=== PATIENT | male | born 1955 | race Caucasian/White ===

== ENCOUNTER 2017-01-04 21:58 | Emergency (ER) | payer MEDICARE, BC ==
[2017-01-04] MEDS ORDERED: HYDROmorphone 1 MG/ML 1 ML SYRINGE IM STA (22:17)
[2017-01-04 22:19] VITALS: RESP 16
--- NOTE | 2017-01-05 00:01 | XR ---
HIP AND PELVIS, 3 views INDICATION: Fall COMPARISON: None FINDINGS: AP view of the pelvis and AP and crosstable lateral views of the left hip are obtained. The bones are osteopenic. The sacroiliac joints, hip joints, and pubic symphysis are normally aligned. Stool-filled rectum partially obscures the sacrum and coccyx. There is lumbosacral fusion hardware with fractured sacral screw visible on the lateral view. Surgical clips project over the left sacrum. There is severe osteoarthritis of the left hip with bone on bone articulation, femoral collar osteophytes, subchondral sclerosis, and cystic changes involving both the acetabulum and the femoral head there is remodeling of the femoral head with flattening superiorly. No acute displaced fracture is visualized. IMPRESSION: 1. No acute fracture or dislocation identified. 2. Severe left hip osteoarthritis. 3. Lumbosacral fusion hardware with fractured sacral screw.
--- NOTE | 2017-01-05 00:37 | ED ---
Fall HPI - General Stated Complaint: FALL Time Seen by Provider: 01/04/17 22:04 Source: patient, EMS Mode of arrival: EMS - Related Data Home Medications Medication Instructions Recorded Confirmed Baclofen [Lioresal] 10 mg PO TID 08/08/15 01/04/17 HYDROcodone/APAP 10-325MG [[place] 1 tab PO Q6HR PRN 08/08/15 01/04/17 10-325] Phentermine HCl [Adipex-P] 37.5 mg PO QAM PRN 08/08/15 01/04/17 Furosemide [Lasix] 40 mg PO HS 01/04/17 01/04/17 Sertraline HCl [Zoloft] 50 mg PO HS 01/04/17 01/04/17 Allergies Allergy/AdvReac Type Severity Reaction Status Date / Time No Known Allergies Allergy Verified 01/04/17 22:19 Review of Systems ROS Statement: Those systems with pertinent positive or pertinent negative responses have been documented in the HPI. ROS Other: All systems not noted in ROS Statement are negative. Past Medical History Past Medical History: No Reported History Additional Past Medical History / Comment(s): falls(most recent 08-08-15) MS, arthritis lt hip, occ leg tremors, migraines in past. past bedsore between buttocks-since healed History of Any Multi-Drug Resistant Organisms: None Reported Past Surgical History: Appendectomy, Back Surgery, Orthopedic Surgery Additional Past Surgical History / Comment(s): pain pump, lt knee meniscus repair, back sx plate/screws, nose severed off when salt grinder flew into face-had sx to repair Past Anesthesia/Blood Transfusion Reactions: No Reported Reaction Additional Past Anesthesia/Blood Transfusion Reaction / Comment(s): clausterphobia Past Psychological History: Depression Smoking Status: Never smoker Past Alcohol Use History: None Reported Past Drug Use History: Marijuana - Past Family History Mother Family Medical History: Cancer, Dementia Additional Family Medical History / Comment(s): breast cancer Father Additional Family Medical History / Comment(s): after anuerysm sx General Exam Limitations: physical limitation Course Vital Signs 01/04/17 01/04/17 22:14 22:57 Temperature 98.3 F Pulse Rate 88 Respiratory 16 16 Rate Blood Pressure 143/86 O2 Sat by Pulse 99 Oximetry Disposition Clinical Impression: Fall, Hip pain, left Disposition: HOME SELF-CARE Condition: Good Instructions: Fall Prevention (ED), Hip Pain (ED) Referrals: Brendan Magaña MD [Primary Care Provider] - 1-2 days
[2017-01-05 00:59] VITALS: BP 168/70; PULSE 60; TEMP 98
== END 2017-01-05 00:58 | disposition home or self-care (01) ==
LOC: EC 21:58
DX: M25.552 Pain in left hip (principal); M16.12 Unilateral primary osteoarthritis, left hip; Z98.890 Other specified postprocedural states; Z79.899 Other long term (current) drug therapy; W05.0XXA Fall from non-moving wheelchair, initial encounter
CPT/HCPCS: 73502; 99283; 96372; J1170

== ENCOUNTER 2018-11-11 11:11 | Inpatient (IN) | payer BC, MEDICARE ==
[2018-11-11] MEDS ORDERED: SODIUM CHLORIDE 0.9% 500 ML 500 ML IV STA (11:55)
[2018-11-11] MEDS ORDERED: MORPHINE SULFATE 4 MG/ML SYRINGE IV STA (11:55)
[2018-11-11] MEDS ORDERED: SODIUM CHLORIDE 0.9% 1,000 ML IV STA ×2 (11:55)
--- NOTE | 2018-11-11 12:11 | ED ---
Weakness HPI - General Chief complaint: Extremity Problem,Nontraumatic Stated complaint: LEG PAIN Time Seen by Provider: 11/11/18 11:27 Source: patient, RN notes reviewed, old records reviewed Mode of arrival: EMS Limitations: no limitations - History of Present Illness Initial comments: This is a 63-year-old male the ER for evaluation. Patient has significant medical history significant for severe debility, patient has significant contractures and states having significant left hip pain. Muscle tightness and feels weak. No recent change in medications. No significant new injuries. MD Complaint: generalized weakness -: days(s) Location: generalized, LLE Severity: severe Severity scale (1-10): 8 Quality: aching Consistency: constant Improves with: none Worsens with: none Associated Symptoms: denies other symptoms - Related Data Home Medications Medication Instructions Recorded Confirmed Baclofen [Lioresal] 30 mg PO DAILY@2200 08/08/15 11/11/18 HYDROcodone/APAP 10-325MG [[place] 1 tab PO Q6HR PRN 08/08/15 11/11/18 10-325] Acetaminophen Tab [Tylenol Tab] 650 mg PO Q4H PRN 11/11/18 11/11/18 Baclofen [Lioresal] 20 mg PO BID@0600,1400 11/11/18 11/11/18 Bisacodyl 10 mg PO Q12H PRN 11/11/18 11/11/18 Cholecalciferol [Vitamin D3 (25 1,000 unit PO DAILY@0800 11/11/18 11/11/18 Mcg = 1000 Iu)] Cyanocobalamin (Vitamin B-12) 1,000 mcg PO DAILY@0800 11/11/18 11/11/18 [Vitamin B-12] Magnesium Oxide [Mag-Ox] 400 mg PO BID@0800,2000 11/11/18 11/11/18 Modafinil [Provigil] 200 mg PO DAILY PRN 11/11/18 11/11/18 Sennosides [Senna] 8.6 mg PO BID@0800,1600 11/11/18 11/11/18 Sertraline [Zoloft] 100 mg PO DAILY@0600 11/11/18 11/11/18 Allergies Allergy/AdvReac Type Severity Reaction Status Date / Time No Known Allergies Allergy Verified 11/11/18 11:29 Review of Systems ROS Statement: Those systems with pertinent positive or pertinent negative responses have been documented in the HPI. ROS Other: All systems not noted in ROS Statement are negative. Past Medical History Past Medical History: No Reported History Additional Past Medical History / Comment(s): falls(most recent 08-08-15) MS, arthritis lt hip, occ leg tremors, migraines in past. past bedsore between buttocks-since healed History of Any Multi-Drug Resistant Organisms: None Reported Past Surgical History: Appendectomy, Back Surgery, Orthopedic Surgery Additional Past Surgical History / Comment(s): pain pump, lt knee meniscus repair, back sx plate/screws, nose severed off when sausage grinder flew into face-had sx to repair Past Anesthesia/Blood Transfusion Reactions: No Reported Reaction Additional Past Anesthesia/Blood Transfusion Reaction / Comment(s): clausterphobia Past Psychological History: Depression Smoking Status: Never smoker Past Alcohol Use History: None Reported Past Drug Use History: None Reported, Marijuana - Past Family History Mother Family Medical History: Cancer, Dementia Additional Family Medical History / Comment(s): breast cancer Father Additional Family Medical History / Comment(s): after anuerysm sx General Exam Limitations: no limitations General appearance: alert, in no apparent distress Head exam: Present: atraumatic, normocephalic, normal inspection Eye exam: Present: normal appearance, PERRL, EOMI. Absent: scleral icterus, conjunctival injection, periorbital swelling ENT exam: Present: normal exam, mucous membranes moist Neck exam: Present: normal inspection. Absent: tenderness, meningismus, lymphadenopathy Respiratory exam: Present: normal lung sounds bilaterally. Absent: respiratory distress, wheezes, rales, rhonchi, stridor Cardiovascular Exam: Present: regular rate, normal rhythm, normal heart sounds. Absent: systolic murmur, diastolic murmur, rubs, gallop, clicks GI/Abdominal exam: Present: soft, normal bowel sounds. Absent: distended, tenderness, guarding, rebound, rigid Extremities exam: Present: normal inspection, full ROM, normal capillary refill. Absent: tenderness, pedal edema, joint swelling, calf tenderness Back exam: Present: normal inspection Neurological exam: Present: alert, oriented X3, CN II-XII intact Psychiatric exam: Present: normal affect, normal mood Skin exam: Present: warm, dry, intact, normal color. Absent: rash Course Vital Signs 11/11/18 11/11/18 11:20 13:05 Temperature 98.0 F Pulse Rate 81 64 Respiratory 18 18 Rate Blood Pressure 114/86 119/72 O2 Sat by Pulse 96 96 Oximetry - Reevaluation(s) Reevaluation #1: 11/11/18 12:43 Medical records reviewed Reevaluation #2: 11/11/18 14:22 Patient still with significant pain. Weakness. EKG Findings - EKG Comments: EKG Findings:: EKG shows sinus rhythm rate of 60, VT 126, QRS 80, QTC 41 Medical Decision Making - Medical Decision Making 63 male with chronic debility, patient currently was severe muscle contractures and pain. Will admit for symptomatic therapy and hydration - Lab Data Result diagrams: 11/11/18 12:14 11/11/18 12:14 Lab Results 11/11/18 11/11/18 11/11/18 Range/Units 12:14 12:14 12:14 WBC 7.3 (3.8-10.6) k/uL RBC 4.56 (4.30-5.90) m/uL Hgb 13.7 (13.0-17.5) gm/dL Hct 41.6 (39.0-53.0) % MCV 91.2 (80.0-100.0) fL MCH 29.9 (25.0-35.0) pg MCHC 32.8 (31.0-37.0) g/dL RDW 12.7 (11.5-15.5) % Plt Count 254 (150-450) k/uL Neutrophils % 73 % Lymphocytes % 17 % Monocytes % 7 % Eosinophils % 0 % Basophils % 0 % Neutrophils # 5.3 (1.3-7.7) k/uL Lymphocytes # 1.3 (1.0-4.8) k/uL Monocytes # 0.5 (0-1.0) k/uL Eosinophils # 0.0 (0-0.7) k/uL Basophils # 0.0 (0-0.2) k/uL PT (9.0-12.0) sec INR (<1.2) APTT (22.0-30.0) sec Sodium 143 (137-145) mmol/L Potassium 4.4 (3.5-5.1) mmol/L Chloride 108 H (98-107) mmol/L Carbon Dioxide 25 (22-30) mmol/L Anion Gap 10 mmol/L BUN 31 H (9-20) mg/dL Creatinine 0.72 (0.66-1.25) mg/dL Est GFR (CKD-EPI)AfAm >90 (>60 ml/min/1.73 sqM) Est GFR (CKD-EPI)NonAf >90 (>60 ml/min/1.73 sqM) Glucose 97 (74-99) mg/dL Plasma Lactic Acid Aung 0.8 (0.7-2.0) mmol/L Calcium 9.6 (8.4-10.2) mg/dL Phosphorus 3.7 (2.5-4.5) mg/dL Total Bilirubin 0.6 (0.2-1.3) mg/dL AST 13 L (17-59) U/L ALT 17 L (21-72) U/L Alkaline Phosphatase 91 (38-126) U/L Troponin I (0.000-0.034) ng/mL NT-Pro-B Natriuret Pep pg/mL Total Protein 6.8 (6.3-8.2) g/dL Albumin 4.1 (3.5-5.0) g/dL 11/11/18 11/11/18 11/11/18 Range/Units 12:14 12:14 12:14 WBC (3.8-10.6) k/uL RBC (4.30-5.90) m/uL Hgb (13.0-17.5) gm/dL Hct (39.0-53.0) % MCV (80.0-100.0) fL MCH (25.0-35.0) pg MCHC (31.0-37.0) g/dL RDW (11.5-15.5) % Plt Count (150-450) k/uL Neutrophils % % Lymphocytes % % Monocytes % % Eosinophils % % Basophils % % Neutrophils # (1.3-7.7) k/uL Lymphocytes # (1.0-4.8) k/uL Monocytes # (0-1.0) k/uL Eosinophils # (0-0.7) k/uL Basophils # (0-0.2) k/uL PT 9.7 (9.0-12.0) sec INR 0.9 (<1.2) APTT 25.0 (22.0-30.0) sec Sodium (137-145) mmol/L Potassium (3.5-5.1) mmol/L Chloride (98-107) mmol/L Carbon Dioxide (22-30) mmol/L Anion Gap mmol/L BUN (9-20) mg/dL Creatinine (0.66-1.25) mg/dL Est GFR (CKD-EPI)AfAm (>60 ml/min/1.73 sqM) Est GFR (CKD-EPI)NonAf (>60 ml/min/1.73 sqM) Glucose (74-99) mg/dL Plasma Lactic Acid Aung (0.7-2.0) mmol/L Calcium (8.4-10.2) mg/dL Phosphorus (2.5-4.5) mg/dL Total Bilirubin (0.2-1.3) mg/dL AST (17-59) U/L ALT (21-72) U/L Alkaline Phosphatase (38-126) U/L Troponin I <0.012 (0.000-0.034) ng/mL NT-Pro-B Natriuret Pep 26 pg/mL Total Protein (6.3-8.2) g/dL Albumin (3.5-5.0) g/dL - Radiology Data Radiology results: report reviewed (X-ray pelvis and left hip is negative for acute disease), image reviewed Disposition Clinical Impression: Muscle spasticity, Multiple falls, Left leg weakness, Weakness, Chronic pain, Dehydration Disposition: ADMITTED IP TO THIS [facility] Condition: Good Is patient prescribed a controlled substance at d/c from ED?: No Referrals: Brendan Magaña MD [Primary Care Provider] - 1-2 days
[2018-11-11 12:31] LABS: Basophils % (A) 0 %; Eosinophils % (A) 0 %; HCT 41.6 % (39.0-53.0); HGB 13.7 gm/dL (13.0-17.5); Lymphocytes # (A) 1.3 k/uL (1.0-4.8); Lymphocytes % (A) 17 %; MCH 29.9 pg (25.0-35.0); MCHC 32.8 g/dL (31.0-37.0); MCV 91.2 fL (80.0-100.0); Mean Platelet Volume 6.7; Monocytes # (A) 0.5 k/uL (0-1.0); Monocytes % (A) 7 %; Neutrophils # (A) 5.3 k/uL (1.3-7.7); Neutrophils % (A) 73 %; Platelet Count 254 k/uL (150-450); RBC 4.56 m/uL (4.30-5.90); RDW 12.7 % (11.5-15.5); WBC 7.3 k/uL (3.8-10.6)
[2018-11-11] MEDS ORDERED: DIAZEPAM 5 MG/ML 2 ML INJ IVP STA (12:36)
[2018-11-11 12:41] LABS: INR 0.9 (<1.2); Prothrombin Time 9.7 sec (9.0-12.0)
--- NOTE | 2018-11-11 13:03 | XR ---
EXAMINATION TYPE: XR chest 1V DATE OF EXAM: 11/11/2018 COMPARISON: NONE HISTORY: Weakness TECHNIQUE: Single frontal view of the chest is obtained. FINDINGS: There is no focal air space opacity, pleural effusion, or pneumothorax seen. The cardiac silhouette size is within normal limits. The osseous structures are intact. AC joint arthropathy. IMPRESSION: No acute process.
[2018-11-11 13:06] LABS: ALT 17 U/L (21-72); AST 13 U/L (17-59); African American GFR (CKD) >90 (>60 ml/min/1.73 sqM); Albumin 4.1 g/dL (3.5-5.0); Alkaline Phosphatase 91 U/L (38-126); Anion Gap 10 mmol/L; Blood Urea Nitrogen 31 mg/dL (9-20); Calcium 9.6 mg/dL (8.4-10.2); Carbon Dioxide 25 mmol/L (22-30); Chloride 108 mmol/L (98-107); Glucose 97 mg/dL (74-99); Phosphorus 3.7 mg/dL (2.5-4.5); Potassium 4.4 mmol/L (3.5-5.1); Sodium 143 mmol/L (137-145); Total Bilirubin 0.6 mg/dL (0.2-1.3); Total Protein 6.8 g/dL (6.3-8.2)
--- NOTE | 2018-11-11 13:06 | XR ---
EXAMINATION TYPE: XR Hip LT and AP Pelvis DATE OF EXAM: 11/11/2018 COMPARISON: 01/04/2017 HISTORY: Pain TECHNIQUE: A single AP view of the pelvis is obtained. Two views of the left hip are obtained. FINDINGS: The bones are osteopenic. The sacroiliac joints, hip joints, and pubic symphysis are brandon lly aligned. Stool-filled rectum partially obscures the sacrum and coccyx. There is lumbosacral fusio n hardware with fractured sacral screw visible on the lateral view. Surgical clips project over the l eft sacrum. There is severe osteoarthritis of the left hip with bone on bone articulation, femoral collar osteoph ytes, subchondral sclerosis, and cystic changes involving both the acetabulum and the femoral head th ere is remodeling of the femoral head with flattening superiorly. No acute displaced fracture is visu alized. IMPRESSION: 1. No acute fracture or dislocation identified. 2. Severe left hip osteoarthritis. Complete loss of joint space and remodeling of the femoral head ca n be seen with osteonecrosis. Sclerotic density along the neck of the femur could be on the basis of a chronic stress injury or fracture and is similar in appearance to the previous exam 3. Lumbosacral fusion hardware with fractured sacral screw.
[2018-11-11] MEDS ORDERED: ONDANSETRON 4 MG/2 ML VIAL IVP PRN (14:20)
[2018-11-11] MEDS ORDERED: MORPHINE SULFATE 4 MG/ML SYRINGE IVP PRN (14:20)
[2018-11-11] MEDS ORDERED: ONDANSETRON 4 MG/2 ML VIAL IVP STA (14:20)
[2018-11-11] MEDS ORDERED: ACETAMINOPHEN TAB 325 MG TAB PO PRN (16:34)
[2018-11-11] MEDS ORDERED: MODAFINIL 200 MG TAB PO PRN (16:34)
[2018-11-11] MEDS ORDERED: BISACODYL 5 MG TABLET.DR PO PRN (16:34)
[2018-11-11] MEDS ORDERED: ALPRAZolam 0.25 MG TAB PO PRN (16:36)
[2018-11-11] MEDS ORDERED: TEMAZEPAM 15 MG CAP PO PRN (16:36)
[2018-11-11 18:33] LABS: Appearance,Urine Clear (Clear); Bilirubin,Urine Negative (Negative); Blood,Urine Negative (Negative); Color,Urine Yellow; Glucose,Urine (UA) Negative (Negative); Ketones,Urine Negative (Negative); Leukocyte Esterase,Urine Negative (Negative); Nitrite,Urine Negative (Negative); PH, Urine 5.5 (5.0-8.0); Protein,Urine Negative (Negative); Specific Gravity,Urine 1.026 (1.001-1.035); Urobilinogen,Urine <2.0 mg/dL (<2.0)
[2018-11-11] MEDS: HYDROcodone/APAP 10-325MG 1 EACH TAB PO PRN (19:32)
[2018-11-11] MEDS: MAGNESIUM OXIDE 400 MG TAB PO SCH (19:32)
[2018-11-11] MEDS: BACLOFEN 10 MG TAB PO SCH (21:03)
[2018-11-11] MEDS: HEPARIN SODIUM,PORCINE 5,000 UNIT/ML 1 ML VIAL SQ SCH (21:03)
[2018-11-11] MEDS: HYDROmorphone 0.5 MG/0.5 ML SYRINGE IVP PRN (21:33)
--- NOTE | 2018-11-11 22:44 | HP ---
HISTORY AND PHYSICAL CHIEF COMPLAINT: Back pain and leg pain. HISTORY OF PRESENT ILLNESS: This 63-year-old gentleman with a past medical history of multiple medical problems including history of multiple sclerosis, history of chronic pain syndrome, history of DJD, had a pain pump inserted about 10 years ago and apparently subsequently pain pump was removed recently and the patient also had significant pains and aches as well. The patient was in [facility] at this time. The patient is complaining of severe pain especially when transferring. The patient taken to [facility] and admitted to the hospital for further evaluation and treatment. There is no history of fever, rigors or chills. No history of headache, loss of consciousness, seizures. The patient being followed by Dr. Magaña in the outpatient setting. PAST MEDICAL HISTORY: Past medical history of multiple sclerosis, history of chronic low back pain, history of back surgery, history of multiple falls and gait dysfunction. MEDICATIONS: Prior to admission include home medications are: 1. Zoloft 100 mg p.o. daily. 2. Senna 8.6 mg p.o. b.i.d. 4. Magnesium oxide 400 mg p.o. b.i.d. 5. [place] 10 mg q.6h p.r.n. 6. Vitamin B12 1000 mcg. 7. Vitamin D3 1000 units daily. 8. Bisacodyl 10 mg p.o. b.i.d. p.r.n. 9. Lioresal 20 mg p.o. b.i.d. 10.Lioresal 30 mg p.o. daily. 11.Tylenol 650 q.4 p.r.n. ALLERGIES: None. FAMILY HISTORY: History of cancer, dementia, breast cancer. SOCIAL HISTORY: No history of smoking. No history of alcohol. REVIEW OF SYSTEMS: ENT: No diminished vision. No diminished hearing. Cardiovascular: No angina or palpitations. RESPIRATORY: As mentioned earlier. GI no nausea or vomiting. no dysuria or hematuria. CENTRAL NERVOUS SYSTEM: As mentioned earlier. ALLERGY/IMMUNOLOGY: No asthma. No hayfever. MUSCULOSKELETAL: As mentioned earlier. HEMATOLOGY/ONCOLOGY: No anemia. Endocrine no history of diabetes or hypothyroid. CONSTITUTIONAL: As mentioned earlier. DERMATOLOGY: Negative. RHEUMATOLOGY: Negative. PSYCHIATRY: As mentioned earlier. PHYSICAL EXAMINATION: Patient is alert, oriented x3. The pulse is 64, blood pressure 119/72, respiration 18, temperature 98 degrees, pulse ox 97% on room air. HEENT: Conjunctivae normal. NECK: No jugular venous distention. Cardiovascular: S1, S2 muffled. RESPIRATORY: Breath sounds diminished in the bases. Bilateral scattered rhonchi and crackles. ABDOMEN: Soft, nontender. No mass palpable. LEGS: No edema. No swelling. NERVOUS SYSTEM: Higher functions as mentioned earlier, significant weakness and wasting in the present bilateral lower leg and lower legs, which is rather contracted. Wounds are very painful. Gait cannot be tested. SKIN: No ulcers, rashes or bleeding. JOINTS: No active deforming arthropathy. LYMPHATICS: No lymph nodes palpable in the neck, axillae or groin. LABS: CBC within normal limits, sodium 143, potassium 4.4, anion gap 31. AST, ALT normal. ASSESSMENT: 1. Severe back pain, leg pain as well as gait dysfunction. Dehydration with high BUN 2. Possible degenerative joint disease. 3. History of multiple sclerosis. 4. History of leg tremors. 5. History of migraine. 6. History of pain pump insertion and removal. 7. History of appendectomy. 8. Depression. RECOMMENDATIONS AND DISCUSSION: This 63-year-old gentleman who presented with multiple complex medical issues, we will monitor the patient closely, continue the current medications, management and symptomatic treatment. iv fluids. Otherwise, at this time, I recommend continue with symptomatic treatment and DVT prophylaxis, PT/OT evaluation. Patient is started on p.r.n. morphine. Resume the home medications. Guarded prognosis because of multiple complex medical issues. Further recommendations to follow. MMODL / IJN: [id number] / DANIS
[2018-11-11] MEDS: DIAZEPAM 5 MG/ML 2 ML INJ IVP PRN (23:02)
[2018-11-12] MEDS: BACLOFEN 10 MG TAB PO SCH ×3 (05:54→20:47)
[2018-11-12] MEDS: HYDROcodone/APAP 10-325MG 1 EACH TAB PO PRN ×4 (05:54→23:18)
[2018-11-12] MEDS: SERTRALINE 100 MG TAB PO SCH (05:54)
[2018-11-12 08:02] LABS: Basophils % (A) 0 %; Eosinophils % (A) 0 %; HCT 40.9 % (39.0-53.0); HGB 12.9 gm/dL (13.0-17.5); Lymphocytes # (A) 1.3 k/uL (1.0-4.8); Lymphocytes % (A) 21 %; MCH 29.2 pg (25.0-35.0); MCHC 31.5 g/dL (31.0-37.0); MCV 92.7 fL (80.0-100.0); Mean Platelet Volume 6.8; Monocytes # (A) 0.3 k/uL (0-1.0); Monocytes % (A) 6 %; Neutrophils # (A) 4.4 k/uL (1.3-7.7); Neutrophils % (A) 71 %; Platelet Count 252 k/uL (150-450); RBC 4.41 m/uL (4.30-5.90); RDW 12.7 % (11.5-15.5); WBC 6.2 k/uL (3.8-10.6)
[2018-11-12 08:06] LABS: African American GFR (CKD) >90 (>60 ml/min/1.73 sqM); Anion Gap 6 mmol/L; Blood Urea Nitrogen 25 mg/dL (9-20); Calcium 9.2 mg/dL (8.4-10.2); Carbon Dioxide 31 mmol/L (22-30); Chloride 106 mmol/L (98-107); Glucose 90 mg/dL (74-99); Potassium 4.4 mmol/L (3.5-5.1); Sodium 143 mmol/L (137-145)
[2018-11-12] MEDS: DIAZEPAM 5 MG/ML 2 ML INJ IVP PRN ×2 (08:24→15:43)
[2018-11-12] MEDS: CHOLECALCIFEROL 1,000 UNIT TAB PO SCH (08:33)
[2018-11-12] MEDS: SENNOSIDES 8.6 MG TAB PO SCH ×2 (08:33→17:50)
[2018-11-12] MEDS: CYANOCOBALAMIN 500 MCG TAB PO SCH (08:34)
[2018-11-12] MEDS: HEPARIN SODIUM,PORCINE 5,000 UNIT/ML 1 ML VIAL SQ SCH ×2 (08:35→20:46)
[2018-11-12] MEDS: PANTOPRAZOLE 40 MG TABLET PO SCH (08:35)
[2018-11-12] MEDS: MAGNESIUM OXIDE 400 MG TAB PO SCH ×2 (08:35→20:46)
--- NOTE | 2018-11-12 10:05 | P.CNOR ---
History of Present Illness - [facility] Consult date: 11/12/18 Consult reason: joint pain History of present illness: Patient is a 63-year-old male that was admitted to [facility] yesterday with regards to generalized weakness and left hip pain. Patient has a very detailed history of left lower extremity weakness, muscle spasticity, history of MS, and previous back surgery. Patient was admitted to internal medicine for further workup, orthopedic team was consulted with regards to the left hip pain. Patient was evaluated today at bedside, Dr. Melendez was available to examine the patient with me. Patient is a poor historian on the timeline of his previous surgeries. Patient states he's had left hip pain for many years. He has a history of a lumbar surgery, he states this was done about 10 years ago in [place]. He admits to left lower extremity weakness for a number of years. Patient had some type of pain pump placed at a different hospital, nursing mentioned Jeffery Giron. The pump was recently removed, patient states that this was done in [place] this was done about a week ago. He states since then, the leg is significantly contracted and he is unable to move it. Patient denies any previous orthopedic surgery involving the left lower extremity. Patient states that he does not ambulate, he does transfer. He does have help at home from his family. Review of Systems Constitutional: Reports as per [facility] Past Medical History Past Medical History: No Reported History, Neurologic Disorder Additional Past Medical History / Comment(s): Patient diagnosed with MS 2008. Falls(most recently 11/04/2018). Arthritis left hip. Leg tremors. Bilateral LE contractures. migraines in past. Hx. of past bedsore between buttocks-since he aled. History of Any Multi-Drug Resistant Organisms: None Reported Past Surgical History: Appendectomy, Back Surgery, Orthopedic Surgery Additional Past Surgical History / Comment(s): pain pump removed about 2 weeks ago 10/2018. lt knee meniscus repair. back sx plate/screws, nose severed off when double end production grinder flew into face-had sx to repair Past Anesthesia/Blood Transfusion Reactions: No Reported Reaction Additional Past Anesthesia/Blood Transfusion Reaction / Comm: clausterphobia Past Psychological History: Depression Additional Psychological History / Comment(s): mild depression.stated no thoughts of harming self. Smoking Status: Never smoker Past Alcohol Use History: None Reported Past Drug Use History: None Reported, Marijuana Additional Drug Use History / Comment(s): past marijuana in high school none since - Past Family History Mother Family Medical History: Cancer, Dementia Additional Family Medical History / Comment(s): breast cancer Father Additional Family Medical History / Comment(s): after anuerysm sx Medications and Allergies Home Medications Medication Instructions Recorded Confirmed Type Baclofen [Lioresal] 30 mg PO DAILY@2200 08/08/15 11/11/18 History HYDROcodone/APAP 10-325MG [[place] 1 tab PO Q6HR PRN 08/08/15 11/11/18 History 10-325] Acetaminophen Tab [Tylenol Tab] 650 mg PO Q4H PRN 11/11/18 11/11/18 History Baclofen [Lioresal] 20 mg PO BID@0600,1400 11/11/18 11/11/18 History Bisacodyl 10 mg PO Q12H PRN 11/11/18 11/11/18 History Cholecalciferol [Vitamin D3 (25 1,000 unit PO DAILY@0800 11/11/18 11/11/18 His tory Mcg = 1000 Iu)] Cyanocobalamin (Vitamin B-12) 1,000 mcg PO DAILY@0800 11/11/18 11/11/18 History [Vitamin B-12] Magnesium Oxide [Mag-Ox] 400 mg PO BID@0800,2000 11/11/18 11/11/18 History Modafinil [Provigil] 200 mg PO DAILY PRN 11/11/18 11/11/18 History Sennosides [Senna] 8.6 mg PO BID@0800,1600 11/11/18 11/11/18 History Sertraline [Zoloft] 100 mg PO DAILY@0600 11/11/18 11/11/18 History Allergies Allergy/AdvReac Type Severity Reaction Status Date / Time No Known Allergies Allergy Verified 11/11/18 11:29 Physical Examination Left lower extremity: No obvious open lesions or sores visualized throughout the extremity, no significant areas of soft tissue swelling or erythema Severe contraction of the left hip and knee, the hip is flexed past 90 and the knee is at least to 130 Attempt at passive motion of the hip and knee is unachievable, this reproduces significant discomfort Skin is warm to touch Results - Labs Labs: Abnormal Lab Results - Last 24 Hours (Table) 11/11/18 11/12/18 11/12/18 Range/Units 12:14 07:40 07:40 Hgb 12.9 L (13.0-17.5) gm/dL Chloride 108 H (98-107) mmol/L Carbon Dioxide 31 H (22-30) mmol/L BUN 31 H 25 H (9-20) mg/dL AST 13 L (17-59) U/L ALT 17 L (21-72) U/L H & H 11/11/18 11/12/18 Range/Units 12:14 07:40 Hgb 13.7 12.9 L (13.0-17.5) gm/dL Hct 41.6 40.9 (39.0-53.0) % Coagulation 11/11/18 Range/Units 12:14 INR 0.9 (<1.2) Result Diagrams: 11/12/18 07:40 11/12/18 07:40 - Diagnostic results Hip x-ray: report reviewed, image reviewed Assessment and Plan Plan: Imaging: X-rays of the left hip were obtained and reviewed, images demonstrate severe osteoarthritis of left hip. Evidence of lumbar hardware present. Assessment: 1. Severe left hip osteoarthritis 2. Severe muscle contractures left lower extremity 3. Multiple medical comorbidities Plan: Dr. Melendez was available to examine the patient and discuss his current condition at bedside today. No orthopedic surgical intervention at this time. Due to the patient's severe contractures and current medical state, hip arthroplasty is not an option Recommend neurology evaluation for further workup regarding muscle contractures and history of recent pain pump removal Pain control per primary medical service GI and DVT prophylaxis per primary medical service We'll be available for any further questions regarding this patient Time with Patient: Less than 30
[2018-11-12] MEDS: HYDROmorphone 0.5 MG/0.5 ML SYRINGE IVP PRN ×2 (12:59→20:47)
--- NOTE | 2018-11-12 17:50 | PN ---
PROGRESS NOTE . DATE OF SERVICE: 11/12/2018 This 63-year-old gentleman being followed by Dr. Magaña in the outpatient setting was admitted with significant pain and weakness referred from [facility] in [place]. The patient apparently had difficulties in transferring also. The pain pump was recently discontinued for unknown reasons from [facility]. Orthopedics following the patient. Patient has significant DJD as well as left hip arthroplasty also. PAST MEDICAL HISTORY: Reviewed. REVIEW OF SYSTEMS: CARDIOVASCULAR: No angina or palpitations. RESPIRATORY: As mentioned earlier. GI: As mentioned earlier. : No dysuria. CENTRAL NERVOUS SYSTEM: No numbness, weakness. CURRENT MEDICATIONS: Reviewed and include: 1. Tylenol 650 q.4h. 2. [facility] 10 mg q6h. 3. Xanax 0.5 t.i.d. 4. Lioresal 30 mg. 5. Dulcolax 10 mg b.i.d. 6. Vitamin D3 1000 daily. 7. Vitamin B 1000 daily. 8. Valium 5 mg IV q.6h. 9. Heparin 5000 subcu b.i.d. 10.Dilaudid 0.5 mg IV q.3. 11.Magnesium oxide 400 mg p.o. b.i.d. 12.Provigil 200 mg. 13.Zofran 4 mg q.6h. 14.Protonix 40 mg. 15.Senokot 8.6 b.i.d. 16.Zoloft 100 mg. 17.Restoril 50 mg q.h.s. p.r.n. PHYSICAL EXAM: Patient is alert and oriented x3. Pulse 67, blood pressure 107/68, respirations 16, temperature 98.2, pulse ox 98% on room air. HEENT: Conjunctivae normal. NECK: No jugular venous distention. CARDIAC: S1, S2 muffled. RESPIRATIONS: Breath sounds diminished in the bases. Bilateral scattered rhonchi and crackles. ABDOMEN: Soft, nontender. No mass palpable. LEGS: Minimal wasting and significant weakness, severe tenderness moving the legs also. NERVOUS SYSTEM: Diffusely weak. LABS: WBC 6.2, hemoglobin 12.9, sodium 143, potassium 4.3. ASSESSMENT: 1. Severe back pain, leg pain as well as gait dysfunction. 2. Dehydration with high BUN present on admission. 3. Acute on chronic back pain and leg pain with failure of outpatient treatment. 4. Severe degenerative joint disease of the left hip. 5. Paraparesis. 6. History of multiple sclerosis. 7. History of leg tremors. 8. History of migraine. 9. History of pain pump removal insertion recently. 10.History of appendectomy. 11.History of depression. RECOMMENDATIONS AND DISCUSSION: In this 63-year-old gentleman who presented with multiple complex medical issues, we will monitor the patient closely, continue the current medications, management and symptomatic treatment. I would also recommend continue with pain medications. PT/OT evaluation. Orthopedic input appreciated. I would continue with high IV hydration and I would also recommend pain medication consultation and neurology consultation. Prognosis guarded. The patient will require more than 2 nights stay in the hospital for evaluation and treatment of the multiple medical issues as listed above. Further recommendations to follow. SONU / JESUS: [id number] /
[2018-11-13] MEDS: HYDROmorphone 0.5 MG/0.5 ML SYRINGE IVP PRN ×4 (02:36→22:29)
[2018-11-13] MEDS: DIAZEPAM 5 MG/ML 2 ML INJ IVP PRN (03:08)
[2018-11-13] MEDS: SERTRALINE 100 MG TAB PO SCH (05:00)
[2018-11-13] MEDS: BACLOFEN 10 MG TAB PO SCH ×3 (05:00→22:27)
[2018-11-13] MEDS: CYANOCOBALAMIN 500 MCG TAB PO SCH (07:39)
[2018-11-13] MEDS: SENNOSIDES 8.6 MG TAB PO SCH ×2 (07:39→17:57)
[2018-11-13] MEDS: CHOLECALCIFEROL 1,000 UNIT TAB PO SCH (07:39)
[2018-11-13] MEDS: HEPARIN SODIUM,PORCINE 5,000 UNIT/ML 1 ML VIAL SQ SCH ×2 (07:39→20:46)
[2018-11-13] MEDS: PANTOPRAZOLE 40 MG TABLET PO SCH (07:39)
[2018-11-13] MEDS: MAGNESIUM OXIDE 400 MG TAB PO SCH ×2 (07:39→20:48)
[2018-11-13] MEDS: HYDROcodone/APAP 10-325MG 1 EACH TAB PO PRN ×3 (07:42→20:45)
[2018-11-13 09:29] LABS: Basophils % (A) 0 %; Eosinophils % (A) 1 %; HCT 40.8 % (39.0-53.0); HGB 13.2 gm/dL (13.0-17.5); Lymphocytes # (A) 1.4 k/uL (1.0-4.8); Lymphocytes % (A) 26 %; MCH 29.4 pg (25.0-35.0); MCHC 32.3 g/dL (31.0-37.0); MCV 90.8 fL (80.0-100.0); Mean Platelet Volume 7.4; Monocytes # (A) 0.3 k/uL (0-1.0); Monocytes % (A) 5 %; Neutrophils # (A) 3.7 k/uL (1.3-7.7); Neutrophils % (A) 67 %; Platelet Count 235 k/uL (150-450); RDW 12.9 % (11.5-15.5); WBC 5.5 k/uL (3.8-10.6)
[2018-11-13 09:33] LABS: African American GFR (CKD) >90 (>60 ml/min/1.73 sqM); Anion Gap 4 mmol/L; Blood Urea Nitrogen 18 mg/dL (9-20); Calcium 9.6 mg/dL (8.4-10.2); Carbon Dioxide 33 mmol/L (22-30); Chloride 104 mmol/L (98-107); Glucose 111 mg/dL (74-99); Potassium 4.2 mmol/L (3.5-5.1); Sodium 141 mmol/L (137-145)
--- NOTE | 2018-11-13 16:57 | PN ---
PROGRESS NOTE DATE OF SERVICE: 11/13/2018 This 63-year-old gentleman being followed by Dr. Magaña in the outpatient setting was admitted with significant pain and weakness. The patient recently had a baclofen pump removed from the abdomen because of concerns about leaking into the CSF fluid causing extraocular muscle weakness and paralysis, according to the patient. Multiple consultants, including Pain Management and Orthopedic Surgery, are following the patient closely. Past medical history reviewed. REVIEW OF SYSTEMS: CARDIOVASCULAR SYSTEM: No angina, palpitations. RESPIRATORY SYSTEM: As mentioned earlier. GI: As mentioned earlier. : No dysuria or retention. NERVOUS SYSTEM: No numbness. CURRENT MEDICATIONS: Reviewed. They include: 1. Tylenol 650 q.4 p.r.n. 2. Carrizozo 10 mg q.6 p.r.n. 3. Xanax 0.25 t.i.d. 4. Lioresal. 5. Dulcolax. 6. Vitamin D3. 7. Vitamin B12. 8. Valium. 9. Heparin subcutaneously b.i.d. 10.Provigil. 11.Zofran. 12.Zoloft. 13.Restoril p.r.n. Medication doses are reviewed. PHYSICAL EXAMINATION: Patient is alert, oriented x3. Pulse 63, blood pressure 126/81, respiration 17, temperature 98.1, pulse ox 94% on room air. HEENT: Conjunctivae normal. NECK: No jugular venous distention. CARDIOVASCULAR SYSTEM: S1, S2 muffled. RESPIRATORY SYSTEM: Breath sounds diminished at the bases. A few scattered rhonchi and crackles. ABDOMEN: Soft, non-tender. LEGS: Diffuse contractures and tenderness also present. LABS: WBC 5.2, hemoglobin 13.2. Sodium 140, potassium 4.2. ASSESSMENT: 1. Severe back pain, leg pain, gait dysfunction, possible acute on chronic back pain. 2. Dehydration with high BUN, present on admission. 3. Acute on chronic back pain with leg pain with failure of outpatient treatment. 4. Severe degenerative joint disease of the left hip. 5. History of recent removal of the baclofen pain pump on the left abdomen because of extravasation to CSF apparently. 6. History of paraparesis. 7. History of multiple sclerosis. 8. History of leg tremors. 9. History of migraine. 10.History of appendectomy. 11.History of depression. RECOMMENDATIONS AND DISCUSSION: In this 63-year-old gentleman who presented with multiple complex medical issues, we will monitor the patient closely, continue the current management, continue with symptomatic treatment, continue with p.r.n. medications currently. Otherwise, I would also recommend continuing with pain management as well as Orthopedic Surgery. Neurology will also be consulted. Further recommendations to follow. Prognosis guarded because of multiple complex medical issues. See orders for further details. Discussed with the patient. DVT prophylaxis. Further recommendations to follow. MMODL / IJN: [id number] /
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
--- NOTE | 2018-11-14 00:27 | CONS ---
CONSULTATION DATE OF SERVICE: 11/13/2018 REFERRING PHYSICIAN: Dr. Mckenzie. HISTORY OF PRESENT ILLNESS: Thank you for allowing me to elevate David Ramachandran, who is a 63-year-old right- handed white male who presented to [facility] on 11/14/2015 for evaluation of a intractable left hip pain. The patient states he was having severe pain in the left hip, which he described as "cramping up really bad" and states it felt like the hip was "dislocated." The patient states this has been going on over the past 2 weeks and developed after a baclofen pump was removed at [facility] 2 weeks ago. The patient states the baclofen pump had been in place for several years and he claims this was removed because the battery was about to go and he was developing blurring of vision, which he attributed to the intrathecal baclofen. Apparently they were gradually reducing the intrathecal baclofen and increasing his oral baclofen; however, as the pump was turned down, the patient developed contractures of the lower extremities. He states after the baclofen pump was removed, they increased his oral dose of baclofen at [facility] and the patient states that he was doing fairly well regarding the lower extremity spasticity and tolerating the baclofen at the dose [facility] was providing. The patient is not sure what the previous dose of baclofen was, nor the dose being provided at [facility]. He claims that after being discharged from [facility], he went to [facility] and states that they were not providing the proper dose of baclofen, giving him less than he should be receiving. During this hospitalization, the patient had x-rays of his left hip, which demonstrated severe left hip osteoarthritis with complete loss of the joint space and remodeling of the femoral head with osteonecrosis. Orthopedic surgery has evaluated the patient during this hospitalization and does not intend to pursue surgical intervention. The patient also follows with Dr. Levi of Pain Management on an outpatient basis, who he has seen over the past year. Dr. Levi has been providing Libby which patient takes between a half and 1 tab q.6 hours. The patient has a history of relapsing remitting multiple sclerosis which was diagnosed in 2004 by a neurologist in [place]. The patient states he was briefly on Copaxone before for 5 months and discontinued this medication on his own. He states that his last exacerbation occurred around [id number] and his examination has remained stable for several years. The patient has been unable to ambulate over the past over the past 3-4 years secondary to a spastic paraparesis with more prominent involvement of the left lower extremity at baseline for the patient. The patient has no upper/lower extremity numbness or numbness in genital/rectal region. He does report urinary urgency, but denies urine/stool incontinence: The patient does wear a disposable undergarment because he is unable to ambulate to the bathroom. He reports a left upper extremity weakness, but denies difficulty chewing/swallowing, dysarthria, or visual loss/diplopia secondary to multiple sclerosis. The patient stated there is some doubt in his mind regarding the diagnosis of multiple sclerosis, despite being diagnosed with this by a neurologist in [place] and another neurologist after he moved to [place] 6 years ago. Outside of the brief period of time he was on Copaxone, he states he has not been on any other disease modifying therapy. ALLERGIES: No known drug allergies. HOME MEDICATIONS: Zoloft, senna, Provigil, Mag-Ox, Libby 10/325, B12, vitamin D, Bisacodyl , baclofen 20 mg-30 mg on a t.i.d. basis, and Tylenol. PAST MEDICAL HISTORY: Multiple sclerosis, degenerative joint disease, and depression. PAST SURGICAL HISTORY: Baclofen pump placement and recent removal 2 weeks ago, appendectomy, left knee arthroscopy and lumbar decompressive surgery x1. SOCIAL HISTORY: The patient denied tobacco use and states he quit drinking alcohol 15-20 years ago. He is with 1 child and lives in a house with his and 3 grandchildren. He is wheelchair bound, but transfers between the wheelchair and bed using a lift. FAMILY HISTORY: There is no family history of multiple sclerosis. The patient's father had abdominal AA with aortic aneurysm. REVIEW OF SYSTEMS: Fourteen systems are reviewed and no additional points identified. The review of systems as documented in history and physical. PHYSICAL EXAM: Upon my arrival to the patient's room, he was lying in bed, receptive to the examiner. Affect is mildly flat. He is fair/tangential historian and appears of stated age. VITAL SIGNS: Blood pressure is 126/81 with a pulse of 63, respiratory rate 17, temperature 98.1, weight is 80.2 kg on a 5 foot 7 inch frame. Extremities: The patient has contractures of both lower extremities with scissoring, more prominent on the left and neck. There is a scar over the right cheek, lateral to the nose, which she states was related to a previous trauma. NECK: Supple without meningeal signs. Arteries are nontender and without bruits. HEART: Regular rate and rhythm. HIGHER CORTICAL FUNCTION: MENTAL STATUS: Patient was alert, oriented, to time, place, person. He was able to name repeat and read there is no right or left disorientation, finger-nose extinction to double simultaneous stimulation or dysarthria. Cranial nerves 2-12. Pupils are equal and reactive to light symmetrically. No afferent pupillary defect. Visual samson are intact to confrontation with each eye assessed individually. 3,4,6: No ptosis, extraocular movements were full. No nystagmus. V pinprick light touch intact in all 3 divisions. Motor 5 intact. IIV no facial asymmetry or weakness. Acuity intact to finger rub. 9,10: Palate sen in the midline. 11: shoulder shrug was delayed on the left, 12 tongue protruded midline without fasciculation or atrophy. MOTOR EXAMINATION: There is a left upper extremity pronator drift. Normal. There is reduced bulk in hand intrinsic muscles with increased tone involving the left upper and bilateral lower extremities and no involuntary movements are noted. Strength in the upper extremities is listed on a 0-5 MRC scale, right side listed 1st. The deltoid 5/4+, biceps 5/5-, triceps 5/4+. Wrist extensors 5/4+, finger centers 5/4, interossei 4+/4. In lower extremities, the patient had no movement except subtle wiggling of the toes on the right foot. Sensory intact to light touch in all extremities. REFLEXES: Right sided listed first: Biceps 2/2+, brachioradialis 2/2+, triceps 2/2; lower extremity reflexes cannot be elicited in the setting of spasticity/contractures. Plantar response is extensor bilaterally. Camilo's is absent. COORDINATION: Finger to nose movements are intact. Cvad-[id number] cannot be performed. Rapid movements are slowed in left finger tapping. His chest x-ray demonstrated no acute pathology. Urinalysis demonstrated negative nitrite and leuko esterase. White blood cell count 5.5 with hemoglobin of 13.2, platelet count 235. Sodium 141, potassium 4.2, BUN 18 with a creatinine of 0.84. INR 0.9. Calcium 9.6, phosphorus 3.7, ALT 17, AST of 13. Troponin negative. BNP 26. IMPRESSION: 1. Secondary progressive multiple sclerosis without evidence of exacerbation, the patient was initially diagnosed with relapsing/remitting multiple sclerosis in 2004 by MRI/CSF results. Current deficits include spastic left hemiparesis/paraparesis and urinary urgency. 2. Intractable left hip pain, likely multifactorial in nature secondary to severe osteoarthritis (with complete loss of joint space and remodeling of the femoral head on x-ray)/contractures/spasticity. The patient developed increased left hip pain following baclofen pump removal at [facility] 2 weeks ago and claims after being discharged from [facility] was not receiving his proper baclofen dose. 3. Prerenal azotemia, resolved. 4. Since intrathecal baclofen has been discontinued, the patient reports improved cognitive function. 5. Depression. RECOMMENDATION: 1. I discussed my impression with the patient and nursing staff. 2. Records from [facility] have already been requested to clarify the appropriate oral baclofen dose, which the patient states he was tolerating and doing well with before being discharged from [facility]. 3. The patient follows with a pain management physician on an outpatient basis. 4. Orthopedic surgery has already evaluated the patient and does not plan to pursue surgical intervention. 5. Please feel free to contact me if there are further questions from a neurologic standpoint. Thank you for allowing me to participate in the care of this patient. SONU / JESUS: [id number] / [id number]
[2018-11-14] MEDS: HYDROmorphone 0.5 MG/0.5 ML SYRINGE IVP PRN ×3 (02:33→18:18)
[2018-11-14] MEDS: HYDROcodone/APAP 10-325MG 1 EACH TAB PO PRN ×3 (04:43→20:14)
[2018-11-14] MEDS: SERTRALINE 100 MG TAB PO SCH (06:20)
[2018-11-14] MEDS: BACLOFEN 10 MG TAB PO SCH ×3 (06:20→20:14)
[2018-11-14] MEDS: HEPARIN SODIUM,PORCINE 5,000 UNIT/ML 1 ML VIAL SQ SCH ×2 (07:52→20:15)
[2018-11-14] MEDS: PANTOPRAZOLE 40 MG TABLET PO SCH (07:52)
[2018-11-14] MEDS: SENNOSIDES 8.6 MG TAB PO SCH ×2 (07:52→15:21)
[2018-11-14] MEDS: MAGNESIUM OXIDE 400 MG TAB PO SCH ×2 (07:52→20:15)
[2018-11-14] MEDS: CYANOCOBALAMIN 500 MCG TAB PO SCH (07:52)
[2018-11-14] MEDS: CHOLECALCIFEROL 1,000 UNIT TAB PO SCH (07:52)
[2018-11-14 09:35] LABS: Basophils % (A) 0 %; Eosinophils % (A) 0 %; HCT 38.7 % (39.0-53.0); HGB 12.8 gm/dL (13.0-17.5); Lymphocytes # (A) 1.3 k/uL (1.0-4.8); Lymphocytes % (A) 19 %; MCHC 33.2 g/dL (31.0-37.0); MCV 90.6 fL (80.0-100.0); Mean Platelet Volume 7.1; Monocytes # (A) 0.4 k/uL (0-1.0); Monocytes % (A) 6 %; Neutrophils # (A) 4.8 k/uL (1.3-7.7); Neutrophils % (A) 72 %; Platelet Count 236 k/uL (150-450); RBC 4.28 m/uL (4.30-5.90); RDW 13.5 % (11.5-15.5); WBC 6.7 k/uL (3.8-10.6)
[2018-11-14 09:52] LABS: African American GFR (CKD) >90 (>60 ml/min/1.73 sqM); Anion Gap 7 mmol/L; Blood Urea Nitrogen 23 mg/dL (9-20); Calcium 9.5 mg/dL (8.4-10.2); Carbon Dioxide 30 mmol/L (22-30); Chloride 103 mmol/L (98-107); Glucose 101 mg/dL (74-99); Potassium 4.4 mmol/L (3.5-5.1); Sodium 140 mmol/L (137-145)
[2018-11-14] MEDS: DIAZEPAM 5 MG/ML 2 ML INJ IVP PRN (10:26)
--- NOTE | 2018-11-14 17:40 | P.PN ---
Subjective Progress Note Date: 11/14/18 Principal diagnosis: Severe back pain, leg pain. Acute on chronic. Patient is a 63-year-old male with a known history of multiple sclerosis with spastic left hemiparesis, with recent removal of intrathecal baclofen pump and chronic left hip pain due to osteoarthritis and contractures came to ER with the complaints of severe left hip pain and weakness. Patient is being followed by neurology, orthopedic surgery and pain management service. 11/14/2018 Patient is still complaining of left hip pain and back pain and spasms. Patient is being continued on baclofen and Dilaudid IV. No complaints of chest pain or shortness of breath. Denied any abdominal pain. No nausea vomiting. Tolerating oral diet. No fever no chills. Improving slowly. All other review of systems negative except the above. Active Medications Generic Name Dose Route Start Last Admin Trade Name Freq PRN Reason Stop Dose Admin Acetaminophen 650 mg 11/11/18 16:34 Tylenol Tab PO Q4H PRN MILD Pain Hydrocodone Bitart/Acetaminophen 1 each 11/11/18 16:34 11/14/18 15:21 [place] 10 PO 1 each Q6HR PRN Administration MODERATE Pain Alprazolam 0.25 mg 11/11/18 16:36 Xanax PO TID PRN Anxiety Baclofen 30 mg 11/11/18 22:00 11/13/18 22:27 Lioresal PO 30 mg DAILY@2200 MARLEEN Administration Baclofen 20 mg 11/12/18 06:00 11/14/18 15:21 Lioresal PO 20 mg BID@0600,1400 MARLEEN Administration Bisacodyl 10 mg 11/11/18 16:34 Dulcolax PO Q12H PRN Constipation Cholecalciferol 1,000 unit 11/12/18 08:00 11/14/18 07:52 Vitamin D3 (25 Mcg = 1000 Iu) PO 1,000 unit DAILY@0800 [facility] Administration Cyanocobalamin 1,000 mcg 11/12/18 08:00 11/14/18 07:52 Vitamin B-12 PO 1,000 mcg DAILY@0800 MARLEEN Administration Diazepam 5 mg 11/11/18 14:20 11/14/18 10:26 Valium IVP 5 mg Q6H PRN Administration Breakthrough Pain Heparin Sodium (Porcine) 5,000 unit 11/11/18 21:00 11/14/18 07:52 Heparin SQ 5,000 unit Q12HR MARLEEN Administration Hydromorphone HCl 0.5 mg 11/11/18 16:36 11/14/18 07:51 Dilaudid IVP 0.5 mg Q3HR PRN Administration Severe Pain Magnesium Oxide 400 mg 11/11/18 20:00 11/14/18 07:52 Mag-Ox PO 400 mg BID@0800,2000 MARLEEN Administration Modafinil 200 mg 11/11/18 16:34 Provigil PO DAILY PRN MS PAIN Ondansetron HCl 4 mg 11/11/18 14:20 Zofran IVP Q6HR PRN Nausea And Vomiting Pantoprazole Sodium 40 mg 11/12/18 07:30 11/14/18 07:52 Protonix PO 40 mg AC-BRKFST MARLEEN Administration Senna 8.6 mg 11/12/18 08:00 11/14/18 15:21 Senokot PO 8.6 mg BID@0800,1600 [facility] Administration Sertraline HCl 100 mg 11/12/18 06:00 11/14/18 06:20 Zoloft PO 100 mg DAILY@0600 [facility] Administration Temazepam 15 mg 11/11/18 16:36 11/13/18 22:28 Restoril PO 15 mg HS PRN Administration Insomnia Objective - Vital Signs Vital signs: Vital Signs Temp 98.9 F 11/14/18 12:09 Pulse 65 11/14/18 12:09 Resp 17 11/14/18 12:09 BP 120/71 11/14/18 12:09 Pulse Ox 96 11/14/18 12:09 Intake & Output 11/13/18 11/14/18 11/14/18 18:59 06:59 18:59 Output Total 300 Balance -300 Output: Urine 300 Other: Voiding Method Urinal Urinal # Voids 6 2 - Exam PHYSICAL EXAMINATION: Patient is lying in the bed comfortably, no acute distress, awake alert and oriented.. HEENT: Normocephalic. Neck is supple. Pupils reactive. Nostrils clear. Oral cavity is moist. Ears reveal no drainage. Neck reveals no JVD, carotid bruits, or thyromegaly. CHEST EXAMINATION: Trachea is central. Symmetrical expansion. Bibasilar diminished air entry. Lung samson clear to auscultation and percussion. CARDIAC: Normal S1, S2 with no gallops. No murmurs ABDOMEN: Soft. Bowel sounds normal. No organomegaly. No abdominal bruits. Extremities: reveal no edema. No clubbing or cyanosis Bilateral lower extremities contractures and tenderness over the left hip and diffuse tenderness. Neurologically awake, alert, oriented x3. Bilateral lower extremities contr actures. Skin: No rash or skin lesions. Psychiatric: Coperative. Nonsuicidal - Labs CBC & Chem 7: 11/14/18 09:04 11/14/18 09:04 Labs: Abnormal Lab Results - Last 24 Hours (Table) 11/14/18 11/14/18 Range/Units 09:04 09:04 RBC 4.28 L (4.30-5.90) m/uL Hgb 12.8 L (13.0-17.5) gm/dL Hct 38.7 L (39.0-53.0) % BUN 23 H (9-20) mg/dL Glucose 101 H (74-99) mg/dL Assessment and Plan Assessment: Acute on chronic intractable back pain and left hip pain. Multiple sclerosis with spastic left hemiparesis/paraparesis. Prerenal azotemia. Recent removal of intrathecal baclofen pump at [facility]. Anxiety/depression Severe degenerative joint disease of the left hip Leg tremors History of migraine headache DVT prophylaxis with heparin subcu Plan: Patient has multiple complex medical problems. Continue with baclofen at current dose and Dilaudid IV as needed. Continue to follow closely. Pain management service, orthopedic surgery and neurology on board. Further recommendations based on the clinical course. Continue with laxatives and stool shortness as needed. DVT prophylaxis. Time with Patient: Greater than 30
[2018-11-15] MEDS: HYDROmorphone 0.5 MG/0.5 ML SYRINGE IVP PRN (02:52)
[2018-11-15] MEDS: BACLOFEN 10 MG TAB PO SCH ×3 (05:31→21:47)
[2018-11-15] MEDS: HYDROcodone/APAP 10-325MG 1 EACH TAB PO PRN ×3 (05:31→19:36)
[2018-11-15] MEDS: SERTRALINE 100 MG TAB PO SCH (05:36)
[2018-11-15] MEDS: PANTOPRAZOLE 40 MG TABLET PO SCH (08:15)
[2018-11-15] MEDS: CYANOCOBALAMIN 500 MCG TAB PO SCH (08:15)
[2018-11-15] MEDS: HEPARIN SODIUM,PORCINE 5,000 UNIT/ML 1 ML VIAL SQ SCH ×2 (08:15→21:47)
[2018-11-15] MEDS: MAGNESIUM OXIDE 400 MG TAB PO SCH ×2 (08:15→19:34)
[2018-11-15] MEDS: SENNOSIDES 8.6 MG TAB PO SCH ×2 (08:16→18:01)
[2018-11-15] MEDS: CHOLECALCIFEROL 1,000 UNIT TAB PO SCH (08:16)
[2018-11-15 09:09] LABS: African American GFR (CKD) >90 (>60 ml/min/1.73 sqM); Anion Gap 7 mmol/L; Basophils % (A) 0 %; Blood Urea Nitrogen 25 mg/dL (9-20); Calcium 9.9 mg/dL (8.4-10.2); Carbon Dioxide 32 mmol/L (22-30); Chloride 102 mmol/L (98-107); Eosinophils # (A) 0.1 k/uL (0-0.7); Eosinophils % (A) 1 %; Glucose 103 mg/dL (74-99); HCT 44.3 % (39.0-53.0); HGB 14.3 gm/dL (13.0-17.5); Lymphocytes # (A) 1.5 k/uL (1.0-4.8); Lymphocytes % (A) 20 %; MCH 29.8 pg (25.0-35.0); MCHC 32.4 g/dL (31.0-37.0); MCV 92.2 fL (80.0-100.0); Mean Platelet Volume 7.9; Monocytes # (A) 0.4 k/uL (0-1.0); Monocytes % (A) 6 %; Neutrophils # (A) 5.2 k/uL (1.3-7.7); Neutrophils % (A) 72 %; Platelet Count 278 k/uL (150-450); Potassium 4.4 mmol/L (3.5-5.1); RBC 4.81 m/uL (4.30-5.90); RDW 13.9 % (11.5-15.5); Sodium 141 mmol/L (137-145); WBC 7.2 k/uL (3.8-10.6)
[2018-11-15 12:06] VITALS: RESP 18
--- NOTE | 2018-11-16 01:20 | P.PN ---
Subjective Progress Note Date: 11/15/18 Principal diagnosis: Severe back pain, leg pain. Acute on chronic. Patient is a 63-year-old male with a known history of multiple sclerosis with spastic left hemiparesis, with recent removal of intrathecal baclofen pump and chronic left hip pain due to osteoarthritis and contractures came to ER with the complaints of severe left hip pain and weakness. Patient is being followed by neurology, orthopedic surgery and pain management service. 11/14/2018 Patient is still complaining of left hip pain and back pain and spasms. Patient is being continued on baclofen and Dilaudid IV. No complaints of chest pain or shortness of breath. Denied any abdominal pain. No nausea vomiting. Tolerating oral diet. No fever no chills. Improving slowly. All other review of systems negative except the above. 11 15 2018 Patient says that he is feeling better today. Left hip pain is improving. Currently being continued on baclofen dose. Pain management service is planning for intra-articular injection possibly tomorrow. Otherwise patient denied a complaints of chest pain or shortness of breath. No other acute overnight issues. Active Medications Generic Name Dose Route Start Last Admin Trade Name Freq PRN Reason Stop Dose Admin Acetaminophen 650 mg 11/11/18 16:34 Tylenol Tab PO Q4H PRN MILD Pain Hydrocodone Bitart/Acetaminophen 1 each 11/11/18 16:34 11/14/18 15:21 [place] 10 PO 1 each Q6HR PRN Administration MODERATE Pain Alprazolam 0.25 mg 11/11/18 16:36 Xanax PO TID PRN Anxiety Baclofen 30 mg 11/11/18 22:00 11/13/18 22:27 Lioresal PO 30 mg DAILY@2200 MARLEEN Administration Baclofen 20 mg 11/12/18 06:00 11/14/18 15:21 Lioresal PO 20 mg BID@0600,1400 MARLEEN Administration Bisacodyl 10 mg 11/11/18 16:34 Dulcolax PO Q12H PRN Constipation Cholecalciferol 1,000 unit 11/12/18 08:00 11/14/18 07:52 Vitamin D3 (25 Mcg = 1000 Iu) PO 1,000 unit DAILY@0800 MARLEEN Administration Cyanocobalamin 1,000 mcg 11/12/18 08:00 11/14/18 07:52 Vitamin B-12 PO 1,000 mcg DAILY@0800 MARLEEN Administration Diazepam 5 mg 11/11/18 14:20 11/14/18 10:26 Valium IVP 5 mg Q6H PRN Administration Breakthrough Pain Heparin Sodium (Porcine) 5,000 unit 11/11/18 21:00 11/14/18 07:52 Heparin SQ 5,000 unit Q12HR MARLEEN Administration Hydromorphone HCl 0.5 mg 11/11/18 16:36 11/14/18 07:51 Dilaudid IVP 0.5 mg Q3HR PRN Administration Severe Pain Magnesium Oxide 400 mg 11/11/18 20:00 11/14/18 07:52 Mag-Ox PO 400 mg BID@0800,2000 [facility] Administration Modafinil 200 mg 11/11/18 16:34 Provigil PO DAILY PRN MS PAIN Ondansetron HCl 4 mg 11/11/18 14:20 Zofran IVP Q6HR PRN Nausea And Vomiting Pantoprazole Sodium 40 mg 11/12/18 07:30 11/14/18 07:52 Protonix PO 40 mg AC-BRKFST MARLEEN Administration Senna 8.6 mg 11/12/18 08:00 11/14/18 15:21 Senokot PO 8.6 mg BID@0800,1600 [facility] Administration Sertraline HCl 100 mg 11/12/18 06:00 11/14/18 06:20 Zoloft PO 100 mg DAILY@0600 [facility] Administration Temazepam 15 mg 11/11/18 16:36 11/13/18 22:28 Restoril PO 15 mg HS PRN Administration Insomnia Objective - Vital Signs Vital signs: Vital Signs Temp 97.7 F 11/15/18 19:22 Pulse 84 11/15/18 19:22 Resp 18 11/15/18 19:22 BP 110/69 11/15/18 19:22 Pulse Ox 99 11/15/18 19:22 Intake & Output 11/15/18 11/15/18 11/16/18 06:59 18:59 06:59 Intake Total 1310 Output Total 400 300 Balance 910 -300 Intake: Oral 1310 Output: Urine 400 300 Other: Voiding Method Urinal # Voids 2 5 2 - Exam PHYSICAL EXAMINATION: Patient is lying in the bed comfortably, no acute distress, awake alert and orie nted.. HEENT: Normocephalic. Neck is supple. Pupils reactive. Nostrils clear. Oral cavity is moist. Ears reveal no drainage. Neck reveals no JVD, carotid bruits, or thyromegaly. CHEST EXAMINATION: Trachea is central. Symmetrical expansion. Bibasilar diminished air entry. Lung samson clear to auscultation and percussion. CARDIAC: Normal S1, S2 with no gallops. No murmurs ABDOMEN: Soft. Bowel sounds normal. No organomegaly. No abdominal bruits. Extremities: reveal no edema. No clubbing or cyanosis Bilateral lower extremities contractures and tenderness over the left hip and diffuse tenderness. Neurologically awake, alert, oriented x3. Bilateral lower extremities contractures. Skin: No rash or skin lesions. Psychiatric: Coperative. Nonsuicidal - Labs CBC & Chem 7: 11/15/18 07:54 11/15/18 07:54 Labs: Abnormal Lab Results - Last 24 Hours (Table) 11/15/18 Range/Units 07:54 Carbon Dioxide 32 H (22-30) mmol/L BUN 25 H (9-20) mg/dL Glucose 103 H (74-99) mg/dL Assessment and Plan Assessment: Acute on chronic intractable back pain and left hip pain. Multiple sclerosis with spastic left hemiparesis/paraparesis. Prerenal azotemia. Recent removal of intrathecal baclofen pump at [facility]. Anxiety/depression Severe degenerative joint disease of the left hip Leg tremors History of migraine headache DVT prophylaxis with heparin subcu Plan: Patient has multiple complex medical problems. Continue with baclofen at current dose and Dilaudid IV as needed. Continue to follow closely. Pain management service, orthopedic surgery and neurology on board. Further recommendations based on the clinical course. Continue with laxatives and stool shortness as needed. DVT prophylaxis. Time with Patient: Greater than 30
[2018-11-16] MEDS: HYDROcodone/APAP 10-325MG 1 EACH TAB PO PRN ×2 (02:52→13:57)
[2018-11-16] MEDS: SERTRALINE 100 MG TAB PO SCH (05:33)
[2018-11-16] MEDS: BACLOFEN 10 MG TAB PO SCH ×2 (05:33→13:54)
[2018-11-16 09:37] LABS: Basophils % (A) 0 %; Eosinophils # (A) 0.1 k/uL (0-0.7); Eosinophils % (A) 1 %; HCT 41.8 % (39.0-53.0); HGB 13.3 gm/dL (13.0-17.5); Lymphocytes # (A) 1.5 k/uL (1.0-4.8); Lymphocytes % (A) 21 %; MCH 29.5 pg (25.0-35.0); MCHC 31.8 g/dL (31.0-37.0); MCV 92.6 fL (80.0-100.0); Mean Platelet Volume 6.6; Monocytes # (A) 0.4 k/uL (0-1.0); Monocytes % (A) 5 %; Neutrophils # (A) 5.2 k/uL (1.3-7.7); Neutrophils % (A) 71 %; Platelet Count 268 k/uL (150-450); RBC 4.51 m/uL (4.30-5.90); WBC 7.4 k/uL (3.8-10.6)
[2018-11-16] MEDS ORDERED: LACTATED RINGERS 1,000 ML IV ONE (09:43)
[2018-11-16 09:53] LABS: African American GFR (CKD) >90 (>60 ml/min/1.73 sqM); Anion Gap 7 mmol/L; Blood Urea Nitrogen 35 mg/dL (9-20); Calcium 9.6 mg/dL (8.4-10.2); Carbon Dioxide 30 mmol/L (22-30); Chloride 105 mmol/L (98-107); Glucose 93 mg/dL (74-99); Potassium 4.7 mmol/L (3.5-5.1); Sodium 142 mmol/L (137-145)
[2018-11-16 11:38] VITALS: BP 101/56; PULSE 67; TEMP 96
[2018-11-16] MEDS: SENNOSIDES 8.6 MG TAB PO SCH (13:23)
[2018-11-16] MEDS: MAGNESIUM OXIDE 400 MG TAB PO SCH (13:23)
[2018-11-16] MEDS: CHOLECALCIFEROL 1,000 UNIT TAB PO SCH (13:23)
[2018-11-16] MEDS: CYANOCOBALAMIN 500 MCG TAB PO SCH (13:23)
[2018-11-16] MEDS: PANTOPRAZOLE 40 MG TABLET PO SCH (13:24)
--- NOTE | 2018-11-16 15:23 | P.DS ---
Providers Date of admission: 11/13/18 13:09 Expected date of discharge: 11/16/18 Attending physician: Judit Mckenzie Consults: 11/11/18 16:49 Consult Physician Routine Consulting Provider: Selvin Beltran Consult Reason/Comments: Left hip pain/Hx. of MS/contractures Do you want consulting provider notified?: Yes, Notify in am 11/12/18 15:40 Consult Physician Routine Consulting Provider: Neto Limon Consult Reason/Comments: MS/increased pain/contractures Do you want consulting provider notified?: Yes, Notify in am Primary care physician: [facility] Course: Final diagnosis Acute on chronic intractable back pain and left hip pain Multiple sclerosis with spastic left hemiparesis/paraparesis Prerenal azotemia Recent removal of intrathecal baclofen pump [facility] History of anxiety/depression Severe degenerative joint disease of the left hip Leg tremors History of migraine headaches Discharge disposition The patient is being discharged in a stable condition with guarded prognosis to [facility]. Time taken 30 minutes. Patient to continue pain management. Prescription printed for discharge. History of present illness This is a 63-year-old male with a known history of multiple sclerosis with spastic left hemiparesis, chronic left hip pain due to osteoarthritis, and contractures. Patient states that he is feeling better and ready for discharge. Patient did receive an intra-articular injection of the left hip this morning and has been doing well. Patient currently denies any shortness of breath, chest pain, or palpitations. Patient is afebrile at this time. Patient is currently stable. Patient is being discharged in a stable condition with guarded prognosis for further evaluation and treatment at the [facility]. On exam vital signs are stable. Cardio S1 and S2 are normal. Respiratory system is clear to auscultation. Abdomen is soft and non-tender. Nervous system is diffuse weakness with chronic contractures noted. Patient does use a brace. Please refer to the medication reconciliation sheet for a list of medications. Patient Condition at Discharge: Good Plan - Discharge Summary New Discharge Prescriptions: Continue Baclofen [Lioresal] 30 mg PO DAILY@2200 Acetaminophen Tab [Tylenol] 650 mg PO Q4H PRN PRN Reason: Pain Bisacodyl 10 mg PO Q12H PRN PRN Reason: Constipation Cholecalciferol [Vitamin D3 (25 Mcg = 1000 Iu)] 1,000 unit PO DAILY@0800 Cyanocobalamin (Vitamin B-12) [Vitamin B-12] 1,000 mcg PO DAILY@0800 Magnesium Oxide [Mag-Ox] 400 mg PO BID@0800,1999 Modafinil [Provigil] 200 mg PO DAILY PRN PRN Reason: MS PAIN Sennosides [Senna] 8.6 mg PO BID@0800,1600 Sertraline [Zoloft] 100 mg PO DAILY@0600 Baclofen [Lioresal] 20 mg PO BID@0600,1400 #6 tablet HYDROcodone/APAP 10-325MG [Henry 10-325] 1 tab PO Q6HR PRN #6 tab PRN Reason: Pain Discharge Medication List Baclofen [Lioresal] 30 mg PO DAILY@2200 08/08/15 [History] Acetaminophen Tab [Tylenol] 650 mg PO Q4H PRN 11/11/18 [History] Bisacodyl 10 mg PO Q12H PRN 11/11/18 [History] Cholecalciferol [Vitamin D3 (25 Mcg = 1000 Iu)] 1,000 unit PO DAILY@0800 11/11/18 [History] Cyanocobalamin (Vitamin B-12) [Vitamin B-12] 1,000 mcg PO DAILY@0800 11/11/18 [History] Magnesium Oxide [Mag-Ox] 400 mg PO BID@0800,2000 11/11/18 [History] Modafinil [Provigil] 200 mg PO DAILY PRN 11/11/18 [History] Sennosides [Senna] 8.6 mg PO BID@0800,1600 11/11/18 [History] Sertraline [Zoloft] 100 mg PO DAILY@0600 11/11/18 [History] Baclofen [Lioresal] 20 mg PO BID@0600,1400 #6 tablet 11/16/18 [Rx] HYDROcodone/APAP 10-325MG [Henry 10-325] 1 tab PO Q6HR PRN #6 tab 11/16/18 [Rx] Follow up Appointment(s)/Referral(s): Brendan aMgaña MD [Primary Care Provider] - 1-2 days Activity/Diet/Wound Care/Special Instructions: Activity as tolerated continue current diet Discharge Disposition: TRANSFER TO SNF/ECF
[2018-11-16] MEDS ORDERED: HEPARIN SODIUM,PORCINE 5,000 UNIT/ML 1 ML VIAL SQ SCH (21:00)
--- NOTE | 2018-11-17 11:24 | FL ---
EXAMINATION TYPE: FL guided pain mgmt statistic DATE OF EXAM: 11/16/2018 HISTORY: Flouroscopy time 8 seconds of fluoroscopy provided. IMPRESSION: 1. Fluoroscopy time.
--- NOTE | 2018-11-30 15:33 | P.PCN ---
Date of Procedure: 11/16/18 Procedure(s) Performed: Preoperative diagnoses = left hip joint osteoarthritis. Postoperative diagnoses= same Procedure= intra-articular left hip injection with fluoroscopy Anesthesia= local anesthetic with lidocaine 1% Procedure indication= patient with a history of severe hip pain secondary to o steoarthritis which is not responsive to the conservative treatment. Description of the procedure= patient was seen and identified in the preoperative holding area, risk and benefits , complications ,and alternatives of the procedure were discussed with the patient and patient agreed with the preceding, patient signed the consent and IV was started and vital signs were monitored throughout the procedure and it was stable. The patient was taken to the operating room and placed in supine position the left lateral hip area was prepped with chlorhexidine 2 and draped with the standard fashion, a needle was advanced through the skin and subcutaneous tissue from lateral to medial into the hip joint. After negative aspiration,.the solution of 4 cc lidocaine with 40 mg of Kenalog was injected. The patient tolerated the procedure well without any complications Complications= there was no acute complication identified. Disposition= patient was placed advanced supine position and transferred to recovery room in stable condition for observation and was discharged home after meeting discharge criteria, and discharge instruction was given.
== END 2018-11-16 16:55 | DRG 552 ==
LOC: EC 11:11 → 3NMEDONC 14:22 → OBSVTOIN 11-13 13:09
PROVIDERS: ADMIT Hospitalist; ATTEND Hospitalist
PROC: 3E0U33Z Introduction of Anti-inflammatory into Joints, Percutaneous Approach (ICD-10-PCS; 2018-11-16)
PROC: 3E0U3BZ Introduction of Anesthetic Agent into Joints, Percutaneous Approach (ICD-10-PCS; principal; 2018-11-16 11:30)
DX: M54.5 Low back pain (principal); G81.14 Spastic hemiplegia affecting left nondominant side; G82.20 Paraplegia, unspecified; M87.9 Osteonecrosis, unspecified; M16.12 Unilateral primary osteoarthritis, left hip; E86.0 Dehydration; F32.9 Major depressive disorder, single episode, unspecified; F41.9 Anxiety disorder, unspecified; G35 Multiple sclerosis; G47.00 Insomnia, unspecified; G89.4 Chronic pain syndrome; K59.00 Constipation, unspecified; M62.462 Contracture of muscle, left lower leg; M62.461 Contracture of muscle, right lower leg; R29.6 Repeated falls; Z79.899 Other long term (current) drug therapy; Z80.3 Family history of malignant neoplasm of breast; Z90.49 Acquired absence of other specified parts of digestive tract; Z91.81 History of falling; Z96.642 Presence of left artificial hip joint; Z99.3 Dependence on wheelchair; G43.909 Migraine, unspecified, not intractable, without status migrainosus; R39.2 Extrarenal uremia; R26.9 Unspecified abnormalities of gait and mobility; F40.240 Claustrophobia; R39.15 Urgency of urination
CPT/HCPCS: 20610; 36415; 71045; 73502; 80048; 80053; 81003; 83605; 83880; 84100; 84484; 85025; 85610; 85730; 93005; 94760; 96361; 96374; 96375; 96376; 99285

== ENCOUNTER 2018-11-28 17:16 | Emergency (ER) | payer MEDICARE, OTHER ==
[2018-11-28 17:30] VITALS: TEMP 98.5
[2018-11-28] MEDS ORDERED: HYDROmorphone 1 MG/ML 1 ML SYRINGE IM STA (17:44)
[2018-11-28] MEDS ORDERED: DIAZEPAM 5 MG/ML 2 ML INJ IM ONE (17:44)
--- NOTE | 2018-11-28 17:47 | ED ---
General Adult HPI - General Chief complaint: Extremity Problem,Nontraumatic Stated complaint: Leg pain Time Seen by Provider: 11/28/18 17:30 Source: patient, RN notes reviewed Mode of arrival: ambulatory Limitations: no limitations - History of Present Illness Initial comments: This is a 63-year-old male who presents emergency Department with a history of MS and contraction in both legs. Patient states she's had a pain pump for quite a while and it was removed 2 weeks ago and since then his left leg appears more contracted to him and he isn't slightly more pain. Patient states his been no injury or trauma is been no increased redness or swelling he states it's the pain is had for quite a few years except for the fact that is now getting worse. Patient states this has happened in the past when the medications for pain is been reduced or eliminated. - Related Data Home Medications Medication Instructions Recorded Confirmed Baclofen [Lioresal] 30 mg PO DAILY@2200 08/07/11/28/18 Acetaminophen Tab [Tylenol] 650 mg PO Q4H PRN 11/11/18 11/28/18 Bisacodyl 10 mg PO Q12H PRN 11/11/18 11/28/18 Cholecalciferol [Vitamin D3 (25 1,000 unit PO DAILY@0800 11/11/18 11/28/18 Mcg = 1000 Iu)] Cyanocobalamin (Vitamin B-12) 1,000 mcg PO DAILY@0800 11/11/18 11/28/18 [Vitamin B-12] Magnesium Oxide [Mag-Ox] 400 mg PO BID@0800,2000 11/11/18 11/28/18 Modafinil [Provigil] 200 mg PO DAILY PRN 11/11/18 11/28/18 Sennosides [Senna] 8.6 mg PO BID@0800,1600 11/11/18 11/28/18 Sertraline [Zoloft] 100 mg PO DAILY@0600 11/11/18 11/28/18 Baclofen [Lioresal] 10 mg PO Q8H PRN 11/28/18 11/28/18 HYDROcodone/APAP 10-325MG [[place] 1 tab PO Q4H PRN 11/28/18 11/28/18 10-325] Ondansetron [Zofran] 4 mg PO Q6H PRN 11/28/18 11/28/18 Polyethylene Glycol 3350 [Miralax] 17 gram PO DAILY PRN 11/28/18 11/28/18 tiZANidine HCL 4 mg PO Q6H PRN 11/28/18 11/28/18 Previous Rx's Medication Instructions Recorded Baclofen [Lioresal] 20 mg PO BID@0600,1400 #6 tablet 11/16/18 Allergies Allergy/AdvReac Type Severity Reaction Status Date / Time No Known Allergies Allergy Verified 11/28/18 18:13 Review of Systems ROS Statement: Those systems with pertinent positive or pertinent negative responses have been documented in the HPI. ROS Other: All systems not noted in ROS Statement are negative. Past Medical History Past Medical History: No Reported History, Neurologic Disorder Additional Past Medical History / Comment(s): Patient diagnosed with MS 2008. Falls(most recently 11/04/2018). Arthritis left hip. Leg tremors. Bilateral LE contractures. migraines in past. Hx. of past bedsore between buttocks-since healed. History of Any Multi-Drug Resistant Organisms: None Reported Past Surgical History: Appendectomy, Back Surgery, Orthopedic Surgery Additional Past Surgical History / Comment(s): pain pump removed about 2 weeks ago 10/2018. lt knee meniscus repair. back sx plate/screws, nose severed off when knife grinder flew into face-had sx to repair Past Anesthesia/Blood Transfusion Reactions: No Reported Reaction Additional Past Anesthesia/Blood Transfusion Reaction / Comment(s): clausterphobia Past Psychological History: Depression Smoking Status: Never smoker Past Alcohol Use History: None Reported Past Drug Use History: None Reported, Marijuana - Past Family History Mother Family Medical History: Cancer, Dementia Additional Family Medical History / Comment(s): breast cancer Father Additional Family Medical History / Comment(s): after anuerysm sx General Exam - General Exam Comments Initial Comments: GENERAL: Patient is well-developed and well-nourished. Patient is nontoxic and well- hydrated and is in mild distress. ENT: Moist mucous membranes. EYES: The sclera were anicteric and conjunctiva were pink and moist. Extraocular movements were intact and pupils were equal round and reactive to light. Eyelids were unremarkable. PULMONARY: Unlabored respirations. Good breath sounds bilaterally. No audible rales rhonchi or wheezing was noted. CARDIOVASCULAR: There is a regular rate and rhythm without any murmurs gallops or rubs. ABDOMEN: Soft and nontender with normal bowel sounds. SKIN: Skin is clear with no lesions or rashes and otherwise unremarkable. NEUROLOGIC: Patient is alert and oriented x3. Cranial nerves II through XII are grossly intact. MUSCULOSKELETAL: Both legs are contracted however the left leg is more contracted than the right patient's legs are not swollen there is no areas of erythema patient states there in the same position they normally are with slightly more flexion of the left leg. LYMPHATICS: No significant lymphadenopathy is noted PSYCHIATRIC: Normal psychiatric evaluation. Limitations: no limitations Course Vital Signs 11/28/18 17:28 Temperature 98.5 F Pulse Rate 69 Respiratory 18 Rate Blood Pressure 131/85 O2 Sat by Pulse 95 Oximetry Medical Decision Making - Medical Decision Making Patient received Valium and Dilaudid. I went back into the room to reevaluate the patient he was doing considerably better and his legs were slightly more straight than the were previously. Patient agreed that he would follow-up with his primary medical care doctor. Disposition Clinical Impression: Chronic leg pain Disposition: HOME SELF-CARE Instructions (If sedation given, give patient instructions): Leg Pain (ED) Is patient prescribed a controlled substance at d/c from ED?: No Referrals: John Nolan MD [Primary Care Provider] - 1-2 days Time of Disposition: 20:19
[2018-11-28 20:49] VITALS: BP 124/90; PULSE 70; RESP 16
== END 2018-11-28 21:20 | disposition home or self-care (01) ==
LOC: EC 17:16 → EEVIPCON 17:16 → EC 21:20
DX: G89.29 Other chronic pain (principal); M79.605 Pain in left leg; M62.461 Contracture of muscle, right lower leg; M62.462 Contracture of muscle, left lower leg; G35 Multiple sclerosis; F32.9 Major depressive disorder, single episode, unspecified; Z79.899 Other long term (current) drug therapy
CPT/HCPCS: 99283; 96372 ×2; J3360; J1170

== ENCOUNTER 2023-05-12 13:43 | Inpatient (IN) | payer MEDICARE, OTHER ==
[2023-05-12] MEDS ORDERED: SODIUM CHLORIDE 0.9% 1,000 ML IV ONE (13:56)
--- NOTE | 2023-05-12 14:00 | ED ---
General Adult HPI - General Chief complaint: Altered Mental Status Stated complaint: Altered Mental Status Time Seen by Provider: 05/12/23 13:48 Source: patient, EMS, RN notes reviewed, old records reviewed Mode of arrival: EMS Limitations: altered mental status - History of Present Illness Initial comments: 68 old male presenting with increased lethargy, dark urine and sacral decubitus ulcer. Patient presented from care home for evaluation. Apparently is less alert than baseline. He is bedbound and had previous CVA with residual left- sided hemiplegia. No reported fever. Patient does have PEG tube and Cassidy catheter. According to paramedics he is not currently using PEG tube and is eating by mouth. - Related Data Home Medications Medication Instructions Recorded Confirmed Cyanocobalamin (Vitamin B-12) 1,000 mcg PO DAILY 11/11/18 05/12/23 [Vitamin B-12] bisacodyL [Bisacodyl] 10 mg PO Q12H PRN 11/11/18 05/12/23 Baclofen [Lioresal] 10 mg PO Q8H PRN 11/28/18 05/12/23 HYDROcodone/APAP 10-325MG [[place] 1 tab PO Q6H 11/28/18 05/12/23 10-325] polyethylene glycoL 3350 [Miralax] 17 gram PO DAILY PRN 11/28/18 05/12/23 tiZANidine HCL 4 mg PO Q6H PRN 11/28/18 05/12/23 Ascorbic Acid [Vitamin C] 500 mg PO DAILY 05/12/23 05/12/23 Baclofen [Lioresal] 20 mg PO TID@0500,1300,2100 05/12/23 05/12/23 Cholecalciferol [Vitamin D3 (25 25 mcg PO DAILY 05/12/23 05/12/23 Mcg = 1000 Iu)] Doxazosin [Cardura] 1 mg PO HS 05/12/23 05/12/23 Famotidine [Pepcid] 20 mg PO BID 05/12/23 05/12/23 Menthol [Biofreeze] 1 applic TOPICAL Q8H PRN 05/12/23 05/12/23 Multivitamins, Thera [Multivitamin 1 tab PO HS 05/12/23 05/12/23 (formulary)] Prostat 30 ml PO BID 05/12/23 05/12/23 guaiFENesin [guaiFENesin Oral 200 mg PO TID PRN 05/12/23 05/12/23 Solution] Allergies Allergy/AdvReac Type Severity Reaction Status Date / Time No Known Allergies Allergy Verified 05/12/23 15:03 Review of Systems ROS Statement: Those systems with pertinent positive or pertinent negative responses have been documented in the HPI. ROS Other: All systems not noted in ROS Statement are negative. Past Medical History Past Medical History: No Reported History, Neurologic Disorder Additional Past Medical History / Comment(s): Patient diagnosed with MS 2009. Falls(most recently 11/04/2018). Arthritis left hip. Leg tremors. Bilateral LE contractures. migraines in past. Hx. of past bedsore between buttocks-since healed. History of Any Multi-Drug Resistant Organisms: None Reported Past Surgical History: Appendectomy, Back Surgery, Orthopedic Surgery Additional Past Surgical History / Comment(s): pain pump removed about 2 weeks ago 10/2018. lt knee meniscus repair. back sx plate/screws, nose severed off when centerless grinder flew into face-had sx to repair Past Anesthesia/Blood Transfusion Reactions: No Reported Reaction Additional Past Anesthesia/Blood Transfusion Reaction / Comment(s): clausterphobia Past Psychological History: Depression Past Alcohol Use History: None Reported Past Drug Use History: None Reported, Marijuana - Past Family History Mother Family Medical History: Cancer, Dementia Additional Family Medical History / Comment(s): breast cancer Father Additional Family Medical History / Comment(s): after anuerysm sx General Exam Limitations: altered mental status General appearance: alert, in no apparent distress Head exam: Present: atraumatic, normocephalic Eye exam: Present: normal appearance, PERRL ENT exam: Present: normal exam Neck exam: Present: normal inspection. Absent: tenderness, meningismus Respiratory exam: Present: normal lung sounds bilaterally. Absent: respiratory distress, wheezes Cardiovascular Exam: Present: regular rate, normal rhythm GI/Abdominal exam: Present: soft, distended. Absent: tenderness, guarding Back exam: Present: other (stage 4 sacral decubitus ulcer) Neurological exam: Present: alert Skin exam: Present: warm Course Vital Signs 05/12/23 05/12/23 13:49 17:19 Temperature 98.4 F Pulse Rate 96 98 Respiratory 20 20 Rate Blood Pressure 96/59 99/60 Medical Decision Making - Medical Decision Making Was pt. sent in by a medical professional or institution (SHANNAN Laugerre, COSTUMED CHARACTER, urgent care, hospital, or care home...) When possible be specific @ -No Did you speak to anyone other than the patient for history (EMS, parent, family, police, friend...)? What history was obtained from this source @ -[Patient's and daughter. Did you review nursing and triage notes (agree or disagree)? Why? @ -I reviewed and agree with nursing and triage notes Were old charts reviewed (outside hosp., previous admission, EMS record, old EKG, old radiological studies, urgent care reports/EKG's, care home records)? Report findings @ -No old charts were reviewed Differential Diagnosis (chest pain, altered mental status, abdominal pain women, abdominal pain men, vaginal bleeding, weakness, fever, dyspnea, syncope, headache, dizziness, GI bleed, back pain, seizure, CVA, palpatations, mental health, musculoskeletal)? @ Differential Altered Mental Status: Hypoglycemia, DKA, hypercapnia, ETOH, overdose, CO poisoning, trauma, myxedema coma, HTN encephalopathy, infection, encephalitis, psychosis, intercranial hemorrhage, hepatic encephalopathy, meningitis, CVA, this is not meant to be an all-inclusive list EKG interpreted by me (3pts min.). @ -Sinus rhythm rate of 93, RI interval 138, QRS duration 90, QTC [address] segment elevation. X-rays interpreted by me (1pt min.). @ Chest x-ray showed right lower lobe infiltrate versus effusion CT interpreted by me (1pt min.). @ -None done U/S interpreted by me (1pt. min.). @ -None done What testing was considered but not performed or refused? (CT, X-rays, U/S, labs)? Why? @ -None What meds were considered but not given or refused? Why? @ -None Did you discuss the management of the patient with other professionals (professionals i.e. SHANNAN Laguerre, COSTUMED CHARACTER, lab, RT, psych nurse, social sciences professor, forestry biology specialist, teacher, air antisubmarine officer, nurse case management)? Give summary @ -No Was smoking cessation discussed for >3mins.? @ -No Was critical care preformed (if so, how long)? @ -No Were there social determinants of health that impacted care today? How? (Homelessness, low income, unemployed, alcoholism, drug addiction, transportation, low edu. Level, literacy, decrease access to med. care, senior living, rehab)? @ -No Was there de-escalation of care discussed even if they declined (Discuss DNR or withdrawal of care, Hospice)? DNR status @Only currently having discussions with hospice, final decision is not yet been made What co-morbidities impacted this encounter? (DM, HTN, Smoking, COPD, CAD, Cancer, CVA, ARF, Chemo, Hep., AIDS, mental health diagnosis, sleep apnea, morbid obesity)? @ -CVA, bedbound, debility Was patient admitted / discharged? Hospital course, mention meds given and route, prescriptions, significant lab abnormalities, going to OR and other pertinent info. @ 68-year-old male presenting with increased lethargy, concern for infection. Patient has significantly elevated white blood cell count at 20. He does have indwelling Cassidy catheter as well as a large sacral decubitus ulcer. His ulcer appears irritated but not infected at this time. Patient will be covered with broad-spectrum antibiotics including ceftriaxone and vancomycin. He will be admitted for IV hydration and IV antibiotics. Chest x-ray showed possibility of right lower lobe consolidation versus effusion.Multiple potential sources of infection including UTI, ulcer and pneumonia. Case discussed with Dr. Blount. Undiagnosed new problem with uncertain prognosis? @ -No Drug Therapy requiring intensive monitoring for toxicity (Heparin, Nitro, Insulin, Cardizem)? @ -No Were any procedures done? @ -No Diagnosis/symptom? @ -Sepsis, dehydration, pneumonia Acute, or Chronic, or Acute on Chronic? @acute Uncomplicated (without systemic symptoms) or Complicated (systemic symptoms)? @ complicated Side effects of treatment? @ -No Exacerbation, Progression, or Severe Exacerbation? @ -No Poses a threat to life or bodily function? How? (Chest pain, USA, RI, pneumonia, PE, COPD, DKA, ARF, appy, cholecystitis, CVA, Diverticulitis, Homicidal, Suicidal, threat to staff... and all critical care pts) @ -yes, sepsis - Lab Data Result diagrams: 05/12/23 14:44 05/12/23 14:44 Lab Results 01/04/24 01/04/24 01/04/24 Range/Units 14:44 14:44 14:44 WBC 20.3 H (3.8-10.6) k/uL RBC 3.93 L (4.30-5.90) m/uL Hgb 11.9 L (13.0-17.5) gm/dL Hct 36.6 L (39.0-53.0) % MCV 93.0 (80.0-100.0) fL MCH 30.2 (25.0-35.0) pg MCHC 32.5 (31.0-37.0) g/dL RDW 14.8 (11.5-15.5) % Plt Count 194 (150-450) k/uL MPV 7.9 Neutrophils % (Manual) 97 % Lymphocytes % (Manual) 1 % Monocytes % (Manual) 1 % Eosinophils % (Manual) 1 % Neutrophils # (Manual) 19.69 H (1.3-7.7) k/uL Lymphocytes # (Manual) 0.20 L (1.0-4.8) k/uL Monocytes # (Manual) 0.20 (0-1.0) k/uL Eosinophils # (Manual) 0.20 (0-0.7) k/uL Nucleated RBCs 0 (0-0) /100 WBC Manual Slide Review Performed PT 10.7 (10.0-12.5) sec INR 1.0 (<1.2) APTT 27.8 (22.0-30.0) sec Sodium 139 (137-145) mmol/L Potassium 5.0 (3.5-5.1) mmol/L Chloride 104 (98-107) mmol/L Carbon Dioxide 24 (22-30) mmol/L Anion Gap 11 mmol/L BUN 52 H (9-20) mg/dL Creatinine 1.37 H (0.66-1.25) mg/dL Est GFR (CKD-EPI)AfAm 62 (>60 ml/min/1.73 sqM) Est GFR (CKD-EPI)NonAf 53 (>60 ml/min/1.73 sqM) Glucose 101 H (74-99) mg/dL Plasma Lactic Acid Aung (0.7-2.0) mmol/L Calcium 8.9 (8.4-10.2) mg/dL Total Bilirubin 0.5 (0.2-1.3) mg/dL AST 26 (17-59) U/L ALT 18 (4-49) U/L Alkaline Phosphatase 94 (38-126) U/L Total Protein 6.2 L (6.3-8.2) g/dL Albumin 3.1 L (3.5-5.0) g/dL Influenza Type A (PCR) (Not Detectd) Influenza Type B (PCR) (Not Detectd) RSV (PCR) (Not Detectd) SARS-CoV-2 (PCR) (Not Detectd) 05/12/23 05/12/23 Range/Units 14:44 14:44 WBC (3.8-10.6) k/uL RBC (4.30-5.90) m/uL Hgb (13.0-17.5) gm/dL Hct (39.0-53.0) % MCV (80.0-100.0) fL MCH (25.0-35.0) pg MCHC (31.0-37.0) g/dL RDW (11.5-15.5) % Plt Count (150-450) k/uL MPV Neutrophils % (Manual) % Lymphocytes % (Manual) % Monocytes % (Manual) % Eosinophils % (Manual) % Neutrophils # (Manual) (1.3-7.7) k/uL Lymphocytes # (Manual) (1.0-4.8) k/uL Monocytes # (Manual) (0-1.0) k/uL Eosinophils # (Manual) (0-0.7) k/uL Nucleated RBCs (0-0) /100 WBC Manual Slide Review PT (10.0-12.5) sec INR (<1.2) APTT (22.0-30.0) sec Sodium (137-145) mmol/L Potassium (3.5-5.1) mmol/L Chloride (98-107) mmol/L Carbon Dioxide (22-30) mmol/L Anion Gap mmol/L BUN (9-20) mg/dL Creatinine (0.66-1.25) mg/dL Est GFR (CKD-EPI)AfAm (>60 ml/min/1.73 sqM) Est GFR (CKD-EPI)NonAf (>60 ml/min/1.73 sqM) Glucose (74-99) mg/dL Plasma Lactic Acid Aung 2.1 H* (0.7-2.0) mmol/L Calcium (8.4-10.2) mg/dL Total Bilirubin (0.2-1.3) mg/dL AST (17-59) U/L ALT (4-49) U/L Alkaline Phosphatase (38-126) U/L Total Protein (6.3-8.2) g/dL Albumin (3.5-5.0) g/dL Influenza Type A (PCR) Not Detected (Not Detectd) Influenza Type B (PCR) Not Detected (Not Detectd) RSV (PCR) Not Detected (Not Detectd) SARS-CoV-2 (PCR) Not Detected (Not Detectd) Disposition Clinical Impression: Delirium due to general medical condition, Sepsis Disposition: ADMITTED IP TO THIS HOSP Condition: Stable Is patient prescribed a controlled substance at d/c from ED?: No Referrals: Dheeraj Alex DO [Primary Care Provider] - 1-2 days Time of Disposition: 18:12
--- NOTE | 2023-05-12 15:23 | XR ---
EXAMINATION TYPE: XR chest 1V DATE OF EXAM: 05/12/2023 COMPARISON: 11/11/2018 INDICATION: Altered mental status TECHNIQUE: Single frontal view of the chest is obtained semiupright position. FINDINGS: The heart size is normal. The pulmonary vasculature is normal. There shift of the mediastinum towards the right. Consider right lower lobe atelectasis. Subpulmonic effusion may be present. Follow up exams are recommended. IMPRESSION: 1. Diminished aeration of the right lung. Correlate for atelectasis and/or effusion. Follow-up is rec ommended.
[2023-05-12] MEDS ORDERED: MORPHINE SULFATE 4 MG/ML SYRINGE IVP STA (16:07)
[2023-05-12 16:49] LABS: HCT 36.6 % (39.0-53.0); HGB 11.9 gm/dL (13.0-17.5); MCH 30.2 pg (25.0-35.0); MCHC 32.5 g/dL (31.0-37.0); Mean Platelet Volume 7.9; Platelet Count 194 k/uL (150-450); RBC 3.93 m/uL (4.30-5.90); RDW 14.8 % (11.5-15.5); WBC 20.3 k/uL (3.8-10.6)
[2023-05-12 17:02] LABS: Partial Thromboplastin Time 27.8 sec (22.0-30.0); Prothrombin Time 10.7 sec (10.0-12.5)
[2023-05-12 17:05] LABS: ALT 18 U/L (4-49); AST 26 U/L (17-59); African American GFR (CKD) 62 (>60 ml/min/1.73 sqM); Albumin 3.1 g/dL (3.5-5.0); Alkaline Phosphatase 94 U/L (38-126); Anion Gap 11 mmol/L; Blood Urea Nitrogen 52 mg/dL (9-20); Calcium 8.9 mg/dL (8.4-10.2); Carbon Dioxide 24 mmol/L (22-30); Chloride 104 mmol/L (98-107); Glucose 101 mg/dL (74-99); Non-African American GFR(CKD) 53 (>60 ml/min/1.73 sqM); Sodium 139 mmol/L (137-145); Total Bilirubin 0.5 mg/dL (0.2-1.3); Total Protein 6.2 g/dL (6.3-8.2)
[2023-05-12 17:25] LABS: Neutrophils # (M) 19.69 k/uL (1.3-7.7); Neutrophils % (M) 97 %; Nucleated Red Blood Cells 0 /100 WBC (0-0); Total Cells Counted 100
[2023-05-12] MEDS ORDERED: VANCOMYCIN IV PER PHARMACY 1 EACH MISC MISCELLANE PRN (17:43)
[2023-05-12] MEDS ORDERED: SODIUM CHLORIDE 0.9% 500 ML 500 ML IV ONE (17:47)
[2023-05-12] MEDS ORDERED: NALOXONE 0.4 MG/ML 1 ML VIAL IV PRN (18:08)
[2023-05-12] MEDS ORDERED: MORPHINE SULFATE 4 MG/ML SYRINGE IV PRN (18:08)
[2023-05-12 18:30] LABS: Appearance,Urine Cloudy (Clear); Bacteria,Urine Few /hpf; Bilirubin,Urine Negative (Negative); Blood,Urine Large (Negative); Budding Yeast,Urine Few /hpf; Color,Urine Yellow; Glucose,Urine (UA) Negative (Negative); Ketones,Urine Negative (Negative); Leukocyte Esterase,Urine Large (Negative); Mucus,Urine Rare /hpf; Nitrite,Urine Positive (Negative); PH, Urine 5.5 (5.0-8.0); Protein,Urine 1+ (Negative); RBC,Urine >182 /hpf (0-5); Squamous Epithelial Cell,Urine 1 /hpf (0-4); Urobilinogen,Urine <2.0 mg/dL (<2.0); WBC,Urine >182 /hpf (0-5)
[2023-05-12] MEDS ORDERED: VANCOMYCIN 1,500 MG in SODIUM CHLORIDE 0.9% 500 ML 500 ML IVPB ONE (18:30)
[2023-05-12] MEDS: SODIUM CHLORIDE 0.9% 1,000 ML IV SCH (20:16)
[2023-05-12] MEDS ORDERED: bisacodyL 5 MG TABLET.DR PO PRN (20:35)
[2023-05-12] MEDS ORDERED: polyethylene glycoL 3350 17 GM POWD.PACK PO PRN (20:35)
--- NOTE | 2023-05-12 20:37 | P.HPIM ---
History of Present Illness H&P Date: 05/12/23 Chief Complaint: Lethargic, dark urine This is a 68-year-old patient who arrived with EMS from the custodial. Patient had a MLS with bilateral lower extremity contracture. Does have a PEG tube and a Cassidy catheter. Patient has not been using PEG tube and is able to eat by mouth. Patient only able to answer questions very slowly. This found to be more lethargic. Urine darker in color. Also has a sacral decubitus ulcer. Patient is only able to answer questions very slowly. Review of systems cannot be done as patient speaks very few words. Physical examination: VITAL SIGNS: 98.4, 96, 20, 96/59, 96% on room air GENERAL: BMI 25.9, reclining bed lethargic. EYES: Pupils equal. Conjunctiva normal. HEENT: External appearance of nose and ears normal, oral cavity dry mucous membranes. NECK: JVD not raised; masses not palpable. HEART: First and second heart sounds are normal; no edema. LUNGS:[ Respiratory rate normal; increased breath sounds. ABDOMEN: Soft, nontender, liver spleen not palpable, no masses palpable. PEG tube PSYCH: Only answering occasional question.l mood is low. MUSCULOSKELETAL:No Clubbing/cyanosis;muscles-grossly intact NEUROLOGICAL: [Cranial nerves grossly intact; no facial asymmetry, weakness of the left arm and leg. Slight movement. Some contracture. LYMPHATICS: No lymph nodes palpable in the axilla and neck INVESTIGATIONS, reviewed in the clinical context: 05/12/2023: White count 20.3 hemoglobin 11.9 platelets 194 sodium 139 potassium 5 BUN 52 creatinine 1.37 lactic acid 2.1 UA: Large blood. Large leukoesterase WBC 1 each to Influenza type A, type B, RSV, COVID-19: Not detected Assessment and plan: -Acute UTI secondary to Cassidy catheter chronic IV ceftriaxone -Sacral decubitus ulcer Consent wound care -Chronic medical debility, patient on ambulatory -Chronic multiple sclerosis bilateral lower extremity contractures, left arm weakness -Patient has a PEG tube. But able to eat by mouth Feeding with assistance -Chronic Cassidy catheter for chronic bladder dysfunction Past Medical History Past Medical History: No Reported History, Neurologic Disorder Additional Past Medical History / Comment(s): Patient diagnosed with MS 2008. Falls(most recently 11/04/2018). Arthritis left hip. Leg tremors. Bilateral LE contractures. migraines in past. Hx. of past bedsore between buttocks-since healed. History of Any Multi-Drug Resistant Organisms: None Reported Past Surgical History: Appendectomy, Back Surgery, Orthopedic Surgery Additional Past Surgical History / Comment(s): pain pump removed about 2 weeks ago 10/2018. lt knee meniscus repair. back sx plate/screws, nose severed off when glaze grinder flew into face-had sx to repair Past Anesthesia/Blood Transfusion Reactions: No Reported Reaction Additional Past Anesthesia/Blood Transfusion Reaction / Comment(s): clausterphobia Past Psychological History: Depression Past Alcohol Use History: None Reported Past Drug Use History: None Reported, Marijuana - Past Family History Mother Family Medical History: Cancer, Dementia Additional Family Medical History / Comment(s): breast cancer Father Additional Family Medical History / Comment(s): after anuerysm sx Medications and Allergies Home Medications Medication Instructions Recorded Confirmed Type Cyanocobalamin (Vitamin B-12) 1,000 mcg PO DAILY 11/11/18 05/12/23 History [Vitamin B-12] bisacodyL [Bisacodyl] 10 mg PO Q12H PRN 11/11/18 05/12/23 History Baclofen [Lioresal] 10 mg PO Q8H PRN 11/28/18 05/12/23 History HYDROcodone/APAP 10-325MG [[place] 1 tab PO Q6H 11/28/18 05/12/23 History 10-325] polyethylene glycoL 3350 [Miralax] 17 gram PO DAILY PRN 11/28/18 05/12/23 History tiZANidine HCL 4 mg PO Q6H PRN 11/28/18 05/12/23 History Ascorbic Acid [Vitamin C] 500 mg PO DAILY 05/12/23 05/12/23 History Baclofen [Lioresal] 20 mg PO TID@0500,1300,2100 05/12/23 05/12/23 History Cholecalciferol [Vitamin D3 (25 25 mcg PO DAILY 05/12/23 05/12/23 History Mcg = 1000 Iu)] Doxazosin [Cardura] 1 mg PO HS 05/12/23 05/12/23 History Famotidine [Pepcid] 20 mg PO BID 05/12/23 05/12/23 History Menthol [Biofreeze] 1 applic TOPICAL Q8H PRN 05/12/23 05/12/23 History Multivitamins, Thera [Multivitamin 1 tab PO HS 05/12/23 05/12/23 History (formulary)] Prostat 30 ml PO BID 05/12/23 05/12/23 History guaiFENesin [guaiFENesin Oral 200 mg PO TID PRN 05/12/23 05/12/23 History Solution] Allergies Allergy/AdvReac Type Severity Reaction Status Date / Time No Known Allergies Allergy Verified 05/12/23 15:03 Physical Exam Vitals: Vital Signs Temp Pulse Resp BP Pulse Ox 05/12/23 20:17 107 H 16 103/72 95 05/12/23 18:17 91 18 114/66 96 05/12/23 17:19 98 20 99/60 05/12/23 13:49 98.4 F 96 20 96/59 Intake and Output 05/12/23 05/12/23 05/12/23 06:59 14:59 22:59 Other: Weight 81.783 kg Results CBC & Chem 7: 05/12/23 14:44 05/12/23 14:44 Labs: Abnormal Lab Results - Last 24 Hours (Table) 05/12/23 05/12/23 05/12/23 Range/Units 14:44 14:44 14:44 WBC 20.3 H (3.8-10.6) k/uL RBC 3.93 L (4.30-5.90) m/uL Hgb 11.9 L (13.0-17.5) gm/dL Hct 36.6 L (39.0-53.0) % Neutrophils # (Manual) 19.69 H (1.3-7.7) k/uL Lymphocytes # (Manual) 0.20 L (1.0-4.8) k/uL BUN 52 H (9-20) mg/dL Creatinine 1.37 H (0.66-1.25) mg/dL Glucose 101 H (74-99) mg/dL Plasma Lactic Acid Aung (0.7-2.0) mmol/L Total Protein 6.2 L (6.3-8.2) g/dL Albumin 3.1 L (3.5-5.0) g/dL Urine Protein 1+ H (Negative) Urine Blood Large H (Negative) Ur Leukocyte Esterase Large H (Negative) Urine RBC >182 H (0-5) /hpf Urine WBC >182 H (0-5) /hpf Urine WBC Clumps Many H (None) /hpf Urine Bacteria Few H (None) /hpf Urine Mucus Rare H (None) /hpf Urine Yeast (Budding) Few H (None) /hpf 05/12/23 Range/Units 14:44 WBC (3.8-10.6) k/uL RBC (4.30-5.90) m/uL Hgb (13.0-17.5) gm/dL Hct (39.0-53.0) % Neutrophils # (Manual) (1.3-7.7) k/uL Lymphocytes # (Manual) (1.0-4.8) k/uL BUN (9-20) mg/dL Creatinine (0.66-1.25) mg/dL Glucose (74-99) mg/dL Plasma Lactic Acid Aung 2.1 H* (0.7-2.0) mmol/L Total Protein (6.3-8.2) g/dL Albumin (3.5-5.0) g/dL Urine Protein (Negative) Urine Blood (Negative) Ur Leukocyte Esterase (Negative) Urine RBC (0-5) /hpf Urine WBC (0-5) /hpf Urine WBC Clumps (None) /hpf Urine Bacteria (None) /hpf Urine Mucus (None) /hpf Urine Yeast (Budding) (None) /hpf
[2023-05-12] MEDS: BACLOFEN 10 MG TAB PO SCH (22:15)
[2023-05-12] MEDS: MULTIVITAMINS, THERA 1 EACH TAB PO SCH (22:16)
[2023-05-12] MEDS: FAMOTIDINE 20 MG TAB PO SCH (22:16)
[2023-05-12] MEDS: HYDROcodone/APAP 10-325MG 1 EACH TAB PO SCH (22:16)
[2023-05-12] MEDS: DOXAZOSIN 1 MG TAB PO SCH (22:17)
[2023-05-12] MEDS: ACETAMINOPHEN TAB 325 MG TAB PO PRN (23:21)
[2023-05-13] MEDS: HYDROcodone/APAP 10-325MG 1 EACH TAB PO SCH ×4 (05:47→21:15)
[2023-05-13] MEDS: SODIUM CHLORIDE 0.9% 1,000 ML IV SCH ×2 (06:29→21:51)
[2023-05-13] MEDS: BACLOFEN 10 MG TAB PO SCH ×3 (06:46→21:15)
[2023-05-13 07:31] LABS: Basophils % (A) 0 %; Eosinophils # (A) 0.2 k/uL (0-0.7); Eosinophils % (A) 1 %; HCT 35.1 % (39.0-53.0); Hypochromasia Slight; Lymphocytes # (A) 0.7 k/uL (1.0-4.8); Lymphocytes % (A) 6 %; MCH 29.3 pg (25.0-35.0); MCHC 31.4 g/dL (31.0-37.0); MCV 93.5 fL (80.0-100.0); Mean Platelet Volume 8.2; Monocytes # (A) 0.4 k/uL (0-1.0); Monocytes % (A) 3 %; Neutrophils # (A) 10.5 k/uL (1.3-7.7); Neutrophils % (A) 88 %; Platelet Count 169 k/uL (150-450); RBC 3.75 m/uL (4.30-5.90); RDW 14.6 % (11.5-15.5); WBC 11.9 k/uL (3.8-10.6)
[2023-05-13 07:43] LABS: African American GFR (CKD) >90 (>60 ml/min/1.73 sqM); Anion Gap 8 mmol/L; Blood Urea Nitrogen 36 mg/dL (9-20); Carbon Dioxide 23 mmol/L (22-30); Chloride 111 mmol/L (98-107); Glucose 90 mg/dL (74-99); Non-African American GFR(CKD) >90 (>60 ml/min/1.73 sqM); Potassium 4.1 mmol/L (3.5-5.1); Sodium 142 mmol/L (137-145)
[2023-05-13] MEDS ORDERED: VANCOMYCIN 1,500 MG in SODIUM CHLORIDE 0.9% 500 ML 500 ML IVPB SCH (08:00)
[2023-05-13] MEDS: CHOLECALCIFEROL 25 MCG (1000 IU) TABLET PO SCH (10:08)
[2023-05-13] MEDS: FAMOTIDINE 20 MG TAB PO SCH ×2 (10:08→21:14)
[2023-05-13] MEDS: ASCORBIC ACID 500 MG TAB PO SCH (10:08)
[2023-05-13] MEDS: CYANOCOBALAMIN 500 MCG TAB PO SCH (10:11)
[2023-05-13] MEDS: ACETAMINOPHEN TAB 325 MG TAB PO PRN (11:55)
--- NOTE | 2023-05-13 16:19 | P.PN ---
Progress Note - Text Progress Note Date: 05/13/23 Chief Complaint: Lethargic, dark urine This is a 68-year-old patient who arrived with EMS from the custodial. Patient had a MLS with bilateral lower extremity contracture. Does have a PEG tube and a Cassidy catheter. Patient has not been using PEG tube and is able to eat by mouth. Patient only able to answer questions very slowly. This found to be more lethargic. Urine darker in color. Also has a sacral decubitus ulcer. Patient is only able to answer questions very slowly. 05/13/2023: Patient admitted with acute UTI with delirium. On IV ceftriaxone. Doing better this morning. Did eat some food with assistance. Able to answer questions much better today. No fever Active Medications Acetaminophen (Acetaminophen Tab 325 Mg Tab) 650 mg PO Q6HR PRN PRN Reason: Mild Pain or Fever > 100.5 Last Admin: 05/13/23 11:55 Dose: 650 mg Hydrocodone Bitart/Acetaminophen (Hydrocodone/Apap 10-325mg 1 Each Tab) 1 each PO Q6H [facility] Last Admin: 05/13/23 13:53 Dose: 1 each Ascorbic Acid (Ascorbic Acid 500 Mg Tab) 500 mg PO DAILY [facility] Last Admin: 05/13/23 10:08 Dose: 500 mg Baclofen (Baclofen 10 Mg Tab) 10 mg PO Q8H PRN PRN Reason: Pain Baclofen (Baclofen 10 Mg Tab) 20 mg PO TID@0500,1300,2100 [facility] Last Admin: 05/13/23 13:52 Dose: 20 mg Bisacodyl (Bisacodyl 5 Mg Tablet.Dr) 10 mg PO Q12H PRN PRN Reason: Constipation Cholecalciferol (Cholecalciferol 25 Mcg (1000 Iu) Tablet) 25 mcg PO DAILY [facility] Last Admin: 05/13/23 10:08 Dose: 25 mcg Cyanocobalamin (Cyanocobalamin 500 Mcg Tab) 1,000 mcg PO DAILY [facility] Last Admin: 05/13/23 10:11 Dose: 1,000 mcg Doxazosin Mesylate (Doxazosin 1 Mg Tab) 1 mg PO HS [facility] Last Admin: 05/12/23 22:17 Dose: 1 mg Famotidine (Famotidine 20 Mg Tab) 20 mg PO BID [facility] Last Admin: 05/13/23 10:08 Dose: 20 mg Sodium Chloride (Saline 0.9%) 1,000 mls @ 75 mls/hr IV .[id number] [facility] Last Admin: 05/13/23 06:29 Dose: 75 mls/hr Ceftriaxone Sodium 1 gm/ (Sodium Chloride) 50 mls @ 100 mls/hr IVPB Q24HR [facility]; Protocol Last Admin: 05/13/23 10:11 Dose: 100 mls/hr Multivitamins (Multivitamins, Thera 1 Each Tab) 1 each PO HS [facility] Last Admin: 05/12/23 22:16 Dose: 1 each Naloxone HCl (Naloxone 0.4 Mg/Ml 1 Ml Vial) 0.2 mg IV Q2M PRN PRN Reason: Opioid Reversal Polyethylene Glycol (Polyethylene Glycol 3350 17 Gm Powd.Pack) 17 gm PO DAILY PRN PRN Reason: Constipation Tizanidine HCl (Tizanidine 4 Mg Tab) 4 mg PO Q6H PRN PRN Reason: Pain Physical examination: VITAL SIGNS: T-max 100.2 last night, 85, 16, 88/60, 91% on room air GENERAL: Reclining in bed, more awake today. EYES: Pupils equal. Conjunctiva normal. HEENT: External appearance of nose and ears normal, oral cavity dry mucous membranes. NECK: JVD not raised; masses not palpable. HEART: First and second heart sounds are normal; no edema. LUNGS:[ Respiratory rate normal; increased breath sounds. ABDOMEN: Soft, nontender, liver spleen not palpable, no masses palpable. PEG tube PSYCH: More awake and answering questions much better today. MUSCULOSKELETAL:No Clubbing/cyanosis;muscles-grossly intact. Some contracture of the lower extremity. NEUROLOGICAL: [Cranial nerves grossly intact; no facial asymmetry, weakness of the left arm and leg. Slight movement. Some contracture. INVESTIGATIONS, reviewed in the clinical context: 05/13/2023: White count 11.9 hemoglobin 11 potassium 4.1 BUN 36 creatinine 0.7 05/12/2023: White count 20.3 hemoglobin 11.9 platelets 194 sodium 139 potassium 5 BUN 52 creatinine 1.37 lactic acid 2.1 UA: Large blood. Large leukoesterase WBC 1 each to Influenza type A, type B, RSV, COVID-19: Not detected Assessment and plan: -Acute UTI secondary to Cassidy catheter [chronic ) IV ceftriaxone -Acute delirium from UTI sepsis on presentation: Improving -Acute kidney injury secondary to ATN from sepsis-improving Admission creatinine was 1.37, today 0.7 -Sacral decubitus ulcer Follow with wound care -Chronic medical debility, patient on ambulatory -Chronic multiple sclerosis bilateral lower extremity contractures, left arm weakness -Patient has a PEG tube. But able to eat by mouth Feeding by mouth with assistance -Chronic Cassidy catheter for chronic bladder dysfunction -Full code Past Medical History Past Medical History: No Reported History, Neurologic Disorder Additional Past Medical History / Comment(s): Patient diagnosed with MS 2008. Falls(most recently 11/04/2018). Arthritis left hip. Leg tremors. Bilateral LE contractures. migraines in past. Hx. of past bedsore between buttocks-since healed. History of Any Multi-Drug Resistant Organisms: None Reported Past Surgical History: Appendectomy, Back Surgery, Orthopedic Surgery Additional Past Surgical History / Comment(s): pain pump removed about 2 weeks ago 10/2018. lt knee meniscus repair. back sx plate/screws, nose severed off when grinder set up operator jig flew into face-had sx to repair Past Anesthesia/Blood Transfusion Reactions: No Reported Reaction Additional Past Anesthesia/Blood Transfusion Reaction / Comment(s): clausterphobia Past Psychological History: Depression Past Alcohol Use History: None Reported Past Drug Use History: None Reported, Marijuana
[2023-05-13] MEDS: MULTIVITAMINS, THERA 1 EACH TAB PO SCH (21:14)
[2023-05-13] MEDS: DOXAZOSIN 1 MG TAB PO SCH (22:55)
[2023-05-14] MEDS: HYDROcodone/APAP 10-325MG 1 EACH TAB PO SCH ×4 (03:00→22:01)
[2023-05-14] MEDS: BACLOFEN 10 MG TAB PO SCH ×3 (04:59→22:02)
[2023-05-14] MEDS: FAMOTIDINE 20 MG TAB PO SCH ×2 (08:48→22:02)
[2023-05-14] MEDS: CHOLECALCIFEROL 25 MCG (1000 IU) TABLET PO SCH (08:48)
[2023-05-14] MEDS: ASCORBIC ACID 500 MG TAB PO SCH (08:48)
[2023-05-14] MEDS: CYANOCOBALAMIN 500 MCG TAB PO SCH (08:48)
[2023-05-14] MEDS ORDERED: VANCOMYCIN IV PER PHARMACY 1 EACH MISC MISCELLANE PRN (13:26)
--- NOTE | 2023-05-14 13:30 | P.PN ---
Progress Note - Text Progress Note Date: 05/14/23 Chief Complaint: Lethargic, dark urine This is a 68-year-old patient who arrived with EMS from the [facility]. Patient had a MLS with bilateral lower extremity contracture. Does have a PEG tube and a Cassidy catheter. Patient has not been using PEG tube and is able to eat by mouth. Patient only able to answer questions very slowly. This found to be more lethargic. Urine darker in color. Also has a sacral decubitus ulcer. Patient is only able to answer questions very slowly. 05/13/2023: Patient admitted with acute UTI with delirium. On IV ceftriaxone. Doing better this morning. Did eat some food with assistance. Able to answer questions much better today. No fever 05/14/2023: Laying in bed. Able to hold a skull conversation. Tolerating a diet. IV ceftriaxone. Blood cultures growing presumptive staph aureus. Repeat blood culture. IV vancomycin pharmacy dose. Consult ID. Active Medications Acetaminophen (Acetaminophen Tab 325 Mg Tab) 650 mg PO Q6HR PRN PRN Reason: Mild Pain or Fever > 100.5 Last Admin: 05/13/23 11:55 Dose: 650 mg Hydrocodone Bitart/Acetaminophen (Hydrocodone/Apap 10-325mg 1 Each Tab) 1 each PO Q6H [facility] Last Admin: 05/14/23 08:48 Dose: 1 each Ascorbic Acid (Ascorbic Acid 500 Mg Tab) 500 mg PO DAILY [facility] Last Admin: 05/14/23 08:48 Dose: 500 mg Baclofen (Baclofen 10 Mg Tab) 10 mg PO Q8H PRN PRN Reason: Pain Baclofen (Baclofen 10 Mg Tab) 20 mg PO TID@0500,1300,2100 [facility] Last Admin: 05/14/23 04:59 Dose: 20 mg Bisacodyl (Bisacodyl 5 Mg Tablet.Dr) 10 mg PO Q12H PRN PRN Reason: Constipation Cholecalciferol (Cholecalciferol 25 Mcg (1000 Iu) Tablet) 25 mcg PO DAILY [facility] Last Admin: 05/14/23 08:48 Dose: 25 mcg Cyanocobalamin (Cyanocobalamin 500 Mcg Tab) 1,000 mcg PO DAILY [facility] Last Admin: 05/14/23 08:48 Dose: 1,000 mcg Doxazosin Mesylate (Doxazosin 1 Mg Tab) 1 mg PO HS [facility] Last Admin: 05/13/23 22:55 Dose: 1 mg Famotidine (Famotidine 20 Mg Tab) 20 mg PO BID [facility] Last Admin: 05/14/23 08:48 Dose: 20 mg Sodium Chloride (Saline 0.9%) 1,000 mls @ 75 mls/hr IV .[id number] [facility] Last Admin: 05/13/23 21:51 Dose: Not Given Ceftriaxone Sodium 2 gm/ (Sodium Chloride) 50 mls @ 100 mls/hr IVPB Q24HR [facility] Last Admin: 05/14/23 08:48 Dose: 100 mls/hr Miscellaneous Information (Vancomycin Iv Per Pharmacy 1 Each Misc) 1 each MISCELLANE DIRECTED PRN; Protocol PRN Reason: Per Protocol Multivitamins (Multivitamins, Thera 1 Each Tab) 1 each PO HS [facility] Last Admin: 05/13/23 21:14 Dose: 1 each Naloxone HCl (Naloxone 0.4 Mg/Ml 1 Ml Vial) 0.2 mg IV Q2M PRN PRN Reason: Opioid Reversal Polyethylene Glycol (Polyethylene Glycol 3350 17 Gm Powd.Pack) 17 gm PO DAILY PRN PRN Reason: Constipation Tizanidine HCl (Tizanidine 4 Mg Tab) 4 mg PO Q6H PRN PRN Reason: Pain Physical examination: VITAL SIGNS: 98.2, 71, 17, 111/70, 98% on 3 L GENERAL: Reclining in bed, awake EYES: Pupils equal. Conjunctiva normal. HEENT: External appearance of nose and ears normal, oral cavity dry mucous membranes. NECK: JVD not raised; masses not palpable. HEART: First and second heart sounds are normal; no edema. LUNGS:[ Respiratory rate normal; increased breath sounds. ABDOMEN: Soft, nontender, liver spleen not palpable, no masses palpable. PEG tube PSYCH: He would answer questions appropriately MUSCULOSKELETAL:No Clubbing/cyanosis;muscles-grossly intact. Some contracture of the bilateral lower extremity. NEUROLOGICAL: [Cranial nerves grossly intact; no facial asymmetry, weakness of the left arm and leg. Slight movement. Some contracture. INVESTIGATIONS, reviewed in the clinical context: Blood culture [May 12] presumptive staph aureus Urine culture [May 12] gram-negative bacilli 05/13/2023: White count 11.9 hemoglobin 11 potassium 4.1 BUN 36 creatinine 0.7 05/12/2023: White count 20.3 hemoglobin 11.9 platelets 194 sodium 139 potassium 5 BUN 52 creatinine 1.37 lactic acid 2.1 UA: Large blood. Large leukoesterase WBC 1 each to Influenza type A, type B, RSV, COVID-19: Not detected Assessment and plan: -Acute UTI secondary to Cassidy catheter [chronic ), from gram-negative bacilli IV ceftriaxone -Sepsis with positive blood cultures growing staph aureus [May 12] Add IV vancomycin. Consult ID. Repeat blood culture -Acute delirium from UTI sepsis on presentation: Improving -Acute kidney injury secondary to ATN from sepsis-improving Admission creatinine was 1.37, today 0.7 -Sacral decubitus ulcer Follow with wound care -Chronic medical debility, patient on ambulatory -Chronic multiple sclerosis bilateral lower extremity contractures, left arm weakness -Patient has a PEG tube. But able to eat by mouth Feeding by mouth with assistance -Chronic Cassidy catheter for chronic bladder dysfunction -Full code Add IV vancomycin. ID consulted. Repeat blood culture. Past Medical History Past Medical History: No Reported History, Neurologic Disorder Additional Past Medical History / Comment(s): Patient diagnosed with MS 2009. Falls(most recently 11/04/2018). Arthritis left hip. Leg tremors. Bilateral LE contractures. migraines in past. Hx. of past bedsore between buttocks-since healed. History of Any Multi-Drug Resistant Organisms: None Reported Past Surgical History: Appendectomy, Back Surgery, Orthopedic Surgery Additional Past Surgical History / Comment(s): pain pump removed about 2 weeks ago 10/2018. lt knee meniscus repair. back sx plate/screws, nose severed off when precision lens grinder flew into face-had sx to repair Past Anesthesia/Blood Transfusion Reactions: No Reported Reaction Additional Past Anesthesia/Blood Transfusion Reaction / Comment(s): clausterphobia Past Psychological History: Depression Past Alcohol Use History: None Reported Past Drug Use History: None Reported, Marijuana
[2023-05-14] MEDS: ACETAMINOPHEN TAB 325 MG TAB PO PRN (14:03)
[2023-05-14] MEDS: SODIUM CHLORIDE 0.9% 1,000 ML IV SCH ×2 (14:53→15:16)
[2023-05-14] MEDS: VANCOMYCIN 1,500 MG in SODIUM CHLORIDE 0.9% 500 ML 500 ML IVPB SCH (15:09)
[2023-05-14] MEDS: tiZANidine 4 MG TAB PO PRN (19:23)
[2023-05-14] MEDS: MULTIVITAMINS, THERA 1 EACH TAB PO SCH (22:01)
[2023-05-14] MEDS: DOXAZOSIN 1 MG TAB PO SCH (22:02)
[2023-05-14] MEDS: BACLOFEN 10 MG TAB PO PRN (23:46)
[2023-05-15] MEDS: tiZANidine 4 MG TAB PO PRN (01:58)
[2023-05-15] MEDS: VANCOMYCIN 1,500 MG in SODIUM CHLORIDE 0.9% 500 ML 500 ML IVPB SCH ×2 (01:59→14:44)
[2023-05-15] MEDS: HYDROcodone/APAP 10-325MG 1 EACH TAB PO SCH ×4 (01:59→20:55)
[2023-05-15] MEDS: BACLOFEN 10 MG TAB PO SCH ×3 (05:25→22:18)
[2023-05-15 06:51] LABS: Basophils % (A) 0 %; Eosinophils # (A) 0.2 k/uL (0-0.7); Eosinophils % (A) 3 %; HCT 32.3 % (39.0-53.0); HGB 10.3 gm/dL (13.0-17.5); Lymphocytes # (A) 1.4 k/uL (1.0-4.8); Lymphocytes % (A) 22 %; MCH 29.3 pg (25.0-35.0); MCHC 31.8 g/dL (31.0-37.0); MCV 92.1 fL (80.0-100.0); Mean Platelet Volume 8.4; Monocytes # (A) 0.3 k/uL (0-1.0); Monocytes % (A) 5 %; Neutrophils # (A) 4.2 k/uL (1.3-7.7); Neutrophils % (A) 67 %; Platelet Count 179 k/uL (150-450); RDW 14.2 % (11.5-15.5); WBC 6.3 k/uL (3.8-10.6)
[2023-05-15 07:00] LABS: African American GFR (CKD) >90 (>60 ml/min/1.73 sqM); Anion Gap 7 mmol/L; Blood Urea Nitrogen 13 mg/dL (9-20); Calcium 8.7 mg/dL (8.4-10.2); Carbon Dioxide 24 mmol/L (22-30); Chloride 107 mmol/L (98-107); Glucose 84 mg/dL (74-99); Non-African American GFR(CKD) >90 (>60 ml/min/1.73 sqM); Potassium 3.9 mmol/L (3.5-5.1); Sodium 138 mmol/L (137-145)
--- NOTE | 2023-05-15 07:34 | P.CONS ---
History of Present Illness - Reason for Consult Consult date: 05/14/23 - History of Present Illness Patient is a 68-year-old male past medical history of MS, CVA with residual left-sided hemiplegia patient is currently bedbound with bilateral lower extremity contracture and did have a sacral pressure ulcer senior care resident patient was sent to the ER at [facility] on 05/12/2023 for increasing lethargy and dark urine and the sacral pressure ulcer apparently patient was noticed to be less alert than the baseline, with the symptoms the patient was sent to the ER on presentation to the hospital patient was afebrile subsequently did have low-grade fever 100.2 degrees warm hide patient has been afebrile since then patient was not tachycardic or hypotensive mild hypoxemia requiring 2 L nasal cannula oxygen patient did have white count of 20,000 on admission with a creatinine 1.37 he did have a positive UA influenza RSV COVID testing was negative patient did have a chest x-ray diminished aeration of the right lung correlate for atelectasis or effusion patient was started on Rocephin blood cultures came back positive with Staph aureus vancomycin was added infectious disease was consulted for further management of antibiotic therapy patient is currently awake but not a very good historian Specifically denies any headache chest pain shortness of breath or cough patient did have a large sacral pressure ulcer with some slough tissue but no foul- smelling drainage reported by the nursing staff Past Medical History Past Medical History: No Reported History, Neurologic Disorder Additional Past Medical History / Comment(s): Patient diagnosed with MS 2008. Falls(most recently 11/04/2018). Arthritis left hip. Leg tremors. Bilateral LE contractures. migraines in past. Hx. of past bedsore between buttocks-since healed. History of Any Multi-Drug Resistant Organisms: None Reported Past Surgical History: Appendectomy, Back Surgery, Orthopedic Surgery Additional Past Surgical History / Comment(s): pain pump removed about 2 weeks ago 10/2018. lt knee meniscus repair. back sx plate/screws, nose severed off when metal grinder flew into face-had sx to repair Past Anesthesia/Blood Transfusion Reactions: No Reported Reaction Additional Past Anesthesia/Blood Transfusion Reaction / Comm: clausterphobia Past Psychological History: Depression Past Alcohol Use History: None Reported Past Drug Use History: None Reported, Marijuana - Past Family History Mother Family Medical History: Cancer, Dementia Additional Family Medical History / Comment(s): breast cancer Father Additional Family Medical History / Comment(s): after anuerysm sx Medications and Allergies Home Medications Medication Instructions Recorded Confirmed Type Cyanocobalamin (Vitamin B-12) 1,000 mcg PO DAILY 11/11/18 05/12/23 History [Vitamin B-12] bisacodyL [Bisacodyl] 10 mg PO Q12H PRN 11/11/18 05/12/23 History Baclofen [Lioresal] 10 mg PO Q8H PRN 11/28/18 05/12/23 History HYDROcodone/APAP 10-325MG [[place] 1 tab PO Q6H 11/28/18 05/12/23 History 10-325] polyethylene glycoL 3350 [Miralax] 17 gram PO DAILY PRN 11/28/18 05/12/23 History tiZANidine HCL 4 mg PO Q6H PRN 11/28/18 05/12/23 History Ascorbic Acid [Vitamin C] 500 mg PO DAILY 05/12/23 05/12/23 History Baclofen [Lioresal] 20 mg PO TID@0500,1300,2100 05/12/23 05/12/23 History Cholecalciferol [Vitamin D3 (25 25 mcg PO DAILY 05/12/23 05/12/23 History Mcg = 1000 Iu)] Doxazosin [Cardura] 1 mg PO HS 05/12/23 05/12/23 History Famotidine [Pepcid] 20 mg PO BID 05/12/23 05/12/23 History Menthol [Biofreeze] 1 applic TOPICAL Q8H PRN 05/12/23 05/12/23 History Multivitamins, Thera [Multivitamin 1 tab PO HS 05/12/23 05/12/23 History (formulary)] Prostat 30 ml PO BID 05/12/23 05/12/23 History guaiFENesin [guaiFENesin Oral 200 mg PO TID PRN 05/12/23 05/12/23 History Solution] Allergies Allergy/AdvReac Type Severity Reaction Status Date / Time No Known Allergies Allergy Verified 05/12/23 15:03 Physical Exam Vitals: Vital Signs Temp Pulse Pulse Resp BP BP Pulse Ox 05/14/23 13:45 98.5 F 77 17 107/68 98 05/14/23 07:25 98.2 F 71 17 111/70 98 05/14/23 01:34 98.6 F 84 19 106/68 97 05/13/23 20:35 98.4 F 84 18 116/71 96 05/13/23 20:19 82 18 117/75 98 Intake and Output 05/14/23 05/14/23 05/14/23 06:59 14:59 22:59 Output Total 1800 1400 560 Balance -1800 -1400 -560 Output: Urine 1800 1400 560 Other: Voiding Method Indwelling Catheter # Bowel Movements 1 Weight 81.783 kg Results CBC & Chem 7: 05/15/23 06:06 05/15/23 06:06 Labs: Microbiology - Last 24 Hours (Table) 05/12/23 14:44 Urine Culture - Preliminary Urine,Voided Gram Neg Bacilli 05/12/23 14:44 Blood Culture Gram Stain - Preliminary Blood Blood Culture - Preliminary Presumptive Staph aureus 05/12/23 14:44 Blood Culture Gram Stain - Preliminary Blood Assessment and Plan Plan: 1patient was in the hospital with sepsis in this patient who did have a fever elevated white count source is multifactorial in this patient with lactic acidosis UTI with urine currently showing gram-negative bacilli possibly ceftriaxone sensitive pathogen. 2patient also have a Staph aureus bacteremia source questionably infected sacral pressure ulcer. 3blood cultures will be repeated document clearance of his bacteremia. 4we will check inflammatory markers and CT of the pelvis/sacrum to make sure no evidence of any osteomyelitis 5vancomycin pharmacy to dose target trough of 15 while watching kidney function and Vanco trough closely We will follow on clinical condition and cultures to further adjust medication if needed Thank you for this consultation we will follow the patient along with you Dictation was produced using [employer] dictation software. please excuse any grammatical, word or spelling errors. Time with Patient: Greater than 30
--- NOTE | 2023-05-15 09:06 | CT ---
EXAMINATION TYPE: CT sacrum wo con DATE OF EXAM: 05/15/2023 COMPARISON: HISTORY: 68-year-old male pain, ?OSTEOMYELITIS, SACRAL ULCER TECHNIQUE: Contiguous axial scanning of the sacrum without IV contrast. Coronal and sagittal reconstr uctions performed. CT DLP: 939.1 mGycm Automated exposure control for dose reduction was used. FINDINGS: There is a deep, nearly full-thickness echo decubitus ulcer and chronic-appearing bone loss at the sa crococcygeal junction and some cortical erosion just to the left of midline, sagittal image 74. Most of the bone loss again appears chronic. No abnormal fluid collection is seen. There is end-stage degenerative change left hip with chronic healed, impacted femoral neck fracture d eformity. Previous lumbosacral fusion hardware. Moderate stool distal colon and rectum. Correlate to exclude constipation. No dilated small bowel loo ps are seen. A Cassidy catheter is in place. No abnormal fluid collection in the pelvis. IMPRESSION: 1. NEARLY FULL-THICKNESS SACRAL DECUBITUS ULCER WITH MOSTLY CHRONIC-APPEARING BONE LOSS AT THE SACROC OCCYGEAL JUNCTION. HOWEVER, THERE IS SOME CORTICAL EROSION HERE JUST TO THE LEFT OF MIDLINE, SAGITTAL IMAGE 74, UNDERLYING THE SOFT TISSUE ULCER. UNABLE TO EXCLUDE A CONTIGUOUS OSTEOMYELITIS. NO PRIORS AVAILABLE FOR COMPARISON PURPOSES. 2. IMPACTED, HEALED LEFT FEMORAL NECK FRACTURE DEFORMITY WITH END-STAGE POSTTRAUMATIC LEFT HIP OA. 3. CORRELATE TO EXCLUDE CONSTIPATION.
[2023-05-15] MEDS: ASCORBIC ACID 500 MG TAB PO SCH (10:04)
[2023-05-15] MEDS: CYANOCOBALAMIN 500 MCG TAB PO SCH (10:04)
[2023-05-15] MEDS: FAMOTIDINE 20 MG TAB PO SCH ×2 (10:04→20:55)
[2023-05-15] MEDS: CHOLECALCIFEROL 25 MCG (1000 IU) TABLET PO SCH (10:04)
[2023-05-15] MEDS: SODIUM CHLORIDE 0.9% 1,000 ML IV SCH (12:46)
--- NOTE | 2023-05-15 13:34 | P.PN ---
Progress Note - Text Progress Note Date: 05/15/23 Chief Complaint: Lethargic, dark urine This is a 68-year-old patient who [facility]. Patient had a MLS with bilateral lower extremity contracture. Does have a PEG tube and a Cassidy catheter. Patient has not been using PEG tube and is able to eat by mouth. Patient only able to answer questions very slowly. This found to be more lethargic. Urine darker in color. Also has a sacral decubitus ulcer. Patient is only able to answer questions very slowly. 05/13/2023: Patient admitted with acute UTI with delirium. On IV ceftriaxone. Doing better this morning. Did eat some food with assistance. Able to answer questions much better today. No fever 05/14/2023: Laying in bed. Able to hold a conversation. Tolerating a diet. IV ceftriaxone. Blood cultures growing presumptive staph aureus. Repeat blood culture. IV vancomycin pharmacy dose. Consult ID. Generally 11/26/2023: Blood cultures currently showing cardiomegaly is negative staph and presumptive staph aureus. Urine culture is finalized. No fever. Eating well. Blood cultures pending from the 6. Sacral decubital computed tomography scan changes appear to be predominantly chronic. Active Medications Acetaminophen (Acetaminophen Tab 325 Mg Tab) 650 mg PO Q6HR PRN PRN Reason: Mild Pain or Fever > 100.5 Last Admin: 05/14/23 14:03 Dose: 650 mg Hydrocodone Bitart/Acetaminophen (Hydrocodone/Apap 10-325mg 1 Each Tab) 1 each PO Q6H [facility] Last Admin: 05/15/23 10:04 Dose: 1 each Ascorbic Acid (Ascorbic Acid 500 Mg Tab) 500 mg PO DAILY [facility] Last Admin: 05/15/23 10:04 Dose: 500 mg Baclofen (Baclofen 10 Mg Tab) 10 mg PO Q8H PRN PRN Reason: Pain Last Admin: 05/14/23 23:46 Dose: 10 mg Baclofen (Baclofen 10 Mg Tab) 20 mg PO TID@0500,1300,2100 [facility] Last Admin: 05/15/23 12:32 Dose: 20 mg Bisacodyl (Bisacodyl 5 Mg Tablet.) 10 mg PO Q12H PRN PRN Reason: Constipation Cholecalciferol (Cholecalciferol 25 Mcg (1000 Iu) Tablet) 25 mcg PO DAILY [facility] Last Admin: 05/15/23 10:04 Dose: 25 mcg Cyanocobalamin (Cyanocobalamin 500 Mcg Tab) 1,000 mcg PO DAILY [facility] Last Admin: 05/15/23 10:04 Dose: 1,000 mcg Doxazosin Mesylate (Doxazosin 1 Mg Tab) 1 mg PO [facility] Last Admin: 05/14/23 22:02 Dose: 1 mg Famotidine (Famotidine 20 Mg Tab) 20 mg PO BID [facility] Last Admin: 05/15/23 10:04 Dose: 20 mg Sodium Chloride (Saline 0.9%) 1,000 mls @ 75 mls/hr IV .[id number] [facility] Last Admin: 05/15/23 12:46 Dose: 75 mls/hr Ceftriaxone Sodium 2 gm/ (Sodium Chloride) 50 mls @ 100 mls/hr IVPB Q24HR [facility] Last Admin: 05/15/23 10:03 Dose: 100 mls/hr Vancomycin HCl 1,500 mg/ (Sodium Chloride) 500 mls @ 167 mls/hr IVPB Q12H [facility] Last Admin: 05/15/23 01:59 Dose: 167 mls/hr Miscellaneous Information (Vancomycin Trough Due 1 Each Misc) 0 each MISCELLANE DIRECTED ONE Stop: 05/16/23 13:01 Multivitamins (Multivitamins, Thera 1 Each Tab) 1 each PO [facility] Last Admin: 05/14/23 22:01 Dose: 1 each Naloxone HCl (Naloxone 0.4 Mg/Ml 1 Ml Vial) 0.2 mg IV Q2M PRN PRN Reason: Opioid Reversal Polyethylene Glycol (Polyethylene Glycol 3350 17 Gm Powd.Pack) 17 gm PO DAILY PRN PRN Reason: Constipation Tizanidine HCl (Tizanidine 4 Mg Tab) 4 mg PO Q6H PRN PRN Reason: Pain Last Admin: 05/15/23 01:58 Dose: 4 mg Physical examination: VITAL SIGNS: 97.9, 70, 17, 100/61, 95% on 3 L GENERAL: Reclining in bed, awake EYES: Pupils equal. Conjunctiva normal. HEENT: External appearance of nose and ears normal, oral cavity dry mucous membranes. NECK: JVD not raised; masses not palpable. HEART: First and second heart sounds are normal; no edema. LUNGS:[ Respiratory rate normal; increased breath sounds. ABDOMEN: Soft, nontender, liver spleen not palpable, no masses palpable. PEG tube PSYCH: answer questions appropriately MUSCULOSKELETAL:No Clubbing/cyanosis;muscles-grossly intact. Some contracture of the bilateral lower extremity. Sacral decubitus ulcers-see nursing note for details NEUROLOGICAL: [Cranial nerves grossly intact; no facial asymmetry, weakness of the left arm and leg. Slight movement. Some contracture. INVESTIGATIONS, reviewed in the clinical context: Computed tomography scan sacrum: Predominantly chronic changes. Question about acute osteomyelitis. 05/15/2023: White count 6.3 and globin 10.3 platelets 179 potassium 3.9. Procalcitonin 5.64 Blood culture [May 12] presumptive staph aureus, coag negative staph Urine culture [May 12] procidentia Stuartii, Proteus mirabilis 05/13/2023: White count 11.9 hemoglobin 11 potassium 4.1 BUN 36 creatinine 0.7 05/12/2023: White count 20.3 hemoglobin 11.9 platelets 194 sodium 139 potassium 5 BUN 52 creatinine 1.37 lactic acid 2.1 UA: Large blood. Large leukoesterase WBC 1 each to Influenza type A, type B, RSV, COVID-19: Not detected Assessment and plan: -Acute UTI secondary to Cassidy catheter [chronic ), from procidentia Stuartii, Proteus mirabilis IV ceftriaxone -Sepsis with positive blood cultures growing staph aureus [May 12] IV vancomycin. ID following. Repeat blood culture from May 14 pending. -Acute delirium from UTI sepsis on presentation: Improved -Acute kidney injury secondary to ATN from improved Admission creatinine was 1.37, today 0.7 -Sacral decubitus ulcer Follow with wound care -Chronic medical debility, patient on ambulatory -Chronic multiple sclerosis bilateral lower extremity contractures, left arm weakness -Patient has a PEG tube. But able to eat by mouth Feeding by mouth with assistance -Chronic Cassidy catheter for chronic bladder dysfunction -Full code Continue IV ceftriaxone IV vancomycin. Repeat blood cultures. Discussed with patient. Past Medical History Past Medical History: No Reported History, Neurologic Disorder Additional Past Medical History / Comment(s): Patient diagnosed with MS 2008. Falls(most recently 11/04/2018). Arthritis left hip. Leg tremors. Bilateral LE contractures. migraines in past. Hx. of past bedsore between buttocks-since healed. History of Any Multi-Drug Resistant Organisms: None Reported Past Surgical History: Appendectomy, Back Surgery, Orthopedic Surgery Additional Past Surgical History / Comment(s): pain pump removed about 2 weeks ago 10/2018. lt knee meniscus repair. back sx plate/screws, nose severed off when cast shell grinder flew into face-had sx to repair Past Anesthesia/Blood Transfusion Reactions: No Reported Reaction Additional Past Anesthesia/Blood Transfusion Reaction / Comment(s): clausterphobia Past Psychological History: Depression Past Alcohol Use History: None Reported Past Drug Use History: None Reported, Marijuana
[2023-05-15] MEDS: DOXAZOSIN 1 MG TAB PO SCH (20:55)
[2023-05-15] MEDS: MULTIVITAMINS, THERA 1 EACH TAB PO SCH (20:55)
[2023-05-16] MEDS: tiZANidine 4 MG TAB PO PRN (01:10)
[2023-05-16] MEDS: VANCOMYCIN 1,500 MG in SODIUM CHLORIDE 0.9% 500 ML 500 ML IVPB SCH (02:32)
[2023-05-16] MEDS: HYDROcodone/APAP 10-325MG 1 EACH TAB PO SCH ×4 (02:32→23:27)
[2023-05-16] MEDS: SODIUM CHLORIDE 0.9% 1,000 ML IV SCH ×2 (02:32→21:12)
[2023-05-16] MEDS: BACLOFEN 10 MG TAB PO SCH ×3 (05:07→21:07)
[2023-05-16 05:34] LABS: African American GFR (CKD) >90 (>60 ml/min/1.73 sqM); Non-African American GFR(CKD) >90 (>60 ml/min/1.73 sqM)
[2023-05-16] MEDS: CYANOCOBALAMIN 500 MCG TAB PO SCH (08:39)
[2023-05-16] MEDS: CHOLECALCIFEROL 25 MCG (1000 IU) TABLET PO SCH (08:39)
[2023-05-16] MEDS: ASCORBIC ACID 500 MG TAB PO SCH (08:39)
[2023-05-16] MEDS: FAMOTIDINE 20 MG TAB PO SCH ×2 (08:39→21:07)
[2023-05-16] MEDS ORDERED: VANCOMYCIN TROUGH DUE 1 EACH MISC MISCELLANE ONE (13:00)
--- NOTE | 2023-05-16 14:40 | P.PN ---
Progress Note - Text Progress Note Date: 05/16/23 Chief Complaint: Lethargic, dark urine This is a 68-year-old patient who arrived with EMS from the [facility]. Patient had a MLS with bilateral lower extremity contracture. Does have a PEG tube and a Cassidy catheter. Patient has not been using PEG tube and is able to eat by mouth. Patient only able to answer questions very slowly. This found to be more lethargic. Urine darker in color. Also has a sacral decubitus ulcer. Patient is only able to answer questions very slowly. 05/13/2023: Patient admitted with acute UTI with delirium. On IV ceftriaxone. Doing better this morning. Did eat some food with assistance. Able to answer questions much better today. No fever 05/14/2023: Laying in bed. Able to hold a conversation. Tolerating a diet. IV ceftriaxone. Blood cultures growing presumptive staph aureus. Repeat blood culture. IV vancomycin pharmacy dose. Consult ID. May 15: Blood cultures currently showing cardiomegaly is negative staph and presumptive staph aureus. Urine culture is finalized. No fever. Eating well. Blood cultures pending from the 6. Sacral decubital computed tomography scan changes appear to be predominantly chronic. 05/16/2023: Comfortable. Tolerating a diet. Discussed with ID. Patient probably will need IV antibiotics. Spoke to the patient's on the phone at length. In the [facility] the nurse at . the patient's about possible hospice. They've had a visit. I discussed with the the patient has done much better since admission. Tolerating a diet. Common eating. agrees. Once treatment to continue. He is quite pleased that the patient is doing well. At this point hospice will not be done. Does some questions about pain control. Will consult pain management. Also communicated with the director social service. Active Medications Acetaminophen (Acetaminophen Tab 325 Mg Tab) 650 mg PO Q6HR PRN PRN Reason: Mild Pain or Fever > 100.5 Last Admin: 05/14/23 14:03 Dose: 650 mg Hydrocodone Bitart/Acetaminophen (Hydrocodone/Apap 10-325mg 1 Each Tab) 1 each PO Q6H [facility] Last Admin: 05/16/23 08:39 Dose: 1 each Ascorbic Acid (Ascorbic Acid 500 Mg Tab) 500 mg PO DAILY [facility] Last Admin: 05/16/23 08:39 Dose: 500 mg Baclofen (Baclofen 10 Mg Tab) 10 mg PO Q8H PRN PRN Reason: Pain Last Admin: 05/14/23 23:46 Dose: 10 mg Baclofen (Baclofen 10 Mg Tab) 20 mg PO TID@0500,1300,2100 [facility] Last Admin: 05/16/23 12:28 Dose: 20 mg Bisacodyl (Bisacodyl 5 Mg Tablet.Dr) 10 mg PO Q12H PRN PRN Reason: Constipation Cholecalciferol (Cholecalciferol 25 Mcg (1000 Iu) Tablet) 25 mcg PO DAILY [facility] Last Admin: 05/16/23 08:39 Dose: 25 mcg Cyanocobalamin (Cyanocobalamin 500 Mcg Tab) 1,000 mcg PO DAILY [facility] Last Admin: 05/16/23 08:39 Dose: 1,000 mcg Doxazosin Mesylate (Doxazosin 1 Mg Tab) 1 mg PO [facility] Last Admin: 05/15/23 20:55 Dose: 1 mg Famotidine (Famotidine 20 Mg Tab) 20 mg PO BID [facility] Last Admin: 05/16/23 08:39 Dose: 20 mg Sodium Chloride (Saline 0.9%) 1,000 mls @ 20 mls/hr IV .Q24H [facility] Last Admin: 05/16/23 02:32 Dose: Not Given Ceftriaxone Sodium 2 gm/ (Sodium Chloride) 50 mls @ 100 mls/hr IVPB Q24HR [facility] Last Admin: 05/16/23 08:40 Dose: 100 mls/hr Vancomycin HCl 1,250 mg/ (Sodium Chloride) 250 mls @ 125 mls/hr IVPB Q12H [facility] Last Admin: 05/16/23 14:26 Dose: 125 mls/hr Multivitamins (Multivitamins, Thera 1 Each Tab) 1 each PO [facility] Last Admin: 05/15/23 20:55 Dose: 1 each Naloxone HCl (Naloxone 0.4 Mg/Ml 1 Ml Vial) 0.2 mg IV Q2M PRN PRN Reason: Opioid Reversal Polyethylene Glycol (Polyethylene Glycol 3350 17 Gm Powd.Pack) 17 gm PO DAILY PRN PRN Reason: Constipation Tizanidine HCl (Tizanidine 4 Mg Tab) 4 mg PO Q6H PRN PRN Reason: Pain Last Admin: 05/16/23 01:10 Dose: 4 mg Physical examination: VITAL SIGNS: 98.7, 73, 19, 128/67, 93% room air GENERAL: Reclining in bed, awake EYES: Pupils equal. Conjunctiva normal. HEENT: External appearance of nose and ears normal, oral cavity dry mucous membranes. NECK: JVD not raised; masses not palpable. HEART: First and second heart sounds are normal; no edema. LUNGS:[ Respiratory rate normal; increased breath sounds. ABDOMEN: Soft, nontender, liver spleen not palpable, no masses palpable. PEG tube PSYCH: answer questions appropriately MUSCULOSKELETAL:No Clubbing/cyanosis;muscles-grossly intact. Some contracture of the bilateral lower extremity. Sacral decubitus ulcers-see nursing note for details NEUROLOGICAL: [Cranial nerves grossly intact; no facial asymmetry, weakness of the left arm and leg. Slight movement. Some contracture. INVESTIGATIONS, reviewed in the clinical context: Computed tomography scan sacrum: Predominantly chronic changes. Question about acute osteomyelitis. 05/15/2023: White count 6.3 and globin 10.3 platelets 179 potassium 3.9. Procalcitonin 5.64 Blood culture [May 12] Staphylococcus epidermidis. Proteus mirabilis. Staphylococcus aureus. Urine culture [May 12] procidentia Stuartii, Proteus mirabilis 05/13/2023: White count 11.9 hemoglobin 11 potassium 4.1 BUN 36 creatinine 0.7 05/12/2023: White count 20.3 hemoglobin 11.9 platelets 194 sodium 139 potassium 5 BUN 52 creatinine 1.37 lactic acid 2.1 UA: Large blood. Large leukoesterase WBC 1 each to Influenza type A, type B, RSV, COVID-19: Not detected Assessment and plan: -Acute UTI secondary to Cassidy catheter [chronic ), from procidentia Stuartii, Proteus mirabilis IV ceftriaxone -Sepsis with positive blood cultures growing staph aureus, Staphylococcus epidermidis. [May 12] IV vancomycin. ID following. Repeat blood culture from May 14 pending. -Acute delirium from UTI sepsis on presentation: Improved -Acute kidney injury secondary to ATN from improved Admission creatinine was 1.37, today 0.7 -Sacral decubitus ulcer Follow with wound care -Chronic pain from underlying medical conditions. [place] schedule. Consult pain management -Chronic medical debility, patient on ambulatory -Chronic multiple sclerosis bilateral lower extremity contractures, left arm weakness -Patient has a PEG tube. But able to eat by mouth Feeding by mouth with assistance -Chronic Cassidy catheter for chronic bladder dysfunction -Full code No hospice as discussion with the . Consult pain management team. IV antibiotics per ID. Past Medical History Past Medical History: No Reported History, Neurologic Disorder Additional Past Medical History / Comment(s): Patient diagnosed with MS 2008. Falls(most recently 11/04/2018). Arthritis left hip. Leg tremors. Bilateral LE contractures. migraines in past. Hx. of past bedsore between buttocks-since healed. History of Any Multi-Drug Resistant Organisms: None Reported Past Surgical History: Appendectomy, Back Surgery, Orthopedic Surgery Additional Past Surgical History / Comment(s): pain pump removed about 2 weeks ago 10/2018. lt knee meniscus repair. back sx plate/screws, nose severed off when cutter grinder operator flew into face-had sx to repair Past Anesthesia/Blood Transfusion Reactions: No Reported Reaction Additional Past Anesthesia/Blood Transfusion Reaction / Comment(s): clausterphobia Past Psychological History: Depression Past Alcohol Use History: None Reported Past Drug Use History: None Reported, Marijuana
[2023-05-16] MEDS ORDERED: VANCOMYCIN 1,250 MG in SODIUM CHLORIDE 0.9% 250 ML IVPB SCH (15:00)
[2023-05-16] MEDS: ACETAMINOPHEN TAB 325 MG TAB PO PRN (18:51)
[2023-05-16] MEDS: BACLOFEN 10 MG TAB PO PRN (18:51)
[2023-05-16] MEDS: MULTIVITAMINS, THERA 1 EACH TAB PO SCH (21:07)
[2023-05-16] MEDS: DOXAZOSIN 1 MG TAB PO SCH (21:07)
--- NOTE | 2023-05-16 22:47 | P.PN ---
Subjective Progress Note Date: 05/15/23 Principal diagnosis: Reason for follow-up with UTI stage IV sacral pressure ulcer and bacteremia Patient is a 68-year-old male past medical history of MS, CVA with residual left-sided hemiplegia patient is currently bedbound with bilateral lower extremity contracture and did have a sacral pressure ulcer senior care resident patient was sent to the ER at [facility] on 05/12/2023 for increasing lethargy and dark urine and the sacral pressure ulcer, patient did have a positive blood culture prompting this infectious disease consultation. On today's evaluation that is 05/15/2023, the patient remains to be afebrile the patient is breathing comfortably on 2 L nasal cannula oxygen patient denies having any chest pain shortness of breath or cough no nausea no vomiting no abdominal pain no diarrhea has been reported. The patient white count has normalized to 6.3 creatinine 0.52 cultures currently growing Proteus and Staph aureus in the blood and a gram-negative in the urine, CT of the sacrum osteomyelitis cannot be ruled out Objective - Vital Signs Vital signs: Vital Signs Temp 98 F 05/15/23 12:56 Pulse 75 05/15/23 12:56 Resp 19 05/15/23 12:56 BP 112/68 05/15/23 12:56 Pulse Ox 97 05/15/23 12:56 FiO2 Intake & Output 05/14/23 05/15/23 05/15/23 18:59 06:59 18:59 Intake Total 450 Output Total 1959 2400 1400 Balance -1959 2400 -950 Weight 81.783 kg 99 kg Intake: Oral 450 Output: Urine 1959 2399 1400 Other: Voiding Method Indwelling Catheter Indwelling Catheter # Bowel Movements 1 - Exam GENERAL DESCRIPTION: An elderly male lying in bed in no distress RESPIRATORY SYSTEM: Unlabored breathing , decreased breath sounds at bases HEART: S1 S2 regular rate and rhythm , ABDOMEN: Soft , no tenderness EXTREMITIES: No edema feet Patient did have a stage IV sacral pressure ulcer with bone palpable deep culture obtained - Labs CBC & Chem 7: 05/15/23 06:06 05/16/23 05:03 Labs: Abnormal Lab Results - Last 24 Hours (Table) 05/15/23 05/15/23 05/15/23 Range/Units 06:06 06:06 06:06 RBC 3.50 L (4.30-5.90) m/uL Hgb 10.3 L (13.0-17.5) gm/dL Hct 32.3 L (39.0-53.0) % Creatinine 0.52 L (0.66-1.25) mg/dL Procalcitonin 5.64 H (0.02-0.09) ng/mL Microbiology - Last 24 Hours (Table) 05/12/23 14:44 Blood Culture Gram Stain - Preliminary Blood Blood Culture - Preliminary Staphylococcus aureus Gram Neg Bacilli Coagulase Negative Staph 05/12/23 14:44 Urine Culture - Final Urine,Voided Providencia stuartii Proteus mirabilis 05/12/23 14:44 Blood Culture Gram Stain - Preliminary Blood Blood Culture - Preliminary Coagulase Negative Staph Assessment and Plan (1) Stage IV pressure ulcer of sacral region Current Visit: Yes Status: Acute Code(s): L89.154 - PRESSURE ULCER OF SACRAL REGION, STAGE 4 SNOMED Code(s): 80015818238233 (2) Sacral osteomyelitis Current Visit: Yes Status: Acute Code(s): M46.28 - OSTEOMYELITIS OF VERTEBRA, SACRAL AND SACROCOCCYGEAL REGION SNOMED Code(s): 862920023 (3) Bacteremia Current Visit: Yes Status: Acute Code(s): R78.81 - BACTEREMIA SNOMED Code(s): 6491893 (4) UTI (urinary tract infection) Current Visit: Yes Status: Acute Code(s): N39.0 - URINARY TRACT INFECTION, SITE NOT SPECIFIED SNOMED Code(s): 26255387 Plan: 1patient was in the hospital with sepsis in this patient who did have a fever elevated white count source is multifactorial in this patient with lactic acidosis UTI with urine currently showing gram-negative bacilli possibly ceftriaxone sensitive pathogen. 2patient also have a Staph aureus bacteremia source questionably infected sacral pressure ulcer. 3blood cultures has been repeated document clearance of his bacteremia. 4 CT of the pelvis/sacrum suspicious for sacral osteomyelitis 5patient to continue with vancomycin pharmacy to dose target trough of 15 while watching kidney function while waiting for the culture to finalize Dictation was produced using [employer] dictation software. please excuse any grammatical, word or spelling errors. Time with Patient: Less than 30
--- NOTE | 2023-05-16 22:50 | P.PN ---
Subjective Progress Note Date: 05/16/23 Principal diagnosis: Reason for follow-up with UTI stage IV sacral pressure ulcer and bacteremia Patient is a 68-year-old male past medical history of MS, CVA with residual left-sided hemiplegia patient is currently bedbound with bilateral lower extremity contracture and did have a sacral pressure ulcer retirement resident patient was sent to the ER at [facility] on 05/12/2023 for increasing lethargy and dark urine and the sacral pressure ulcer, patient did have a positive blood culture prompting this infectious disease consultation. On today's evaluation that is 05/16/2023, the patient continues to be afebrile the patient is breathing comfortably on room air without need for supplemental oxygen patient denies having any chest pain shortness of breath or cough no nausea no vomiting no abdominal pain no diarrhea has been reported. The patient white count has normalized to 6.3 as of yesterday no CBC was done today creatinine 0.52 cultures currently growing Proteus and MSSA along with a coagulase-negative staph in the blood and a Proteus and providentia in the urine, CT of the sacrum osteomyelitis cannot be ruled out Objective - Vital Signs Vital signs: Vital Signs Temp 98.7 F 05/16/23 07:36 Pulse 73 05/16/23 07:36 Resp 19 05/16/23 07:36 BP 128/67 05/16/23 07:36 Pulse Ox 93 L 05/16/23 07:36 FiO2 Intake & Output 05/15/23 05/16/23 05/16/23 18:59 06:59 18:59 Intake Total 450 850 Output Total 1660 2800 Balance -1210 -1950 Intake: Oral 450 850 Output: Urine 1660 2800 Other: Voiding Method Indwelling Catheter Indwelling Catheter Indwelling Catheter - Exam GENERAL DESCRIPTION: An elderly male lying in bed in no distress RESPIRATORY SYSTEM: Unlabored breathing , decreased breath sounds at bases HEART: S1 S2 regular rate and rhythm , ABDOMEN: Soft , no tenderness EXTREMITIES: No edema feet Patient did have a stage IV sacral pressure ulcer with bone palpable deep culture obtained - Labs CBC & Chem 7: 05/15/23 06:06 05/16/23 05:03 Labs: Abnormal Lab Results - Last 24 Hours (Table) 05/16/23 05/16/23 Range/Units 05:03 05:03 ESR 81 H (0-20) mm/Hr Creatinine 0.53 L (0.66-1.25) mg/dL Microbiology - Last 24 Hours (Table) 05/15/23 15:35 Gram Stain - Preliminary Buttock 05/12/23 14:44 Blood Culture Gram Stain - Preliminary Blood Blood Culture - Preliminary Staphylococcus aureus Gram Neg Bacilli Coagulase Negative Staph 05/12/23 14:44 Urine Culture - Final Urine,Voided Providencia stuartii Proteus mirabilis 05/12/23 14:44 Blood Culture Gram Stain - Preliminary Blood Blood Culture - Preliminary Coagulase Negative Staph Assessment and Plan (1) Bacteremia Current Visit: Yes Status: Acute Code(s): R78.81 - BACTEREMIA SNOMED Code(s): 4579530 (2) Sacral osteomyelitis Current Visit: Yes Status: Acute Code(s): M46.28 - OSTEOMYELITIS OF VERTEBRA, SACRAL AND SACROCOCCYGEAL REGION SNOMED Code(s): 921260983 (3) Stage IV pressure ulcer of sacral region Current Visit: Yes Status: Acute Code(s): L89.154 - PRESSURE ULCER OF SACRAL REGION, STAGE 4 SNOMED Code(s): 87676166908141 (4) UTI (urinary tract infection) Current Visit: Yes Status: Acute Code(s): N39.0 - URINARY TRACT INFECTION, SITE NOT SPECIFIED SNOMED Code(s): 02757046 Plan: 1patient was in the hospital with sepsis in this patient who did have a fever elevated white count source is multifactorial in this patient with lactic acidosis UTI with urine currently showing gram-negative bacilli possibly ceftriaxone sensitive pathogen. 2patient also have a Staph aureus bacteremia source questionably infected sacral pressure ulcer patient did have elevated sed rate of 81. 3blood cultures has been repeated document clearance of his bacteremia. 4 CT of the pelvis/sacrum suspicious for sacral osteomyelitis 5we will discontinue vancomycin and ceftriaxone, start the patient on cefepime 2 g 8 hours to cover for both the bacteremia and the UTI Once blood culture repeat negative remains to be negative, patient will be able to get a PICC line for outpatient IV antibiotics local wound care with Aquacel silver packing of the wound Dictation was produced using [employer] dictation software. please excuse any grammatical, word or spelling errors. Time with Patient: Less than 30
[2023-05-17] MEDS: CEFEPIME 2 GM in SODIUM CHLORIDE 0.9% 100 ML IVPB SCH ×4 (00:13→23:52)
[2023-05-17] MEDS: HYDROcodone/APAP 10-325MG 1 EACH TAB PO SCH ×4 (05:20→21:42)
[2023-05-17] MEDS: BACLOFEN 10 MG TAB PO SCH ×3 (06:09→21:42)
[2023-05-17] MEDS: CHOLECALCIFEROL 25 MCG (1000 IU) TABLET PO SCH (08:47)
[2023-05-17] MEDS: CYANOCOBALAMIN 500 MCG TAB PO SCH (08:48)
[2023-05-17] MEDS: FAMOTIDINE 20 MG TAB PO SCH ×2 (08:48→21:42)
[2023-05-17] MEDS: ASCORBIC ACID 500 MG TAB PO SCH (08:48)
--- NOTE | 2023-05-17 13:39 | P.PN ---
Progress Note - Text Progress Note Date: 05/17/23 Chief Complaint: Lethargic, dark urine This is a 68-year-old patient who arrived with EMS from the care home. Patient had a MLS with bilateral lower extremity contracture. Does have a PEG tube and a Cassidy catheter. Patient has not been using PEG tube and is able to eat by mouth. Patient only able to answer questions very slowly. This found to be more lethargic. Urine darker in color. Also has a sacral decubitus ulcer. Patient is only able to answer questions very slowly. 05/13/2023: Patient admitted with acute UTI with delirium. On IV ceftriaxone. Doing better this morning. Did eat some food with assistance. Able to answer questions much better today. No fever 05/14/2023: Laying in bed. Able to hold a conversation. Tolerating a diet. IV ceftriaxone. Blood cultures growing presumptive staph aureus. Repeat blood culture. IV vancomycin pharmacy dose. Consult ID. May 15: Blood cultures currently showing cardiomegaly is negative staph and presumptive staph aureus. Urine culture is finalized. No fever. Eating well. Blood cultures pending from the 6. Sacral decubital computed tomography scan changes appear to be predominantly chronic. 05/16/2023: Comfortable. Tolerating a diet. Discussed with ID. Patient probably will need IV antibiotics. Spoke to the patient's on the phone at length. In the care home the nurse at . the patient's about possible hospice. They've had a visit. I discussed with the the patient has done much better since admission. Tolerating a diet. Common eating. agrees. Once treatment to continue. He is quite pleased that the patient is doing well. At this point hospice will not be done. Does some questions about pain control. Will consult pain management. Also communicated with the social services counselor. 05/17/2023: Patient in bed. Tolerating diet. Hospital does not have staph for PICC line placement. Pending the same. Discharge antibiotics per ID. Discussed with him. Active Medications Acetaminophen (Acetaminophen Tab 325 Mg Tab) 650 mg PO Q6HR PRN PRN Reason: Mild Pain or Fever > 100.5 Last Admin: 05/16/23 18:51 Dose: 650 mg Hydrocodone Bitart/Acetaminophen (Hydrocodone/Apap 10-325mg 1 Each Tab) 1 each PO Q6H [facility] Last Admin: 05/17/23 08:47 Dose: 1 each Ascorbic Acid (Ascorbic Acid 500 Mg Tab) 500 mg PO DAILY [facility] Last Admin: 05/17/23 08:48 Dose: 500 mg Baclofen (Baclofen 10 Mg Tab) 10 mg PO Q8H PRN PRN Reason: Pain Last Admin: 05/16/23 18:51 Dose: 10 mg Baclofen (Baclofen 10 Mg Tab) 20 mg PO TID@0500,1300,2100 [facility] Last Admin: 05/17/23 06:09 Dose: 20 mg Bisacodyl (Bisacodyl 5 Mg Tablet.Dr) 10 mg PO Q12H PRN PRN Reason: Constipation Cholecalciferol (Cholecalciferol 25 Mcg (1000 Iu) Tablet) 25 mcg PO DAILY [facility] Last Admin: 05/17/23 08:47 Dose: 25 mcg Cyanocobalamin (Cyanocobalamin 500 Mcg Tab) 1,000 mcg PO DAILY [facility] Last Admin: 05/17/23 08:48 Dose: 1,000 mcg Doxazosin Mesylate (Doxazosin 1 Mg Tab) 1 mg PO [facility] Last Admin: 05/16/23 21:07 Dose: 1 mg Famotidine (Famotidine 20 Mg Tab) 20 mg PO BID [facility] Last Admin: 05/17/23 08:48 Dose: 20 mg Sodium Chloride (Saline 0.9%) 1,000 mls @ 20 mls/hr IV .Q24H [facility] Last Admin: 05/16/23 21:12 Dose: Not Given Cefepime HCl 2 gm/ Sodium (Chloride) 100 mls @ 25 mls/hr IVPB Q8HR [facility]; Protocol Last Admin: 05/17/23 08:48 Dose: 25 mls/hr Multivitamins (Multivitamins, Thera 1 Each Tab) 1 each PO HS [facility] Last Admin: 05/16/23 21:07 Dose: 1 each Naloxone HCl (Naloxone 0.4 Mg/Ml 1 Ml Vial) 0.2 mg IV Q2M PRN PRN Reason: Opioid Reversal Polyethylene Glycol (Polyethylene Glycol 3350 17 Gm Powd.Pack) 17 gm PO DAILY PRN PRN Reason: Constipation Tizanidine HCl (Tizanidine 4 Mg Tab) 4 mg PO Q6H PRN PRN Reason: Pain Last Admin: 01/08/24 01:10 Dose: 4 mg Physical examination: VITAL SIGNS: 98.2, 77, 21, 1 38 x 68, 91% room air GENERAL: Reclining in bed, is comfortable EYES: Pupils equal. Conjunctiva normal. HEENT: External appearance of nose and ears normal, oral cavity dry mucous membranes. NECK: JVD not raised; masses not palpable. HEART: First and second heart sounds are normal; no edema. LUNGS:[ Respiratory rate normal; increased breath sounds. ABDOMEN: Soft, nontender, liver spleen not palpable, no masses palpable. PEG tube PSYCH: answer questions appropriately MUSCULOSKELETAL:No Clubbing/cyanosis;muscles-grossly intact. Some contracture of the bilateral lower extremity. Sacral decubitus ulcers-see nursing note for details NEUROLOGICAL: [Cranial nerves grossly intact; no facial asymmetry, weakness of the left arm and leg. Slight movement. Some contracture. INVESTIGATIONS, reviewed in the clinical context: Computed tomography scan sacrum: Predominantly chronic changes. Question about acute osteomyelitis. 05/15/2023: White count 6.3 and globin 10.3 platelets 179 potassium 3.9. Procalcitonin 5.64 Blood culture [May 12] Staphylococcus epidermidis. Proteus mirabilis. Staphylococcus aureus. Urine culture [May 12] procidentia Stuartii, Proteus mirabilis 05/13/2023: White count 11.9 hemoglobin 11 potassium 4.1 BUN 36 creatinine 0.7 05/12/2023: White count 20.3 hemoglobin 11.9 platelets 194 sodium 139 potassium 5 BUN 52 creatinine 1.37 lactic acid 2.1 UA: Large blood. Large leukoesterase WBC 1 each to Influenza type A, type B, RSV, COVID-19: Not detected Assessment and plan: -Acute UTI secondary to Cassidy catheter [chronic ), from procidentia Stuartii, Proteus mirabilis IV ceftriaxone, changed over to IV cefepime 2 g to 8. -Sepsis with positive blood cultures growing staph aureus, Staphylococcus epidermidis. [May 12] IV vancomycin-changed over to IV cefepime. ID following. Repeat blood culture from May 16 pending. Pending PICC line -Acute delirium from UTI sepsis on presentation: Improved -Acute kidney injury secondary to ATN from improved Admission creatinine was 1.37, today 0.7 -Sacral decubitus ulcer, causing probable acute osteomyelitis Follow with wound care. IV cefepime -Chronic pain from underlying medical conditions. [place] schedule. Consult pain management -Chronic medical debility, patient on ambulatory -Chronic multiple sclerosis bilateral lower extremity contractures, left arm weakness -Patient has a PEG tube. But able to eat by mouth Feeding by mouth with assistance -Chronic Cassidy catheter for chronic bladder dysfunction -Full code Pending PICC line. Pain management team was consulted yesterday. Past Medical History Past Medical History: No Reported History, Neurologic Disorder Additional Past Medical History / Comment(s): Patient diagnosed with MS 2008. Falls(most recently 11/04/2018). Arthritis left hip. Leg tremors. Bilateral LE contractures. migraines in past. Hx. of past bedsore between buttocks-since healed. History of Any Multi-Drug Resistant Organisms: None Reported Past Surgical History: Appendectomy, Back Surgery, Orthopedic Surgery Additional Past Surgical History / Comment(s): pain pump removed about 2 weeks ago 10/2018. lt knee meniscus repair. back sx plate/screws, nose severed off when precision thread grinder operator flew into face-had sx to repair Past Anesthesia/Blood Transfusion Reactions: No Reported Reaction Additional Past Anesthesia/Blood Transfusion Reaction / Comment(s): clausterphobia Past Psychological History: Depression Past Alcohol Use History: None Reported Past Drug Use History: None Reported, Marijuana
--- NOTE | 2023-05-17 17:51 | P.PN ---
Subjective Progress Note Date: 05/17/23 Principal diagnosis: Reason for follow-up with UTI stage IV sacral pressure ulcer and bacteremia Patient is a 68-year-old male past medical history of MS, CVA with residual left-sided hemiplegia patient is currently bedbound with bilateral lower extremity contracture and did have a sacral pressure ulcer assisted resident patient was sent to the ER at [facility] on 05/12/2023 for increasing lethargy and dark urine and the sacral pressure ulcer, patient did have a positive blood culture prompting this infectious disease consultation. On today's evaluation that is 05/17/2023, the patient remains to be afebrile the patient is breathing comfortably on room air, patient denies having any chest pain shortness of breath or cough no nausea no vomiting no abdominal pain no diarrhea has been reported. The patient white count has normalized to 6.3 as of yesterday no CBC was done today creatinine 0.53 as of yesterday, patient did have sed rate of 81 cultures currently growing Proteus and MSSA along with a coagulase-negative staph in the blood and a Proteus and providentia in the urine, CT of the sacrum osteomyelitis cannot be ruled out Objective - Vital Signs Vital signs: Vital Signs Temp 98.4 F 05/17/23 13:54 Pulse 94 05/17/23 13:54 Resp 21 05/17/23 13:54 BP 112/73 05/17/23 13:54 Pulse Ox 95 05/17/23 13:54 FiO2 Intake & Output 05/16/23 05/17/23 05/17/23 18:59 06:59 18:59 Intake Total 800 Output Total 1900 Balance -1100 Intake: Oral 800 Output: Urine 1900 Other: Voiding Method Indwelling Catheter Indwelling Catheter Indwelling Catheter - Exam GENERAL DESCRIPTION: An elderly male lying in bed in no distress RESPIRATORY SYSTEM: Unlabored breathing , decreased breath sounds at bases HEART: S1 S2 regular rate and rhythm , ABDOMEN: Soft , no tenderness EXTREMITIES: No edema feet Patient did have a stage IV sacral pressure ulcer with bone palpable deep cultu re obtained - Labs CBC & Chem 7: 05/15/23 06:06 05/16/23 05:03 Labs: Microbiology - Last 24 Hours (Table) 05/16/23 05:03 Blood Culture - Preliminary Blood 05/15/23 15:35 Gram Stain - Preliminary Buttock Wound Culture - Preliminary Gram Neg Bacilli Assessment and Plan (1) Bacteremia Current Visit: Yes Status: Acute Code(s): R78.81 - BACTEREMIA SNOMED Code(s): 9735779 (2) Sacral osteomyelitis Current Visit: Yes Status: Acute Code(s): M46.28 - OSTEOMYELITIS OF VERTEBRA, SACRAL AND SACROCOCCYGEAL REGION SNOMED Code(s): 937678716 (3) Stage IV pressure ulcer of sacral region Current Visit: Yes Status: Acute Code(s): L89.154 - PRESSURE ULCER OF SACRAL REGION, STAGE 4 SNOMED Code(s): 80710394907506 (4) UTI (urinary tract infection) Current Visit: Yes Status: Acute Code(s): N39.0 - URINARY TRACT INFECTION, SITE NOT SPECIFIED SNOMED Code(s): 04867288 Plan: 1patient was in the hospital with sepsis in this patient who did have a fever elevated white count source is multifactorial in this patient with lactic acidosis UTI with urine currently showing gram-negative bacilli possibly ceftriaxone sensitive pathogen. 2patient also have a Staph aureus bacteremia source questionably infected sacral pressure ulcer patient did have elevated sed rate of 81. 3blood cultures has been repeated document clearance of his bacteremia. 4 CT of the pelvis/sacrum suspicious for sacral osteomyelitis 5patient to continue with cefepime 2 g 8 hours, PICC line has been ordered for outpatient IV antibiotic therapy Dictation was produced using [employer] dictation software. please excuse any grammatical, word or spelling errors. Time with Patient: Less than 30
[2023-05-17] MEDS: tiZANidine 4 MG TAB PO PRN (20:17)
[2023-05-17] MEDS: MULTIVITAMINS, THERA 1 EACH TAB PO SCH (21:42)
[2023-05-17] MEDS: DOXAZOSIN 1 MG TAB PO SCH (21:42)
[2023-05-17] MEDS: ACETAMINOPHEN TAB 325 MG TAB PO PRN (22:19)
[2023-05-17] MEDS: TEMAZEPAM 15 MG CAP PO PRN (22:29)
[2023-05-17] MEDS: SODIUM CHLORIDE 0.9% 1,000 ML IV SCH (23:31)
[2023-05-18] MEDS: HYDROcodone/APAP 10-325MG 1 EACH TAB PO SCH ×4 (02:59→22:15)
[2023-05-18] MEDS: BACLOFEN 10 MG TAB PO SCH ×3 (04:57→20:54)
[2023-05-18] MEDS: CHOLECALCIFEROL 25 MCG (1000 IU) TABLET PO SCH (07:41)
[2023-05-18] MEDS: CYANOCOBALAMIN 500 MCG TAB PO SCH (07:41)
[2023-05-18] MEDS: ASCORBIC ACID 500 MG TAB PO SCH (07:41)
[2023-05-18] MEDS: FAMOTIDINE 20 MG TAB PO SCH ×2 (07:41→20:54)
[2023-05-18] MEDS: CEFEPIME 2 GM in SODIUM CHLORIDE 0.9% 100 ML IVPB SCH (07:42)
--- NOTE | 2023-05-18 10:01 | P.GSCN ---
History of Present Illness Consult date: 05/18/23 Reason for Consult: Sacral decubitus Requesting physician: Lei Blount History of present illness: This is a chronically debilitated 68-year-old gentleman with MS and severe lower extremity contractures. He has a recent history of chronic sacral decubitus. Bone scan suggests the possibility of osteomyelitis of the sacrum. Past Medical History Past Medical History: No Reported History, Neurologic Disorder Additional Past Medical History / Comment(s): Patient diagnosed with MS 2008. Falls(most recently 11/04/2018). Arthritis left hip. Leg tremors. Bilateral LE contractures. migraines in past. Hx. of past bedsore between buttocks-since healed. History of Any Multi-Drug Resistant Organisms: None Reported Past Surgical History: Appendectomy, Back Surgery, Orthopedic Surgery Additional Past Surgical History / Comment(s): pain pump removed about 2 weeks ago 10/2018. lt knee meniscus repair. back sx plate/screws, nose severed off when magnetic grinder operator flew into face-had sx to repair Past Anesthesia/Blood Transfusion Reactions: No Reported Reaction Additional Past Anesthesia/Blood Transfusion Reaction / Comm: clausterphobia Past Psychological History: Depression Past Alcohol Use History: None Reported Past Drug Use History: None Reported, Marijuana - Past Family History Mother Family Medical History: Cancer, Dementia Additional Family Medical History / Comment(s): breast cancer Father Additional Family Medical History / Comment(s): after anuerysm sx Medications and Allergies Home Medications Medication Instructions Recorded Confirmed Type Cyanocobalamin (Vitamin B-12) 1,000 mcg PO DAILY 11/11/18 05/12/23 History [Vitamin B-12] bisacodyL [Bisacodyl] 10 mg PO Q12H PRN 11/11/18 05/12/23 History Baclofen [Lioresal] 10 mg PO Q8H PRN 11/28/18 05/12/23 History HYDROcodone/APAP 10-325MG [[place] 1 tab PO Q6H 11/28/18 05/12/23 History 10-325] polyethylene glycoL 3350 [Miralax] 17 gram PO DAILY PRN 11/28/18 05/12/23 History tiZANidine HCL 4 mg PO Q6H PRN 11/28/18 05/12/23 History Ascorbic Acid [Vitamin C] 500 mg PO DAILY 05/12/23 05/12/23 History Baclofen [Lioresal] 20 mg PO TID@0500,1300,2100 05/12/23 05/12/23 History Cholecalciferol [Vitamin D3 (25 25 mcg PO DAILY 05/12/23 05/12/23 History Mcg = 1000 Iu)] Doxazosin [Cardura] 1 mg PO HS 05/12/23 05/12/23 History Famotidine [Pepcid] 20 mg PO BID 05/12/23 05/12/23 History Menthol [Biofreeze] 1 applic TOPICAL Q8H PRN 05/12/23 05/12/23 History Multivitamins, Thera [Multivitamin 1 tab PO HS 05/12/23 05/12/23 History (formulary)] Prostat 30 ml PO BID 05/12/23 05/12/23 History guaiFENesin [guaiFENesin Oral 200 mg PO TID PRN 05/12/23 05/12/23 History Solution] Allergies Allergy/AdvReac Type Severity Reaction Status Date / Time No Known Allergies Allergy Verified 05/12/23 15:03 Surgical - Exam Osteopathic Statement: *. No significant issues noted on an osteopathic structural exam other than those noted in the History and Physical/Consult. Vital Signs Temp Pulse Resp BP 98.4 F 96 20 96/59 05/12/23 13:49 05/12/23 13:49 05/12/23 13:49 05/12/23 13:49 - General no distress - Neurologic Severe contractures of both lower extremities and weakness of both arms. Patient has a 3 cm sacral decubitus. It is fairly clean. I do palpate a small area, only a couple of millimeters, that is probably protruding bone. Results - Labs 05/15/23 06:06 05/16/23 05:03 Microbiology - Last 24 Hours (Table) 05/15/23 15:35 Gram Stain - Final Buttock Wound Culture - Final Klebsiella pneumoniae Morganella morganii 05/16/23 05:03 Blood Culture - Preliminary Blood Assessment and Plan (1) Stage IV pressure ulcer of sacral region Current Visit: Yes Status: Acute Code(s): L89.154 - PRESSURE ULCER OF SACRAL REGION, STAGE 4 SNOMED Code(s): 42044725585186 Plan: I think the plan at healing involves #1 maintaining strict offloading of the area. In doing so 1 must be very cautious as to not create breakdown over either greater trochanter of the femur. #2 I think the best option for getting coverage of the bone, besides any anti biotics added by infectious disease, would be to utilize a wound VAC. Prognosis for coverage and closure is fair.
[2023-05-18] MEDS: tiZANidine 4 MG TAB PO PRN (10:45)
[2023-05-18] MEDS ORDERED: KETOROLAC 15 MG/ML 1 ML VIAL IM PRN (10:47)
--- NOTE | 2023-05-18 10:48 | P.PAINPG ---
Objective - Vital Signs Vital signs: Vital Signs Temp 97.8 F 05/18/23 08:10 Pulse 90 05/18/23 08:10 Resp 19 05/18/23 08:10 BP 125/75 05/18/23 08:10 Pulse Ox 94 L 05/18/23 10:02 FiO2 Intake & Output 05/17/23 05/18/23 05/18/23 18:59 06:59 18:59 Output Total 600 1000 Balance -600 -1000 Output: Urine 600 1000 Other: Voiding Method Indwelling Catheter Indwelling Catheter Indwelling Catheter - Labs CBC & Chem 7: 05/15/23 06:06 05/16/23 05:03 Labs: Microbiology - Last 24 Hours (Table) 05/15/23 15:35 Gram Stain - Final Buttock Wound Culture - Final Klebsiella pneumoniae Morganella morganii 05/16/23 05:03 Blood Culture - Preliminary Blood PQRS Measure Charge Sheet Comment: HISTORY OF PRESENT ILLNESS: A 68 yr old inpatient male presents today w severe and chronic BL hip and LE pain secondary to contractures for evaluation. Pt states he passed out for >24 hrs and when he came to, he had a decubitus ulcer on his buttocks and excessive LE cramping. Pt states pain level is provoked at 8 /10 in intensity, constant, localized in the BL hips, cramping in character w occasional shooting pain towards the back of thighs and calves. Pain is provoked by movement. Pain is alleviated by medications ([place] 10/325mg q6h prn, Tyl 650mg q6h prn, Narcan prn, Baclofen 20mg TID), use of an ultrasonic massager by a visiting PT, repositioning and rest. PMH: L hip OA, MS (2009), BLE Contractures, Decubitus Ulcers, Claustrophobia, MDD PSH: Lumbar Surgery w Hardware, Pain pump placement/ Removal (2018), L Knee Arthroscopy, Nasal Surgery, Appendectomy SH: No tobacco use, No ETOH abuse, Cannabis use FH: Mo- Breast CA. Fa- Ruptured Aneurysm/ . All: See list Meds: See list REVIEW OF ORGAN SYSTEMS: CONSTITUTIONAL: No fevers or chills. No recent weight loss. NEUROLOGICAL: + numbness and tingling along the distal extremities. No seizure disorders or headaches. MUSCULOSKELETAL: + pain PSYCHIATRIC: Denies current depression or suicidal thoughts. Physical Examinations : Constitutional : Cooperative , not in acute distress . Neurologic : Cranial nerve II to XII intact. No focal neurological deficits. Psychiatric : alert & oriented x 3. Matching mood & appropriate affect. Judgment & insight intact. Musculoskeletal : Cervical Spine Motor strength in the deltoid and biceps: Normal right side. Normal Left side Motor strength biceps and the wrist extensors: Normal right side . Normal left side Motor strength in the triceps muscle: Normal right side. Normal left side Deep tendon reflexes: Normal at the biceps. Normal at Brachioradialis. Normal at triceps Vertebral body tenderness to deep palpation over Cervical facet loading test: positive bilaterally Spurling test: positive bilaterally Neck distraction test: positive bilaterally Blayne sign: positive bilaterally Lumbar spine Motor strength lower extremities ,thigh and legs 5/5 Right side , 5/5 Left side Deep tendon reflexes : Normal Knee Jerk. Normal Ankle Jerk Vertebral body tenderness over Mccurdy Test positive Lumbar facet Loading Test: positive Right / positive Left Range of motion of the lumbar spine Flexion 30 degrees, extension 10 degrees Straight Leg Raise test: Left/ Right positive at degrees Deanne test: positive right / positive left. Severe tenderness over the Sacroiliac joint on the Right / Left sides Gaenslen test: positive bilaterally Seated flexion test: positive bilaterally. Sacral spine : Severe tenderness over the Sacroiliac joint: right side / left side Range of motion: Flexion of the lumbar spine <60 degrees Range of motion: Extension of the lumbar spine <20 degrees Gaenslen's Test positive Deanne test: positive right side / left side Thigh Thrust Test Sacral Thrust Test Assessment/ Plan : BLE contractures, BL hip stiffness secondary to OA Recommendation of Toradol 15mg/mL IM q6h prn pain. This will be given alongside current medication protocol. Pt would benefit from PT/ OT ultrasonic massager therapy multiple times weekly. All questions answered. I have spent greater than 30 minutes on patient care today. Dr Salinas was available by phone for the evaluation of this patient. The time was used to review the medical records including relevant urine studies and Prescription history (MAPs), review of the available imaging, evaluation and examination of the patient, coordination of care with the medical staff and if applicable referring physicians, as well as creation of the medical record - Pain Location Left Upper Buttock Non-Pharmacological Interventions: Darkened Room, Position/Reposition Pharmacological Interventions: PRN Medication Bilateral Hip Non-Pharmacological Interventions: Emotional/Spiritual Support, Environmental Control, Position/Reposition Pharmacological Interventions: Discuss Pain Med Options, Scheduled Medication Pain Comment: see MAR PQRS Narrative: Smoking Status Never smoker Blood Pressure [Right Arm] 125/75 Blood Pressure 117/75 Pain Intensity [Bilateral Hip] 8 Pain Intensity [Left Upper 5 Buttock] Pain Intensity 4 Pain Scale Used Numeric (1 - 10) Scale Used Numeric (1 - 10) Home Medications: Ambulatory Orders Cyanocobalamin (Vitamin B-12) [Vitamin B-12] 1,000 mcg PO DAILY 11/11/18 bisacodyL [Bisacodyl] 10 mg PO Q12H PRN 11/11/18 Baclofen [Lioresal] 10 mg PO Q8H PRN 11/28/18 polyethylene glycoL 3350 [Miralax] 17 gram PO DAILY PRN 11/28/18 tiZANidine HCL 4 mg PO Q6H PRN 11/28/18 Ascorbic Acid [Vitamin C] 500 mg PO DAILY 05/12/23 Baclofen [Lioresal] 20 mg PO TID@0500,1300,2100 05/12/23 Cholecalciferol [Vitamin D3 (25 Mcg = 1000 Iu)] 25 mcg PO DAILY 05/12/23 Doxazosin [Cardura] 1 mg PO HS 05/12/23 Famotidine [Pepcid] 20 mg PO BID 05/12/23 Menthol [Biofreeze] 1 applic TOPICAL Q8H PRN 05/12/23 Multivitamins, Thera [Multivitamin (formulary)] 1 tab PO HS 05/12/23 Prostat 30 ml PO BID 05/12/23 guaiFENesin [guaiFENesin Oral Solution] 200 mg PO TID PRN 05/12/23 Acetaminophen Tab [Tylenol] 650 mg PO Q6HR PRN tab 05/18/23 HYDROcodone/APAP 10-325MG [[place] 10-325] 1 tab PO Q6H #12 tab 05/18/23 Controlled Substance Measures - Controlled Substance Measures Is patient prescribed a controlled substance at discharge?: No
[2023-05-18] MEDS: KETOROLAC 15 MG/ML 1 ML VIAL IVP PRN ×2 (12:24→20:52)
--- NOTE | 2023-05-18 13:49 | P.DS ---
Providers Date of admission: 05/12/23 18:10 Expected date of discharge: 05/18/23 Attending physician: Lei Blount Consults: 05/14/23 13:25 Consult Physician Routine Consulting Provider: Alis Newton Consult Reason/Comments: Positive blood culture Do you want consulting provider notified?: Yes 05/16/23 14:29 Consult Physician Routine Consulting Provider: Anesthesia,Services Consult Reason/Comments: pain management Do you want consulting provider notified?: Yes Primary care physician: [facility] Course: Chief Complaint: Lethargic, dark urine This is a 68-year-old patient who arrived with EMS from the retirement. Patient had a MLS with bilateral lower extremity contracture. Does have a PEG tube and a Cassidy catheter. Patient has not been using PEG tube and is able to eat by mouth. Patient only able to answer questions very slowly. This found to be more lethargic. Urine darker in color. Also has a sacral decubitus ulcer. Patient is only able to answer questions very slowly. 05/13/2023: Patient admitted with acute UTI with delirium. On IV ceftriaxone. Doing better this morning. Did eat some food with assistance. Able to answer questions much better today. No fever 05/14/2023: Laying in bed. Able to hold a conversation. Tolerating a diet. IV ceftriaxone. Blood cultures growing presumptive staph aureus. Repeat blood culture. IV vancomycin pharmacy dose. Consult ID. May 15: Blood cultures currently showing cardiomegaly is negative staph and presumptive staph aureus. Urine culture is finalized. No fever. Eating well. Blood cultures pending from the 6. Sacral decubital computed tomography scan changes appear to be predominantly chronic. 05/16/2023: Comfortable. Tolerating a diet. Discussed with ID. Patient probably will need IV antibiotics. Spoke to the patient's on the phone at length. In the retirement the nurse at . the patient's about possible hospice. They've had a visit. I discussed with the the patient has done much better since admission. Tolerating a diet. Common eating. agrees. Once treatment to continue. He is quite pleased that the patient is doing well. At this point hospice will not be done. Does some questions about pain control. Will consult pain management. Also communicated with the social media coordinator. 05/17/2023: Patient in bed. Tolerating diet. Hospital does not have [facility] for PICC line placement. Pending the same. Discharge antibiotics per ID. Discussed with him. 05/18/2023: Spoke to Dr. Cassidy from vascular. PICC line replaced this afternoon. Discussed with the patient. Discussed with ID Dr. Martinez.-Home antibiotics per him. Discussed with social media coordinator for discharge. Discussion and discharge planning more than 35 minutes Physical examination: VITAL SIGNS: 97.8, 90, 19, 1 25 x 75, 94% room air GENERAL: Reclining in bed, is comfortable EYES: Pupils equal. Conjunctiva normal. HEENT: External appearance of nose and ears normal, oral cavity dry mucous membranes. NECK: JVD not raised; masses not palpable. HEART: First and second heart sounds are normal; no edema. LUNGS:[ Respiratory rate normal; increased breath sounds. ABDOMEN: Soft, nontender, liver spleen not palpable, no masses palpable. PEG tube PSYCH: answer questions appropriately MUSCULOSKELETAL:No Clubbing/cyanosis;muscles-grossly intact. Some contracture of the bilateral lower extremity. Sacral decubitus ulcers-see nursing note for details NEUROLOGICAL: [Cranial nerves grossly intact; no facial asymmetry, weakness of the left arm and leg. Slight movement. Some contracture. INVESTIGATIONS, reviewed in the clinical context: Computed tomography scan sacrum: Predominantly chronic changes. Question about acute osteomyelitis. 05/15/2023: White count 6.3 and globin 10.3 platelets 179 potassium 3.9. Procalcitonin 5.64 Blood culture [May 12] Staphylococcus epidermidis. Proteus mirabilis. Staphylococcus aureus. Urine culture [May 12] procidentia Stuartii, Proteus mirabilis 05/13/2023: White count 11.9 hemoglobin 11 potassium 4.1 BUN 36 creatinine 0.7 05/12/2023: White count 20.3 hemoglobin 11.9 platelets 194 sodium 139 potassium 5 BUN 52 creatinine 1.37 lactic acid 2.1 UA: Large blood. Large leukoesterase WBC 1 each to Influenza type A, type B, RSV, COVID-19: Not detected Assessment and plan: -Acute UTI secondary to Cassidy catheter [chronic ), from procidentia Stuartii, Proteus mirabilis IV ceftriaxone, changed over to IV cefepime 2 g to 8. -Sepsis with positive blood cultures growing staph aureus, Staphylococcus epidermidis. [May 12] IV vancomycin-changed over to IV cefepime-120 doses for discharge. ID following outpatient. Pending PICC line today -Acute delirium from UTI sepsis on presentation: Improved -Acute kidney injury secondary to ATN from improved Admission creatinine was 1.37, today 0.7 -Sacral decubitus ulcer, causing probable acute osteomyelitis Follow with wound care. IV cefepime -Chronic pain from underlying medical conditions. [place] schedule. Consult pain management -Chronic medical debility, patient on ambulatory -Chronic multiple sclerosis bilateral lower extremity contractures, left arm weakness -Patient has a PEG tube. But able to eat by mouth Feeding by mouth with assistance -Chronic Cassidy catheter for chronic bladder dysfunction -Full code Disposition: Return to [facility] Past Medical History Past Medical History: No Reported History, Neurologic Disorder Additional Past Medical History / Comment(s): Patient diagnosed with MS 2008. Falls(most recently 11/04/2018). Arthritis left hip. Leg tremors. Bilateral LE contractures. migraines in past. Hx. of past bedsore between buttocks-since healed. History of Any Multi-Drug Resistant Organisms: None Reported Past Surgical History: Appendectomy, Back Surgery, Orthopedic Surgery Additional Past Surgical History / Comment(s): pain pump removed about 2 weeks ago 10/2018. lt knee meniscus repair. back sx plate/screws, nose severed off when precision grinder external flew into face-had sx to repair Past Anesthesia/Blood Transfusion Reactions: No Reported Reaction Additional Past Anesthesia/Blood Transfusion Reaction / Comment(s): clausterphobia Past Psychological History: Depression Past Alcohol Use History: None Reported Past Drug Use History: None Reported, Marijuana Plan - Discharge Summary New Discharge Prescriptions: New Acetaminophen Tab [Tylenol] 650 mg PO Q6HR PRN tab PRN Reason: Mild Pain Or Fever > 100.5 Cefepime [Maxipime] 2 gm IVPB Q8H #120 each Continue bisacodyL [Bisacodyl] 10 mg PO Q12H PRN PRN Reason: Constipation Cyanocobalamin (Vitamin B-12) [Vitamin B-12] 1,000 mcg PO DAILY Baclofen [Lioresal] 10 mg PO Q8H PRN PRN Reason: Pain polyethylene glycoL 3350 [Miralax] 17 gram PO DAILY PRN PRN Reason: Constipation tiZANidine HCL 4 mg PO Q6H PRN PRN Reason: Pain Menthol [Biofreeze] 1 applic TOPICAL Q8H PRN PRN Reason: LOWER BACK PAIN Baclofen [Lioresal] 20 mg PO TID@0500,1300,2100 Prostat 30 ml PO BID Famotidine [Pepcid] 20 mg PO BID Doxazosin [Cardura] 1 mg PO HS Cholecalciferol [Vitamin D3 (25 Mcg = 1000 Iu)] 25 mcg PO DAILY guaiFENesin [guaiFENesin Oral Solution] 200 mg PO TID PRN PRN Reason: Cough HYDROcodone/APAP 10-325MG [[place] 10-325] 1 tab PO Q6H #12 tab Multivitamins, Thera [Multivitamin (formulary)] 1 tab PO HS Ascorbic Acid [Vitamin C] 500 mg PO DAILY Discharge Medication List Cyanocobalamin (Vitamin B-12) [Vitamin B-12] 1,000 mcg PO DAILY 11/11/18 [History] bisacodyL [Bisacodyl] 10 mg PO Q12H PRN 11/11/18 [History] Baclofen [Lioresal] 10 mg PO Q8H PRN 11/28/18 [History] polyethylene glycoL 3350 [Miralax] 17 gram PO DAILY PRN 11/28/18 [History] tiZANidine HCL 4 mg PO Q6H PRN 11/28/18 [History] Ascorbic Acid [Vitamin C] 500 mg PO DAILY 05/12/23 [History] Baclofen [Lioresal] 20 mg PO TID@0500,1300,2100 05/12/23 [History] Cholecalciferol [Vitamin D3 (25 Mcg = 1000 Iu)] 25 mcg PO DAILY 05/12/23 [History] Doxazosin [Cardura] 1 mg PO HS 05/12/23 [History] Famotidine [Pepcid] 20 mg PO BID 05/12/23 [History] Menthol [Biofreeze] 1 applic TOPICAL Q8H PRN 05/12/23 [History] Multivitamins, Thera [Multivitamin (formulary)] 1 tab PO HS 05/12/23 [History] Prostat 30 ml PO BID 05/12/23 [History] guaiFENesin [guaiFENesin Oral Solution] 200 mg PO TID PRN 05/12/23 [History] Acetaminophen Tab [Tylenol] 650 mg PO Q6HR PRN tab 05/18/23 [Rx] Cefepime [Maxipime] 2 gm IVPB Q8H #120 each 05/18/23 [Rx] HYDROcodone/APAP 10-325MG [[place] 10-325] 1 tab PO Q6H #12 tab 05/18/23 [Rx] Follow up Appointment(s)/Referral(s): Dheeraj Alex DO [Primary Care Provider] - 1-2 days Alis Newton MD [STAFF PHYSICIAN] - 3 Weeks Ambulatory/Diagnostic Orders: Basic Metabolic Panel [LAB.AMB] Location: None Selected C Reactive Protein [LAB.AMB] Location: None Selected Complete Blood Count w/diff [LAB.AMB] Location: None Selected Erythrocyte Sedimentation Rate [LAB.AMB] Location: None Selected
[2023-05-18] MEDS ORDERED: VANCOMYCIN IV PER PHARMACY 1 EACH MISC MISCELLANE PRN (14:21)
[2023-05-18 15:04] VITALS: BMI 31.3
[2023-05-18] MEDS: ERTAPENEM 1 GM in SODIUM CHLORIDE 0.9% 50 ML IVPB SCH (16:10)
[2023-05-18] MEDS: VANCOMYCIN 1,250 MG in SODIUM CHLORIDE 0.9% 250 ML IVPB SCH (16:11)
[2023-05-18] MEDS: SODIUM CHLORIDE 0.9% 1,000 ML IV SCH (16:56)
[2023-05-18] MEDS: DOXAZOSIN 1 MG TAB PO SCH (20:53)
[2023-05-18] MEDS: MULTIVITAMINS, THERA 1 EACH TAB PO SCH (20:53)
[2023-05-19] MEDS: VANCOMYCIN 1,250 MG in SODIUM CHLORIDE 0.9% 250 ML IVPB SCH ×3 (01:48→14:34)
[2023-05-19] MEDS: tiZANidine 4 MG TAB PO PRN (01:53)
[2023-05-19] MEDS: BACLOFEN 10 MG TAB PO PRN ×2 (01:53→10:50)
[2023-05-19] MEDS: TEMAZEPAM 15 MG CAP PO PRN (02:06)
[2023-05-19] MEDS: HYDROcodone/APAP 10-325MG 1 EACH TAB PO SCH ×3 (03:45→14:34)
[2023-05-19] MEDS: BACLOFEN 10 MG TAB PO SCH ×2 (07:02→13:32)
[2023-05-19] MEDS: ASCORBIC ACID 500 MG TAB PO SCH (08:27)
[2023-05-19] MEDS: CYANOCOBALAMIN 500 MCG TAB PO SCH (08:27)
[2023-05-19] MEDS: CHOLECALCIFEROL 25 MCG (1000 IU) TABLET PO SCH (08:27)
[2023-05-19] MEDS: FAMOTIDINE 20 MG TAB PO SCH (08:27)
[2023-05-19] MEDS: KETOROLAC 15 MG/ML 1 ML VIAL IVP PRN ×2 (08:28→17:45)
[2023-05-19 09:42] VITALS: PULSE 95
[2023-05-19] MEDS ORDERED: LIDOCAINE 1% INJ 10MG/ML (5 ML VIAL-PF) SQ ONE (10:00)
--- NOTE | 2023-05-19 10:08 | P.OP ---
Date of Procedure: 05/19/23 Description of Procedure: Preoperative Diagnosis: Need for long-term IV antibiotic access. Postoperative Diagnosis: Same. Procedure(s) Performed: Ultrasound-guided cannulation right basilic vein. Insertion of peripherally inserted central catheter under fluoroscopic guidance. Anesthesia: local 1% lidocaine coni Surgeon: Ange Estimated Blood Loss (ml): 5 IV fluids (ml): 0 Urine output (ml): 0 Pathology: none sent Condition: stable Disposition: no change Indications for Procedure: Patient requires long-term IV antibiotics as an outpatient patient is offered a PICC line to allow for intravenous administration of antibiotics. Description of Procedure: Patient was brought to the special procedure suite. The right upper extremity sterilely prepped and draped in usual manner. Ultrasound was utilized to identify the basilic vein which was normally compressible free of visible thrombus. Permenant image was stored. 1% Xylocaine was utilized for local anesthesia tissues overlying the vein. Through this anesthetized area and with the aid of ultrasound a micropuncture needle was utilized to cannulate the vein. Once cannulated, Softip guidewire was advanced into the vein. The needle was withdrawn and a micropuncture sheath and dilator advanced over the guidewire. The guidewire was withdrawn and exchanged for the PICC guidewire and measured 38 cm to the cavoatrial junction. The catheter was cut to size and advanced into the cavoatrial junction without resistance. The sheath was peeled away. Blood was easily withdrawn through the catheter and the catheter was then flushed with heparinized saline solution and secured to the skin. Patient tolerated procedure well and was returned to their room in satisfactory and stable condition.
[2023-05-19] MEDS: ERTAPENEM 1 GM in SODIUM CHLORIDE 0.9% 50 ML IVPB SCH (10:51)
--- NOTE | 2023-05-19 14:51 | IR ---
EXAMINATION TYPE: IR cvc insert >=5 years DATE OF EXAM: 05/19/2023 FLUOROSCOPY Fluoroscopy time of 0.2 minutes was used during right PICC line placement for antibiotics. 12 image/ s document/s the procedure. 16.83 uGycm2 DAP.
--- NOTE | 2023-05-19 14:53 | P.PN ---
Subjective Progress Note Date: 05/18/23 Principal diagnosis: Reason for follow-up with UTI stage IV sacral pressure ulcer and bacteremia Patient is a 68-year-old male past medical history of MS, CVA with residual left-sided hemiplegia patient is currently bedbound with bilateral lower extremity contracture and did have a sacral pressure ulcer senior living resident patient was sent to the ER at [facility] on 05/12/2023 for increasing lethargy and dark urine and the sacral pressure ulcer, patient did have a positive blood culture prompting this infectious disease consultation. On today's evaluation that is 05/18/2023, the patient continues to be afebrile the patient is breathing comfortably on room air, patient denies having any chest pain shortness of breath or cough no nausea no vomiting no abdominal pain no diarrhea has been reported. No new symptoms The patient white count has normalized to 6.3 as of 05/15/2023 no CBC was done today creatinine 0.53 as of yesterday, patient did have sed rate of 81 cultures currently growing Proteus and MSSA along with a coagulase-negative staph in the blood and a Proteus and providentia in the urine, CT of the sacrum osteomyelitis cannot be ruled out, patient sacral wound culture growing ESBL Klebsiella Objective - Vital Signs Vital signs: Vital Signs Temp 97.8 F 05/18/23 08:10 Pulse 90 05/18/23 08:10 Resp 19 05/18/23 08:10 BP 125/75 05/18/23 08:10 Pulse Ox 94 L 05/18/23 10:02 FiO2 Intake & Output 05/17/23 05/18/23 05/18/23 18:59 06:59 18:59 Output Total 600 1000 Balance -600 -1000 Output: Urine 600 1000 Other: Voiding Method Indwelling Catheter Indwelling Catheter Indwelling Catheter - Exam GENERAL DESCRIPTION: An elderly male lying in bed in no distress RESPIRATORY SYSTEM: Unlabored breathing , decreased breath sounds at bases HEART: S1 S2 regular rate and rhythm , ABDOMEN: Soft , no tenderness EXTREMITIES: No edema feet Patient did have a stage IV sacral pressure ulcer with bone palpable deep culture obtained - Labs CBC & Chem 7: 05/15/23 06:06 05/16/23 05:03 Labs: Microbiology - Last 24 Hours (Table) 05/15/23 15:35 Gram Stain - Final Buttock Wound Culture - Final Klebsiella pneumoniae Morganella morganii 05/16/23 05:03 Blood Culture - Preliminary Blood Assessment and Plan (1) Bacteremia Current Visit: Yes Status: Acute Code(s): R78.81 - BACTEREMIA SNOMED Code(s): 5767156 (2) Sacral osteomyelitis Current Visit: Yes Status: Acute Code(s): M46.28 - OSTEOMYELITIS OF VERTEBRA, SACRAL AND SACROCOCCYGEAL REGION SNOMED Code(s): 269691590 (3) Stage IV pressure ulcer of sacral region Current Visit: Yes Status: Acute Code(s): L89.154 - PRESSURE ULCER OF SACRAL REGION, STAGE 4 SNOMED Code(s): 13635237713868 (4) UTI (urinary tract infection) Current Visit: Yes Status: Acute Code(s): N39.0 - URINARY TRACT INFECTION, SITE NOT SPECIFIED SNOMED Code(s): 76351328 Plan: 1patient was in the hospital with sepsis in this patient who did have a fever elevated white count source is multifactorial in this patient with lactic acidosis UTI with urine currently showing gram-negative bacilli possibly ceftriaxone sensitive pathogen. 2patient also have a Staph aureus bacteremia source questionably infected sacral pressure ulcer patient did have elevated sed rate of 81. 3blood cultures has been repeated and so far negative 4 CT of the pelvis/sacrum suspicious for sacral osteomyelitis 5patient cycle cultures now growing ESBL Klebsiella and Morganella 6-we will discontinue cefepime start the patient on Invanz 1 g daily x 6 weeks and will give him a 2-week course of vancomycin for his MSSA bacteremia Dictation was produced using [employer] dictation software. please excuse any grammatical, word or spelling errors. Time with Patient: Less than 30
--- NOTE | 2023-05-19 14:54 | P.PN ---
Subjective Progress Note Date: 05/19/23 Principal diagnosis: Reason for follow-up with UTI stage IV sacral pressure ulcer and bacteremia Patient is a 68-year-old male past medical history of MS, CVA with residual left-sided hemiplegia patient is currently bedbound with bilateral lower extremity contracture and did have a sacral pressure ulcer halfway resident patient was sent to the ER at [facility] on 05/12/2023 for increasing lethargy and dark urine and the sacral pressure ulcer, patient did have a positive blood culture prompting this infectious disease consultation. On today's evaluation that is 05/19/2023, the patient remains to be afebrile the patient is breathing comfortably on room air without need for supplemental oxygen, patient denies having any chest pain shortness of breath or cough no nausea no vomiting no abdominal pain no diarrhea has been reported. Patient did get a PICC line The patient white count has normalized to 6.3 as of 05/15/2023 no CBC was done today creatinine 0.53 as of yesterday, patient did have sed rate of 81 cultures currently growing Proteus and MSSA along with a coagulase-negative staph in the blood and a Proteus and providentia in the urine, CT of the sacrum osteomyelitis cannot be ruled out, patient sacral wound culture growing ESBL Klebsiella Objective - Vital Signs Vital signs: Vital Signs Temp 97.6 F 05/19/23 08:00 Pulse 95 05/19/23 08:00 Resp 17 05/19/23 08:00 BP 133/66 05/19/23 08:00 Pulse Ox 93 L 05/19/23 08:00 FiO2 Intake & Output 05/18/23 05/19/23 05/19/23 18:59 06:59 18:59 Intake Total 1880 Output Total 0087 569 4093 Balance 680 -500 -1000 Weight 99 kg Intake: Intake, IV Titration 1400 Amount Ertapenem 1 gm In Sodium 50 Chloride 0.9% 50 ml @ 100 mls/hr IVPB DAILY@1200 MARLEEN Rx#:[id number] Sodium Chloride 0.9% 1, 100 000 ml @ 20 mls/hr IV . Q24H MARLEEN Rx#:[id number] Vancomycin 1,250 mg In 1250 Sodium Chloride 0.9% 250 ml @ 125 mls/hr IVPB Q12H MARLEEN Rx#:[id number] Oral 480 Output: Urine 9215 100 4335 Uretheral (Cassidy) 1200 1000 Other: Voiding Method Indwelling Catheter Indwelling Catheter Indwelling Catheter - Exam GENERAL DESCRIPTION: An elderly male lying in bed in no distress RESPIRATORY SYSTEM: Unlabored breathing , decreased breath sounds at bases HEART: S1 S2 regular rate and rhythm , ABDOMEN: Soft , no tenderness EXTREMITIES: No edema feet Patient did have a stage IV sacral pressure ulcer with bone palpable deep culture obtained - Labs CBC & Chem 7: 05/15/23 06:06 05/16/23 05:03 Labs: Microbiology - Last 24 Hours (Table) 05/16/23 05:03 Blood Culture - Preliminary Blood Assessment and Plan (1) Bacteremia Current Visit: Yes Status: Acute Code(s): R78.81 - BACTEREMIA SNOMED Code(s): 0377064 (2) Sacral osteomyelitis Current Visit: Yes Status: Acute Code(s): M46.28 - OSTEOMYELITIS OF VERTEBRA, SACRAL AND SACROCOCCYGEAL REGION SNOMED Code(s): 220548365 (3) Stage IV pressure ulcer of sacral region Current Visit: Yes Status: Acute Code(s): L89.154 - PRESSURE ULCER OF SACRAL REGION, STAGE 4 SNOMED Code(s): 92173295199165 (4) UTI (urinary tract infection) Current Visit: Yes Status: Acute Code(s): N39.0 - URINARY TRACT INFECTION, SITE NOT SPECIFIED SNOMED Code(s): 52915893 Plan: 1patient was in the hospital with sepsis in this patient who did have a fever elevated white count source is multifactorial in this patient with lactic acidosis UTI with urine currently showing gram-negative bacilli possibly ceftriaxone sensitive pathogen. 2patient also have a Staph aureus bacteremia source questionably infected sacral pressure ulcer patient did have elevated sed rate of 81. 3blood cultures has been repeated and so far negative 4 CT of the pelvis/sacrum suspicious for sacral osteomyelitis 5patient cycle cultures now growing ESBL Klebsiella and Morganella 6-patient to continue with Invanz 1 g daily x 6 weeks for his sacral osteomyelitis and currently course of vancomycin pharmacy to dose for his MSSA bacteremia Dictation was produced using [employer] software. please excuse any grammatical, word or spelling errors. Time with Patient: Less than 30
[2023-05-19 16:11] VITALS: BP 123/74; RESP 16; TEMP 97.4
[2023-05-19] MEDS: SODIUM CHLORIDE 0.9% 1,000 ML IV SCH (16:31)
--- NOTE | 2023-05-19 17:06 | P.PN ---
Progress Note - Text Progress Note Date: 05/18/23 Chief Complaint: Lethargic, dark urine This is a 68-year-old patient who [facility] with [facility]. Patient had a MLS with bilateral lower extremity contracture. Does have a PEG tube and a Cassidy catheter. Patient has not been using PEG tube and is able to eat by mouth. Patient only able to answer questions very slowly. This found to be more lethargic. Urine darker in color. Also has a sacral decubitus ulcer. Patient is only able to answer questions very slowly. 05/13/2023: Patient admitted with acute UTI with delirium. On IV ceftriaxone. Doing better this morning. Did eat some food with assistance. Able to answer questions much better today. No fever 05/14/2023: Laying in bed. Able to hold a conversation. Tolerating a diet. IV ceftriaxone. Blood cultures growing presumptive staph aureus. Repeat blood culture. IV vancomycin pharmacy dose. Consult ID. May 15: Blood cultures currently showing cardiomegaly is negative staph and presumptive staph aureus. Urine culture is finalized. No fever. Eating well. Blood cultures pending from the 6. Sacral decubital computed tomography scan changes appear to be predominantly chronic. 05/16/2023: Comfortable. Tolerating a diet. Discussed with ID. Patient probably will need IV antibiotics. Spoke to the patient's on the phone at length. In the [facility] the nurse at . the patient's about possible hospice. They've had a visit. I discussed with the the patient has done much better since admission. Tolerating a diet. Common eating. agrees. Once treatment to continue. He is quite pleased that the patient is doing well. At this point hospice will not be done. Does some questions about pain control. Will consult pain management. Also communicated with the delinquency prevention social worker. 05/17/2023: Patient in bed. Tolerating diet. Hospital does not have staph for PICC line placement. Pending the same. Discharge antibiotics per ID. Discussed with him. 05/18/2023: Spoke to Dr. Cassidy from vascular. PICC line to be replaced this afternoon. Discussed with the patient. Discussed with ID Dr. Martinez.-Home antibiotics per him. Discussed with delinquency prevention social worker for discharge. PICC line could not be placed. Has discharged postponed Current medications reviewed Physical examination: VITAL SIGNS: 97.8, 90, 19, 1 25 x 75, 94% room air GENERAL: Reclining in bed, is comfortable EYES: Pupils equal. Conjunctiva normal. HEENT: External appearance of nose and ears normal, oral cavity dry mucous membranes. NECK: JVD not raised; masses not palpable. HEART: First and second heart sounds are normal; no edema. LUNGS:[ Respiratory rate normal; increased breath sounds. ABDOMEN: Soft, nontender, liver spleen not palpable, no masses palpable. PEG tube PSYCH: answer questions appropriately MUSCULOSKELETAL:No Clubbing/cyanosis;muscles-grossly intact. Some contracture of the bilateral lower extremity. Sacral decubitus ulcers-see nursing note for details NEUROLOGICAL: [Cranial nerves grossly intact; no facial asymmetry, weakness of the left arm and leg. Slight movement. Some contracture. INVESTIGATIONS, reviewed in the clinical context: Computed tomography scan sacrum: Predominantly chronic changes. Question about acute osteomyelitis. 05/15/2023: White count 6.3 and globin 10.3 platelets 179 potassium 3.9. Procalcitonin 5.64 Blood culture [May 12] Staphylococcus epidermidis. Proteus mirabilis. Staphylococcus aureus. Urine culture [May 12] procidentia Stuartii, Proteus mirabilis 05/13/2023: White count 11.9 hemoglobin 11 potassium 4.1 BUN 36 creatinine 0.7 05/12/2023: White count 20.3 hemoglobin 11.9 platelets 194 sodium 139 potassium 5 BUN 52 creatinine 1.37 lactic acid 2.1 UA: Large blood. Large leukoesterase WBC 1 each to Influenza type A, type B, RSV, COVID-19: Not detected Assessment and plan: -Acute UTI secondary to Cassidy catheter [chronic ), from procidentia Stuartii, Proteus mirabilis IV ceftriaxone, changed over to IV cefepime 2 g to 8. -Sepsis with positive blood cultures growing staph aureus, Staphylococcus epidermidis. [May 12] IV vancomycin-changed over to IV cefepime-120 doses for discharge. ID following outpatient. Pending PICC line today -Acute delirium from UTI sepsis on presentation: Improved -Acute kidney injury secondary to ATN from improved Admission creatinine was 1.37, today 0.7 -Sacral decubitus ulcer, causing probable acute osteomyelitis Follow with wound care. IV cefepime -Chronic pain from underlying medical conditions. [place] schedule. Consult pain management -Chronic medical debility, patient on ambulatory -Chronic multiple sclerosis bilateral lower extremity contractures, left arm weakness -Patient has a PEG tube. But able to eat by mouth Feeding by mouth with assistance -Chronic Cassidy catheter for chronic bladder dysfunction -Full code pEnding Disposition: Return to [facility] Past Medical History Past Medical History: No Reported History, Neurologic Disorder Additional Past Medical History / Comment(s): Patient diagnosed with MS 2008. Falls(most recently 11/04/2018). Arthritis left hip. Leg tremors. Bilateral LE contractures. migraines in past. Hx. of past bedsore between buttocks-since healed. History of Any Multi-Drug Resistant Organisms: None Reported Past Surgical History: Appendectomy, Back Surgery, Orthopedic Surgery Additional Past Surgical History / Comment(s): pain pump removed about 2 weeks ago 10/2018. lt knee meniscus repair. back sx plate/screws, nose severed off when cutlery grinder flew into face-had sx to repair Past Anesthesia/Blood Transfusion Reactions: No Reported Reaction Additional Past Anesthesia/Blood Transfusion Reaction / Comment(s): clausterphobia Past Psychological History: Depression Past Alcohol Use History: None Reported Past Drug Use History: None Reported, Marijuana
--- NOTE | 2023-05-19 17:09 | P.DS ---
Providers Date of admission: 05/12/23 18:10 Expected date of discharge: 05/19/23 Attending physician: Lei Blount Consults: 05/14/23 13:25 Consult Physician Routine Consulting Provider: Alis Newton Consult Reason/Comments: Positive blood culture Do you want consulting provider notified?: Yes 05/16/23 14:29 Consult Physician Routine Consulting Provider: Anesthesia,Services Consult Reason/Comments: pain management Do you want consulting provider notified?: Yes Primary care physician: [facility] Course: Chief Complaint: Lethargic, dark urine This is a 68-year-old patient who [facility]. Patient had a MLS with bilateral lower extremity contracture. Does have a PEG tube and a Cassidy catheter. Patient has not been using PEG tube and is able to eat by mouth. Patient only able to answer questions very slowly. This found to be more lethargic. Urine darker in color. Also has a sacral decubitus ulcer. Patient is only able to answer questions very slowly. 05/13/2023: Patient admitted with acute UTI with delirium. On IV ceftriaxone. Doing better this morning. Did eat some food with assistance. Able to answer questions much better today. No fever 05/14/2023: Laying in bed. Able to hold a conversation. Tolerating a diet. IV ceftriaxone. Blood cultures growing presumptive staph aureus. Repeat blood culture. IV vancomycin pharmacy dose. Consult ID. May 15: Blood cultures currently showing cardiomegaly is negative staph and presumptive staph aureus. Urine culture is finalized. No fever. Eating well. Blood cultures pending from the 6. Sacral decubital computed tomography scan changes appear to be predominantly chronic. 05/16/2023: Comfortable. Tolerating a diet. Discussed with ID. Patient probably will need IV antibiotics. Spoke to the patient's on the phone at length. In the [facility] the nurse at . the patient's about possible hospice. They've had a visit. I discussed with the the patient has done much better since admission. Tolerating a diet. Common eating. agrees. Once treatment to continue. He is quite pleased that the patient is doing well. At this point hospice will not be done. Does some questions about pain control. Will consult pain management. Also communicated with the social service manager. 05/17/2023: Patient in bed. Tolerating diet. Hospital does not have staph for PICC line placement. Pending the same. Discharge antibiotics per ID. Discussed with him. 05/18/2023: Spoke to Dr. Cassidy from vascular. PICC line pending. Discussed with the patient. Discussed with ID Dr. Martinez.-Home antibiotics per him. Discussed with social service manager for discharge. 05/19/2023: PICC line placed this morning. Otherwise stable. Pending transfer to [facility]. Physical examination: VITAL SIGNS: 97.4, 16, 123.74, 94% room air GENERAL: Reclining in bed, is comfortable EYES: Pupils equal. Conjunctiva normal. HEENT: External appearance of nose and ears normal, oral cavity dry mucous membranes. NECK: JVD not raised; masses not palpable. HEART: First and second heart sounds are normal; no edema. LUNGS:[ Respiratory rate normal; increased breath sounds. ABDOMEN: Soft, nontender, liver spleen not palpable, no masses palpable. PEG tube PSYCH: answer questions appropriately MUSCULOSKELETAL:No Clubbing/cyanosis;muscles-grossly intact. Some contracture of the bilateral lower extremity. Sacral decubitus ulcers-see nursing note for details NEUROLOGICAL: [Cranial nerves grossly intact; no facial asymmetry, weakness of the left arm and leg. Slight movement. Some contracture. INVESTIGATIONS, reviewed in the clinical context: Computed tomography scan sacrum: Predominantly chronic changes. Question about acute osteomyelitis. 05/15/2023: White count 6.3 and globin 10.3 platelets 179 potassium 3.9. Procalcitonin 5.64 Blood culture [May 12] Staphylococcus epidermidis. Proteus mirabilis. Staphylococcus aureus. Urine culture [May 12] procidentia Stuartii, Proteus mirabilis 05/13/2023: White count 11.9 hemoglobin 11 potassium 4.1 BUN 36 creatinine 0.7 05/12/2023: White count 20.3 hemoglobin 11.9 platelets 194 sodium 139 potassium 5 BUN 52 creatinine 1.37 lactic acid 2.1 UA: Large blood. Large leukoesterase WBC 1 each to Influenza type A, type B, RSV, COVID-19: Not detected Assessment and plan: -Acute UTI secondary to Cassidy catheter [chronic ), from procidentia Stuartii, Proteus mirabilis IV ceftriaxone, changed over to IV cefepime 2 g to 8. -Sepsis with positive blood cultures growing staph aureus, Staphylococcus epidermidis. [May 12] IV vancomycin-changed over to IV cefepime-120 doses for discharge. ID following outpatient. Pending PICC line today -Acute delirium from UTI sepsis on presentation: Improved -Acute kidney injury secondary to ATN from improved Admission creatinine was 1.37, today 0.7 -Sacral decubitus ulcer, causing probable acute osteomyelitis Follow with wound care. IV cefepime -Chronic pain from underlying medical conditions. Lincoln schedule. Consult pain management -Chronic medical debility, patient on ambulatory -Chronic multiple sclerosis bilateral lower extremity contractures, left arm weakness -Patient has a PEG tube. But able to eat by mouth Feeding by mouth with assistance -Chronic Cassidy catheter for chronic bladder dysfunction -Full code Disposition: [facility] Past Medical History Past Medical History: No Reported History, Neurologic Disorder Additional Past Medical History / Comment(s): Patient diagnosed with MS 2008. Falls(most recently 11/04/2018). Arthritis left hip. Leg tremors. Bilateral LE contractures. migraines in past. Hx. of past bedsore between buttocks-since healed. History of Any Multi-Drug Resistant Organisms: None Reported Past Surgical History: Appendectomy, Back Surgery, Orthopedic Surgery Additional Past Surgical History / Comment(s): pain pump removed about 2 weeks ago 10/2018. lt knee meniscus repair. back sx plate/screws, nose severed off when cutlery grinder flew into face-had sx to repair Past Anesthesia/Blood Transfusion Reactions: No Reported Reaction Additional Past Anesthesia/Blood Transfusion Reaction / Comment(s): clausterphobia Past Psychological History: Depression Past Alcohol Use History: None Reported Past Drug Use History: None Reported, Marijuana Plan - Discharge Summary New Discharge Prescriptions: New Acetaminophen Tab [Tylenol] 650 mg PO Q6HR PRN tab PRN Reason: Mild Pain Or Fever > 100.5 Ertapenem [INVanz] 1 gm IVPB Q24H #40 each Vancomycin 1,000 mg IVPB Q12HR #20 each Continue bisacodyL [Bisacodyl] 10 mg PO Q12H PRN PRN Reason: Constipation Cyanocobalamin (Vitamin B-12) [Vitamin B-12] 1,000 mcg PO DAILY Baclofen [Lioresal] 10 mg PO Q8H PRN PRN Reason: Pain polyethylene glycoL 3350 [Miralax] 17 gram PO DAILY PRN PRN Reason: Constipation tiZANidine HCL 4 mg PO Q6H PRN PRN Reason: Pain Menthol [Biofreeze] 1 applic TOPICAL Q8H PRN PRN Reason: LOWER BACK PAIN Baclofen [Lioresal] 20 mg PO TID@0500,1300,2100 Prostat 30 ml PO BID Famotidine [Pepcid] 20 mg PO BID Doxazosin [Cardura] 1 mg PO HS Cholecalciferol [Vitamin D3 (25 Mcg = 1000 Iu)] 25 mcg PO DAILY guaiFENesin [guaiFENesin Oral Solution] 200 mg PO TID PRN PRN Reason: Cough HYDROcodone/APAP 10-325MG [Lincoln 10-325] 1 tab PO Q6H #12 tab Multivitamins, Thera [Multivitamin (formulary)] 1 tab PO HS Ascorbic Acid [Vitamin C] 500 mg PO DAILY Discharge Medication List Cyanocobalamin (Vitamin B-12) [Vitamin B-12] 1,000 mcg PO DAILY 11/11/18 [History] bisacodyL [Bisacodyl] 10 mg PO Q12H PRN 11/11/18 [History] Baclofen [Lioresal] 10 mg PO Q8H PRN 11/28/18 [History] polyethylene glycoL 3350 [Miralax] 17 gram PO DAILY PRN 11/28/18 [History] tiZANidine HCL 4 mg PO Q6H PRN 11/28/18 [History] Ascorbic Acid [Vitamin C] 500 mg PO DAILY 05/12/23 [History] Baclofen [Lioresal] 20 mg PO TID@0500,1300,2100 05/12/23 [History] Cholecalciferol [Vitamin D3 (25 Mcg = 1000 Iu)] 25 mcg PO DAILY 05/12/23 [History] Doxazosin [Cardura] 1 mg PO HS 05/12/23 [History] Famotidine [Pepcid] 20 mg PO BID 05/12/23 [History] Menthol [Biofreeze] 1 applic TOPICAL Q8H PRN 05/12/23 [History] Multivitamins, Thera [Multivitamin (formulary)] 1 tab PO HS 05/12/23 [History] Prostat 30 ml PO BID 05/12/23 [History] guaiFENesin [guaiFENesin Oral Solution] 200 mg PO TID PRN 05/12/23 [History] Acetaminophen Tab [Tylenol] 650 mg PO Q6HR PRN tab 05/18/23 [Rx] Ertapenem [INVanz] 1 gm IVPB Q24H #40 each 05/18/23 [Rx] HYDROcodone/APAP 10-325MG [Lincoln 10-325] 1 tab PO Q6H #12 tab 05/18/23 [Rx] Vancomycin 1,000 mg IVPB Q12HR #20 each 05/18/23 [Rx] Follow up Appointment(s)/Referral(s): Dheeraj Alex DO [Primary Care Provider] - 1-2 days (Please call for follow-up appointment.) Alis Newton MD [STAFF PHYSICIAN] - 3 Weeks (Please call for follow-up appointment.) Ambulatory/Diagnostic Orders: Basic Metabolic Panel [LAB.AMB] Location: None Selected C Reactive Protein [LAB.AMB] Location: None Selected Complete Blood Count w/diff [LAB.AMB] Location: None Selected Erythrocyte Sedimentation Rate [LAB.AMB] Location: None Selected
[2023-05-19] MEDS: ACETAMINOPHEN TAB 325 MG TAB PO PRN (17:45)
== END 2023-05-19 18:06 | DRG 698 ==
LOC: EC 13:43 → EEVIPCON 13:43 → 3SCARD 18:10 → 4SSUR 05-13 17:35
PROVIDERS: ADMIT Hospitalist; ATTEND Hospitalist
PROC: B5181ZA Fluoroscopy of Superior Vena Cava using Low Osmolar Contrast, Guidance (ICD-10-PCS; 2023-05-19)
PROC: B548ZZA Ultrasonography of Superior Vena Cava, Guidance (ICD-10-PCS; 2023-05-19)
PROC: 02HV33Z Insertion of Infusion Device into Superior Vena Cava, Percutaneous Approach (ICD-10-PCS; principal; 2023-05-19 14:30)
DX: T83.511A Infection and inflammatory reaction due to indwelling urethral catheter, initial encounter (principal); A41.01 Sepsis due to Methicillin susceptible Staphylococcus aureus; L89.154 Pressure ulcer of sacral region, stage 4; A41.59 Other Gram-negative sepsis; A41.1 Sepsis due to other specified staphylococcus; N17.0 Acute kidney failure with tubular necrosis; R65.20 Severe sepsis without septic shock; F05 Delirium due to known physiological condition; I69.354 Hemiplegia and hemiparesis following cerebral infarction affecting left non-dominant side; M46.28 Osteomyelitis of vertebra, sacral and sacrococcygeal region; E87.20 Acidosis, unspecified; Z16.12 Extended spectrum beta lactamase (ESBL) resistance; Z11.52 Encounter for screening for COVID-19; N39.0 Urinary tract infection, site not specified; F32.A Depression, unspecified; G35 Multiple sclerosis; M16.12 Unilateral primary osteoarthritis, left hip; Z74.01 Bed confinement status; Z93.1 Gastrostomy status; G89.29 Other chronic pain; E86.0 Dehydration; M62.462 Contracture of muscle, left lower leg; M62.461 Contracture of muscle, right lower leg; Y84.6 Urinary catheterization as the cause of abnormal reaction of the patient, or of later complication, without mention of misadventure at the time of the procedure
CPT/HCPCS: 36415; 36573; 71045; 72192; 80048; 80053; 80202; 81001; 82565; 83605; 84145; 85025; 85610; 85652; 85730; 87040; 87070; 87075; 87077; 87086; 87186; 87205; 87636; 93005; 94760; 96365; 96366; 96367; 96375; 99285

== ENCOUNTER 2023-08-16 17:57 | Emergency (ER) | payer MEDICARE ==
[2023-08-16 18:17] VITALS: TEMP 98.7
[2023-08-16] MEDS: MORPHINE SULFATE 4 MG/ML SYRINGE IV STA (18:53)
--- NOTE | 2023-08-16 18:58 | ED ---
Lower Extremity Injury HPI - General Chief Complaint: Extremity Injury, Lower Stated Complaint: L femur fracture Time Seen by Provider: 08/16/23 18:03 Source: patient, EMS Mode of arrival: EMS Limitations: physical limitation - History of Present Illness Initial Comments: This 68-year-old male presents with complaint of some left hip pain. He states that this has been present for approximately 1 year. It apparently is somewhat worse recently. He denies any actual trauma. The patient does present from [facility] via EMS. He has a history of MS and has significant contractures of his lower extremities. He apparently had an x-ray at the [facility] yesterday and this showed a possible left hip fracture but radiologist recommended repeat x-rays or CT scan of the left hip. The patient is nonambulatory. He adamantly denies any trauma whatsoever. He does have a history of decubitus ulcer to his buttock region and has wound VAC on currently. He states that he is not on IV antibiotics in this regard currently. He denies any recent fevers or chills. No other complaints or modifying factors. - Related Data Home Medications Medication Instructions Recorded Confirmed Cyanocobalamin (Vitamin B-12) 1,000 mcg PO DAILY 11/11/18 05/12/23 [Vitamin B-12] bisacodyL [Bisacodyl] 10 mg PO Q12H PRN 11/11/18 05/12/23 Baclofen [Lioresal] 10 mg PO Q8H PRN 11/28/18 05/12/23 polyethylene glycoL 3350 [Miralax] 17 gram PO DAILY PRN 11/28/18 05/12/23 tiZANidine HCL 4 mg PO Q6H PRN 11/28/18 05/12/23 Ascorbic Acid [Vitamin C] 500 mg PO DAILY 05/12/23 05/12/23 Baclofen [Lioresal] 20 mg PO TID@0500,1300,2100 05/12/23 05/12/23 Cholecalciferol [Vitamin D3 (25 25 mcg PO DAILY 05/12/23 05/12/23 Mcg = 1000 Iu)] Doxazosin [Cardura] 1 mg PO HS 05/12/23 05/12/23 Famotidine [Pepcid] 20 mg PO BID 05/12/23 05/12/23 Menthol [Biofreeze] 1 applic TOPICAL Q8H PRN 05/12/23 05/12/23 Multivitamins, Thera [Multivitamin 1 tab PO HS 05/12/23 05/12/23 (formulary)] Prostat 30 ml PO BID 05/12/23 05/12/23 guaiFENesin [guaiFENesin Oral 200 mg PO TID PRN 05/12/23 05/12/23 Solution] Previous Rx's Medication Instructions Recorded Acetaminophen Tab [Tylenol] 650 mg PO Q6HR PRN tab 05/18/23 Ertapenem [INVanz] 1 gm IVPB Q24H #40 each 05/18/23 HYDROcodone/APAP 10-325MG [Fordyce 1 tab PO Q6H #12 tab 05/18/23 10-325] Vancomycin 1,000 mg IVPB Q12HR #20 each 05/18/23 Allergies Allergy/AdvReac Type Severity Reaction Status Date / Time No Known Allergies Allergy Verified 05/12/23 15:03 Review of Systems ROS Statement: Those systems with pertinent positive or pertinent negative responses have been documented in the HPI. ROS Other: All systems not noted in ROS Statement are negative. Past Medical History Past Medical History: No Reported History, Neurologic Disorder Additional Past Medical History / Comment(s): Patient diagnosed with MS 2009. Falls(most recently 11/04/2018). Arthritis left hip. Leg tremors. Bilateral LE contractures. migraines in past. Hx. of past bedsore between buttocks-since healed. History of Any Multi-Drug Resistant Organisms: ESBL Date of last positivie culture/infection: 05/15/23 MDRO Source:: Buttock Past Surgical History: Appendectomy, Back Surgery, Orthopedic Surgery Additional Past Surgical History / Comment(s): pain pump removed about 2 weeks ago 10/2018. lt knee meniscus repair. back sx plate/screws, nose severed off when grinder set up operator gear tool flew into face-had sx to repair Past Anesthesia/Blood Transfusion Reactions: No Reported Reaction Additional Past Anesthesia/Blood Transfusion Reaction / Comment(s): clausterphobia Past Psychological History: Depression Smoking Status: Former smoker Past Alcohol Use History: None Reported Past Drug Use History: None Reported, Marijuana - Past Family History Mother Family Medical History: Cancer, Dementia Additional Family Medical History / Comment(s): breast cancer Father Additional Family Medical History / Comment(s): after anuerysm sx General Exam - General Exam Comments Initial Comments: GENERAL: The patient is well nourished and well hydrated. VITAL SIGNS: Heart rate, blood pressure, respiratory rate reviewed as recorded in nurse's notes. EYES: Pupils are round and reactive. Extraocular movements are intact. No conjunctival / lid redness or swelling. ENT: No external evidence of injury, swelling, or ecchymosis. Airway is patent. Throat is clear. NECK: Nontender. No swelling or evidence of injury. No subcutaneous emphysema. Trachea is midline. No thyroid mass. HEART: Regular rate and rhythm. Good peripheral pulses. LUNGS/CHEST: Breath sounds clear and equal bilaterally. No rales, rhonchi, or wheezes. No ecchymosis, subcutaneous emphysema, or tenderness. ABDOMEN: Abdomen soft without tenderness. No palpable masses or organomegaly. No peritoneal signs. No abdominal wall swelling or ecchymosis. EXTREMITIES: Significant contractures of bilateral lower extremities. Tenderness noted over the left hip. There is pain with any movement of the left leg. No other musculoskeletal abnormalities noted. NEUROLOGIC: Sensation is grossly intact. Cranial nerve exam reveals face is symmetrical, tongue is midline, speech is clear. SKIN: No abrasions or ecchymosis is noted. No induration or masses noted. Patient has large wound dressing and wound VAC noted over the decubitus region. PSYCHIATRIC: Alert and oriented. Appropriate behavior and judgment. Limitations: physical limitation Course Vital Signs 08/16/23 08/16/23 18:06 20:10 Temperature 98.7 F Pulse Rate 74 79 Respiratory 16 18 Rate Blood Pressure 131/73 134/85 O2 Sat by Pulse 92 L 91 L Oximetry Medical Decision Making - Medical Decision Making The patient was seen and examined. IV is established and he received 4 mg of m orphine intravenously for pain. EKG shows a normal sinus rhythm at a rate of 79. There is no acute ST or T wave changes noted per my interpretation. Intervals are normal. The patient had a CT scan of his left hip. This does show some mild subluxation as well as degenerative changes but there is no evidence of fracture or acute process per my interpretation and radiologist interpretation. CBC shows mild anemia and remainder of labs are pending. The patient received additional morphine upon request intravenously. Patient and daughter updated in regards to his CT scan. Overall, it is felt as though he has significant chronic changes to his hip. It is felt as though he is stable for discharge home. He may follow-up with orthopedic surgery on outpatient basis if need be. He does have severe contractions related to his MS. It is felt unlikely that he would be a surgical candidate. It is also felt as though he should follow-up with his physician at [facility] for better pain management. He states that the Fordyce that he takes does not seem to be very helpful. Return parameters are discussed. Was pt. sent in by a medical professional or institution (, SHANNAN, DICER OPERATOR, urgent care, hospital, or care home...) When possible be specific @ -No Did you speak to anyone other than the patient for history (EMS, parent, family, police, friend...)? What history was obtained from this source @ -Patient's daughter also is present and gives additional history. Did you review nursing and triage notes (agree or disagree)? Why? @ -I reviewed and agree with nursing and triage notes Were old charts reviewed (outside hosp., previous admission, EMS record, old EKG, old radiological studies, urgent care reports/EKG's, care home records)? Report findings @ -Old charts are reviewed and additional past medical history is obtained. Differential Diagnosis (chest pain, altered mental status, abdominal pain women, abdominal pain men, vaginal bleeding, weakness, fever, dyspnea, syncope, headache, dizziness, GI bleed, back pain, seizure, CVA, palpatations, mental health, musculoskeletal)? @ -Hip arthritis, hip fracture, chronic hip changes. EKG interpreted by me (3pts min.). @ -As above X-rays interpreted by me (1pt min.). @ -None done CT interpreted by me (1pt min.). @ -As above U/S interpreted by me (1pt. min.). @ -None done What testing was considered but not performed or refused? (CT, X-rays, U/S, labs)? Why? @ -None What meds were considered but not given or refused? Why? @ -None Did you discuss the management of the patient with other professionals (professionals i.e. SHANNAN Laguerre, DICER OPERATOR, lab, RT, psych nurse, medical social consultant, stogie packer, teacher, customer service officer, showcase trimmer)? Give summary @ -No Was smoking cessation discussed for >3mins.? @ -No Was critical care preformed (if so, how long)? @ -No Were there social determinants of health that impacted care today? How? (Homelessness, low income, unemployed, alcoholism, drug addiction, transportation, low edu. Level, literacy, decrease access to med. care, residential, rehab)? @ -No Was there de-escalation of care discussed even if they declined (Discuss DNR or withdrawal of care, Hospice)? DNR status @ -No What co-morbidities impacted this encounter? (DM, HTN, Smoking, COPD, CAD, Cancer, CVA, ARF, Chemo, Hep., AIDS, mental health diagnosis, sleep apnea, morbid obesity)? @ -Multiple sclerosis, multiple extremity contractures Was patient admitted / discharged? Hospital course, mention meds given and route, prescriptions, significant lab abnormalities, going to OR and other pertinent info. @ -Patient is discharged home. Undiagnosed new problem with uncertain prognosis? @ -No Drug Therapy requiring intensive monitoring for toxicity (Heparin, Nitro, Insulin, Cardizem)? @ -No Were any procedures done? @ -No Diagnosis/symptom? @ -Left hip pain, multiple contractures, multiple sclerosis Acute, or Chronic, or Acute on Chronic? @ -Chronic Uncomplicated (without systemic symptoms) or Complicated (systemic symptoms)? @ -Uncomplicated Side effects of treatment? @ -No Exacerbation, Progression, or Severe Exacerbation? @ -Exacerbation Poses a threat to life or bodily function? How? (Chest pain, USA, MT, pneumonia, PE, COPD, DKA, ARF, appy, cholecystitis, CVA, Diverticulitis, Homicidal, Suicidal, threat to staff... and all critical care pts) @ -No - Lab Data Result diagrams: 08/16/23 19:03 Lab Results 08/16/23 08/16/23 Range/Units 19:03 19:03 WBC 8.6 (3.8-10.6) k/uL RBC 4.25 L (4.30-5.90) m/uL Hgb 12.1 L (13.0-17.5) gm/dL Hct 38.6 L (39.0-53.0) % MCV 90.8 (80.0-100.0) fL MCH 28.5 (25.0-35.0) pg MCHC 31.4 (31.0-37.0) g/dL RDW 14.1 (11.5-15.5) % Plt Count 309 (150-450) k/uL MPV 7.6 Neutrophils % 61 % Lymphocytes % 27 % Monocytes % 4 % Eosinophils % 6 % Basophils % 0 % Neutrophils # 5.2 (1.3-7.7) k/uL Lymphocytes # 2.3 (1.0-4.8) k/uL Monocytes # 0.4 (0-1.0) k/uL Eosinophils # 0.5 (0-0.7) k/uL Basophils # 0.0 (0-0.2) k/uL PT 10.6 (10.0-12.5) sec INR 1.0 (<1.2) APTT 26.9 (22.0-30.0) sec Disposition Clinical Impression: Left hip pain, Stage IV pressure ulcer of sacral region, History of multiple sclerosis, Chronic pain, Contracture of muscle of lower leg, Arthritis Disposition: HOME SELF-CARE Condition: Good Instructions (If sedation given, give patient instructions): Hip Pain (ED) Additional Instructions: Please discuss with primary care in regards to additional pain management. The CT scan of your left hip does not show any evidence of fracture. It did show significant degenerative changes/arthritis. Is patient prescribed a controlled substance at d/c from ED?: No Referrals: Sydni Lutz DO [Primary Care Provider] - 1-2 days Time of Disposition: 20:46
[2023-08-16 19:09] LABS: Basophils % (A) 0 %; Eosinophils # (A) 0.5 k/uL (0-0.7); Eosinophils % (A) 6 %; HCT 38.6 % (39.0-53.0); HGB 12.1 gm/dL (13.0-17.5); Lymphocytes # (A) 2.3 k/uL (1.0-4.8); Lymphocytes % (A) 27 %; MCH 28.5 pg (25.0-35.0); MCHC 31.4 g/dL (31.0-37.0); MCV 90.8 fL (80.0-100.0); Mean Platelet Volume 7.6; Monocytes # (A) 0.4 k/uL (0-1.0); Monocytes % (A) 4 %; Neutrophils # (A) 5.2 k/uL (1.3-7.7); Neutrophils % (A) 61 %; Platelet Count 309 k/uL (150-450); RBC 4.25 m/uL (4.30-5.90); RDW 14.1 % (11.5-15.5); WBC 8.6 k/uL (3.8-10.6)
--- NOTE | 2023-08-16 19:56 | CT ---
EXAMINATION TYPE: CT hip LT wo con CT DLP: 615.7 mGycm, Automated exposure control for dose reduction was used. DATE OF EXAM: 08/16/2023 7:30 PM COMPARISON: . 07/28/2013. CLINICAL INDICATION:Male, 68 years old with history of fracture; [facility], Sent from urgent care for possi ble fracture- unsure of new or old fracture. Severe MS, lower extremity contraction. TECHNIQUE: Axial images were obtained of the CT hip LT wo con, Additional coronal and sagittal reform atted images and soft tissue and bone window were obtained for review. 3-D reconstruction was created on a separate workstation. Contrast used: mL of , (None if empty) Oral contrast used: (None if empty) FINDINGS: Severe degeneration changes of the left hip with osteophyte formation and joint space narro wing. There is mild subluxation of the femoral head posteriorly. With large osteophytes present. No e vidence of fracture. Fixation hardware in the lower spine appears intact. Cassidy catheter is in appropriate position . IMPRESSION: 1. Chronic deformity of the left hip with severe degeneration changes and mild subluxation. 2. Post surgical changes to the lower spine partially visualized appear intact. 3. Cassidy catheter in appropriate position.
[2023-08-16 20:10] LABS: Partial Thromboplastin Time 26.9 sec (22.0-30.0); Prothrombin Time 10.6 sec (10.0-12.5)
[2023-08-16 20:35] VITALS: RESP 18
[2023-08-16 21:22] LABS: ALT 10 U/L (4-49); AST 15 U/L (17-59); African American GFR (CKD) >90 (>60 ml/min/1.73 sqM); Albumin 3.4 g/dL (3.5-5.0); Alkaline Phosphatase 95 U/L (38-126); Anion Gap 7 mmol/L; Blood Urea Nitrogen 17 mg/dL (9-20); Calcium 9.2 mg/dL (8.4-10.2); Carbon Dioxide 25 mmol/L (22-30); Chloride 107 mmol/L (98-107); Glucose 102 mg/dL (74-99); Non-African American GFR(CKD) >90 (>60 ml/min/1.73 sqM); Potassium 4.3 mmol/L (3.5-5.1); Sodium 139 mmol/L (137-145); Total Bilirubin 0.6 mg/dL (0.2-1.3); Total Protein 6.3 g/dL (6.3-8.2)
[2023-08-16] MEDS: MORPHINE SULFATE 4 MG/ML SYRINGE IVP STA (21:23)
[2023-08-17] MEDS: MORPHINE SULFATE 4 MG/ML SYRINGE IVP STA (00:08)
[2023-08-17 00:14] VITALS: BP 119/92; PULSE 92
== END 2023-08-17 00:40 | disposition home or self-care (01) ==
LOC: EC 17:57
DX: G89.29 Other chronic pain (principal); M25.552 Pain in left hip; L89.304 Pressure ulcer of unspecified buttock, stage 4; M62.461 Contracture of muscle, right lower leg; M62.462 Contracture of muscle, left lower leg; Z87.891 Personal history of nicotine dependence
CPT/HCPCS: 36415; 93005; 80053; 85025; 85610; 85730; 73700; 99285; 96374; 96376 ×2; J2270

== ENCOUNTER 2023-08-22 11:19 | Emergency (ER) | payer MEDICARE ==
[2023-08-22 12:00] VITALS: PULSE 65; TEMP 97.7
[2023-08-22 13:22] LABS: Basophils % (A) 0 %; Eosinophils # (A) 0.3 k/uL (0-0.7); Eosinophils % (A) 3 %; HCT 37.2 % (39.0-53.0); HGB 11.8 gm/dL (13.0-17.5); Lymphocytes # (A) 1.7 k/uL (1.0-4.8); Lymphocytes % (A) 23 %; MCH 28.8 pg (25.0-35.0); MCHC 31.6 g/dL (31.0-37.0); MCV 91.2 fL (80.0-100.0); Mean Platelet Volume 7.5; Monocytes # (A) 0.4 k/uL (0-1.0); Monocytes % (A) 5 %; Neutrophils # (A) 5.1 k/uL (1.3-7.7); Neutrophils % (A) 67 %; Platelet Count 375 k/uL (150-450); RBC 4.08 m/uL (4.30-5.90); RDW 13.8 % (11.5-15.5); WBC 7.6 k/uL (3.8-10.6)
[2023-08-22 13:24] VITALS: RESP 16
--- NOTE | 2023-08-22 13:28 | ED ---
General Adult HPI - General Chief complaint: Recheck/Abnormal Lab/Rx Stated complaint: Low blood pressure Time Seen by Provider: 08/22/23 11:26 Source: patient, RN notes reviewed Mode of arrival: wheelchair Limitations: no limitations - History of Present Illness Initial comments: 68-year-old male presents emergency department chief complaint of low blood pressure. Patient was over at [facility] for his visit for his decubital ulcer. They did a normal debridement but noted that his blood pressure was low so sent over for evaluation. He states he is tired because he did not sleep well last night but denies any other complaints of fever chills night sweats. Patient has complaint abdominal pain no chest pain no shortness of breath patient does have MS and is wheelchair-bound. - Related Data Home Medications Medication Instructions Recorded Confirmed Cyanocobalamin (Vitamin B-12) 1,000 mcg PO DAILY 11/11/18 08/22/23 [Vitamin B-12] bisacodyL [Bisacodyl] 10 mg PO Q12H PRN 11/11/18 08/22/23 polyethylene glycoL 3350 [Miralax] 17 gram PO DAILY PRN 11/28/18 08/22/23 tiZANidine HCL 4 mg PO Q6H PRN 11/28/18 08/22/23 Ascorbic Acid [Vitamin C] 500 mg PO DAILY 05/12/23 08/22/23 Baclofen [Lioresal] 20 mg PO TID@0500,1300,2100 05/12/23 08/22/23 Cholecalciferol [Vitamin D3 (25 25 mcg PO DAILY 05/12/23 08/22/23 Mcg = 1000 Iu)] Doxazosin [Cardura] 1 mg PO HS 05/12/23 08/22/23 Famotidine [Pepcid] 20 mg PO BID 05/12/23 08/22/23 Menthol [Biofreeze] 1 applic TOPICAL Q8H PRN 05/12/23 08/22/23 Multivitamins, Thera [Multivitamin 1 tab PO HS 05/12/23 08/22/23 (formulary)] guaiFENesin [guaiFENesin Oral 200 mg PO Q8H PRN 05/12/23 08/22/23 Solution] Gabapentin [Neurontin] 100 mg PO HS 08/22/23 08/22/23 HYDROcodone/APAP 10-325MG [[place] 1 tab PO Q4H 08/22/23 08/22/23 10-325] Naloxone HCl [Narcan] 4 mg NASAL DIRECTED PRN 08/22/23 08/22/23 Previous Rx's Medication Instructions Recorded Acetaminophen Tab [Tylenol] 650 mg PO Q6HR PRN tab 05/18/23 Allergies Allergy/AdvReac Type Severity Reaction Status Date / Time No Known Allergies Allergy Verified 08/22/23 13:11 Review of Systems ROS Statement: Those systems with pertinent positive or pertinent negative responses have been documented in the HPI. ROS Other: All systems not noted in ROS Statement are negative. Past Medical History Past Medical History: No Reported History, Neurologic Disorder Additional Past Medical History / Comment(s): Patient diagnosed with MS 2008. Falls(most recently 11/04/2018). Arthritis left hip. Leg tremors. Bilateral LE contractures. migraines in past. Hx. of past bedsore between buttocks-since healed. History of Any Multi-Drug Resistant Organisms: ESBL Date of last positivie culture/infection: 05/15/23 MDRO Source:: Buttock Past Surgical History: Appendectomy, Back Surgery, Orthopedic Surgery Additional Past Surgical History / Comment(s): pain pump removed about 2 weeks ago 10/2018. lt knee meniscus repair. back sx plate/screws, nose severed off when edge grinder flew into face-had sx to repair Past Anesthesia/Blood Transfusion Reactions: No Reported Reaction Additional Past Anesthesia/Blood Transfusion Reaction / Comment(s): clausterphobia Past Psychological History: Depression Smoking Status: Former smoker - Past Family History Mother Family Medical History: Cancer, Dementia Additional Family Medical History / Comment(s): breast cancer Father Additional Family Medical History / Comment(s): after anuerysm sx General Exam Limitations: no limitations General appearance: alert, in no apparent distress Head exam: Present: atraumatic, normocephalic, normal inspection Eye exam: Present: normal appearance, PERRL, EOMI. Absent: scleral icterus, conjunctival injection, periorbital swelling Neck exam: Present: normal inspection, full ROM. Absent: tenderness, meningismus, lymphadenopathy Respiratory exam: Present: normal lung sounds bilaterally, decreased breath sounds. Absent: respiratory distress, wheezes, rales, rhonchi, stridor Cardiovascular Exam: Present: regular rate, normal rhythm, normal heart sounds. Absent: systolic murmur, diastolic murmur, rubs, gallop, clicks GI/Abdominal exam: Present: soft, normal bowel sounds. Absent: distended, tenderness, guarding, rebound, rigid Course Vital Signs 08/22/23 08/22/23 08/22/23 11:20 13:14 13:59 Temperature 97.7 F Pulse Rate 65 Respiratory 18 16 Rate Blood Pressure 104/66 109/72 121/71 O2 Sat by Pulse 97 Oximetry Medical Decision Making - Medical Decision Making Was pt. sent in by a medical professional or institution (, PA, SAFEKEEPING CLERK, urgent care, hospital, or assisted...) When possible be specific @ -Wound care Did you speak to anyone other than the patient for history (EMS, parent, family, police, friend...)? What history was obtained from this source @ -F workup regarding past medical history Did you review nursing and triage notes (agree or disagree)? Why? @ -I reviewed and agree with nursing and triage notes Were old charts reviewed (outside hosp., previous admission, EMS record, old EKG, old radiological studies, urgent care reports/EKG's, assisted records)? Report findings @ -No old charts were reviewed Differential Diagnosis (chest pain, altered mental status, abdominal pain women, abdominal pain men, vaginal bleeding, weakness, fever, dyspnea, syncope, headache, dizziness, GI bleed, back pain, seizure, CVA, palpatations, mental health, musculoskeletal)? @ -Differential Weakness: Hypoglycemia, shock, sepsis, hyponatremia, anemia, infection, AL, ETOH, adverse medicine reaction, overdose, stroke, this is not meant to be an all-inclusive list. EKG interpreted by me (3pts min.). @ -As above X-rays interpreted by me (1pt min.). @ -None done CT interpreted by me (1pt min.). @ -None done U/S interpreted by me (1pt. min.). @ -None done What testing was considered but not performed or refused? (CT, X-rays, U/S, labs)? Why? @ -None What meds were considered but not given or refused? Why? @ -None Did you discuss the management of the patient with other professionals (pro fessionals i.e. , PA, SAFEKEEPING CLERK, lab, RT, psych nurse, social media manager, automation control integrator, teacher, artillery officer, clinical case manager)? Give summary @ -No Was smoking cessation discussed for >3mins.? @ -No Was critical care preformed (if so, how long)? @ -No Were there social determinants of health that impacted care today? How? (Homelessness, low income, unemployed, alcoholism, drug addiction, transportation, low edu. Level, literacy, decrease access to med. care, fdc, rehab)? @ -No Was there de-escalation of care discussed even if they declined (Discuss DNR or withdrawal of care, Hospice)? DNR status @ -No What co-morbidities impacted this encounter? (DM, HTN, Smoking, COPD, CAD, Cancer, CVA, ARF, Chemo, Hep., AIDS, mental health diagnosis, sleep apnea, morbid obesity)? @ -MS, chronic wounds Was patient admitted / discharged? Hospital course, mention meds given and route, prescriptions, significant lab abnormalities, going to OR and other pertinent info. @ -Charge patient's blood pressure has been within normal limits, laboratory studies did not reveal any acute findings. Patient is stable for discharge back to [facility] and updated on results. Undiagnosed new problem with uncertain prognosis? @ -No Drug Therapy requiring intensive monitoring for toxicity (Heparin, Nitro, Insulin, Cardizem)? @ -No Were any procedures done? @ -No Diagnosis/symptom? @ -Decubitus ulcer Acute, or Chronic, or Acute on Chronic? @ -Acute Uncomplicated (without systemic symptoms) or Complicated (systemic symptoms)? @ -Uncomplicated Side effects of treatment? @ -No Exacerbation, Progression, or Severe Exacerbation? @ -No Poses a threat to life or bodily function? How? (Chest pain, USA, AL, pneumonia, PE, COPD, DKA, ARF, appy, cholecystitis, CVA, Diverticulitis, Homicidal, Suicidal, threat to staff... and all critical care pts) @ -No - Lab Data Result diagrams: 08/22/23 11:42 08/22/23 11:42 Lab Results 08/22/23 08/22/23 08/22/23 Range/Units 11:42 11:42 11:42 WBC 7.6 (3.8-10.6) k/uL RBC 4.08 L (4.30-5.90) m/uL Hgb 11.8 L (13.0-17.5) gm/dL Hct 37.2 L (39.0-53.0) % MCV 91.2 (80.0-100.0) fL MCH 28.8 (25.0-35.0) pg MCHC 31.6 (31.0-37.0) g/dL RDW 13.8 (11.5-15.5) % Plt Count 375 (150-450) k/uL MPV 7.5 Neutrophils % 67 % Lymphocytes % 23 % Monocytes % 5 % Eosinophils % 3 % Basophils % 0 % Neutrophils # 5.1 (1.3-7.7) k/uL Lymphocytes # 1.7 (1.0-4.8) k/uL Monocytes # 0.4 (0-1.0) k/uL Eosinophils # 0.3 (0-0.7) k/uL Basophils # 0.0 (0-0.2) k/uL Sodium 139 (137-145) mmol/L Potassium 4.0 (3.5-5.1) mmol/L Chloride 108 H (98-107) mmol/L Carbon Dioxide 27 (22-30) mmol/L Anion Gap 4 mmol/L BUN 16 (9-20) mg/dL Creatinine 0.60 L (0.66-1.25) mg/dL Est GFR (CKD-EPI)AfAm >90 (>60 ml/min/1.73 sqM) Est GFR (CKD-EPI)NonAf >90 (>60 ml/min/1.73 sqM) Glucose 98 (74-99) mg/dL Plasma Lactic Acid Aung 1.1 (0.7-2.0) mmol/L Calcium 9.1 (8.4-10.2) mg/dL Total Bilirubin 0.3 (0.2-1.3) mg/dL AST 14 L (17-59) U/L ALT 9 (4-49) U/L Alkaline Phosphatase 103 (38-126) U/L C-Reactive Protein 1.1 H (<1.0) mg/dL Total Protein 6.2 L (6.3-8.2) g/dL Albumin 3.3 L (3.5-5.0) g/dL Disposition Clinical Impression: Decubital ulcer Disposition: HOME SELF-CARE Condition: Stable Additional Instructions: Please return to the Emergency Department if symptoms worsen or any other concerns. Is patient prescribed a controlled substance at d/c from ED?: No Referrals: Dheeraj Alex DO [Primary Care Provider] - 1-2 days Time of Disposition: 13:58
[2023-08-22 13:42] LABS: ALT 9 U/L (4-49); AST 14 U/L (17-59); African American GFR (CKD) >90 (>60 ml/min/1.73 sqM); Albumin 3.3 g/dL (3.5-5.0); Alkaline Phosphatase 103 U/L (38-126); Anion Gap 4 mmol/L; Blood Urea Nitrogen 16 mg/dL (9-20); C Reactive Protein 1.1 mg/dL (<1.0); Calcium 9.1 mg/dL (8.4-10.2); Carbon Dioxide 27 mmol/L (22-30); Chloride 108 mmol/L (98-107); Glucose 98 mg/dL (74-99); Non-African American GFR(CKD) >90 (>60 ml/min/1.73 sqM); Sodium 139 mmol/L (137-145); Total Bilirubin 0.3 mg/dL (0.2-1.3); Total Protein 6.2 g/dL (6.3-8.2)
[2023-08-22 14:07] VITALS: BP 121/71
== END 2023-08-22 14:18 | disposition home or self-care (01) ==
LOC: EC 11:19
DX: L89.309 Pressure ulcer of unspecified buttock, unspecified stage (principal); Z87.891 Personal history of nicotine dependence
CPT/HCPCS: 36415; 80053; 83605; 85025; 86140; 99284